=== PATIENT | female | born 1990 | race Caucasian/White ===

== ENCOUNTER 2021-03-26 12:33 | Inpatient (IN) | payer MEDICAID ==
[2021-03-26] MEDS ORDERED: OXYTOCIN 10 UNIT/ML VIAL IM PRN (12:53)
[2021-03-26] MEDS ORDERED: METHYLERGONOVINE 0.2 MG/ML VIAL IM PRN (12:53)
[2021-03-26] MEDS ORDERED: TRANEXAMIC ACID IN NACL 1,000 MG/100 ML BAG IV PRN (12:53)
[2021-03-26] MEDS ORDERED: OXYTOCIN/SODIUM CHLORIDE 500 ML IV PRN ×2 (12:53→19:26)
[2021-03-26] MEDS ORDERED: SODIUM CHLORIDE FLUSH 0.9% 10 ML SYRINGE IVP PRN ×3 (12:53→19:26)
[2021-03-26] MEDS ORDERED: METOCLOPRAMIDE 10 MG/2 ML VIAL IVP PRN (12:53)
[2021-03-26] MEDS ORDERED: hydrALAZINE INJ 20 MG/ML VIAL IVP PRN (12:53)
[2021-03-26] MEDS ORDERED: LIDOCAINE-MPF 1% 30 ML VIAL ID PRN (12:53)
[2021-03-26] MEDS ORDERED: miSOPROStoL 200 MCG TABLET BC PRN (12:53)
[2021-03-26] MEDS ORDERED: NIFEdipine 10 MG CAPSULE PO PRN (12:53)
[2021-03-26] MEDS ORDERED: LABETALOL 20 MG/4 ML SYRINGE IVP PRN ×2 (12:53)
[2021-03-26] MEDS ORDERED: CARBOPROST TROMETHAMINE 250 MCG/ML AMP IM PRN (12:53)
[2021-03-26] MEDS ORDERED: LACTATED RINGERS 1,000 ML IV SCH ×2 (13:00→18:00)
[2021-03-26 13:23] LABS: BASOPHILS % (AUTO) 0.2 %; EOSINOPHILS # (AUTO) 0.1 10^3/uL (0.0-0.7); EOSINOPHILS % (AUTO) 0.5 %; HCT - HEMATOCRIT 37.9 % (37.0-47.0); HGB - HEMOGLOBIN 12.8 g/dL (12.0-16.0); LYMPHOCYTES # (AUTO) 1.8 10^3/uL (1.5-3.5); LYMPHOCYTES % (AUTO) 15.8 %; MEAN CORPUSCULAR HEMOGLOBIN 30.5 pg (27.0-31.0); MEAN CORPUSCULAR HGB CONC 33.8 g/dL (32.0-36.0); MEAN CORPUSCULAR VOLUME 90.5 fL (81.0-99.0); MEAN PLATELET VOLUME 11.9 fL (7.9-10.8); MONOCYTES # (AUTO) 0.6 10^3/uL (0.0-1.0); MONOCYTES % (AUTO) 5.1 %; NEUTROPHILS # (AUTO) 8.7 10^3/uL (1.5-6.6); NEUTROPHILS % (AUTO) 78.1 %; PLT - PLATELET COUNT 203 10^3/uL (130-450); RED BLOOD COUNT 4.19 10^6/uL (4.20-5.40); WHITE BLOOD COUNT 11.1 x10^3/uL (4.8-10.8)
[2021-03-26 13:39] LABS: ALBUMIN/GLOBULIN RATIO 0.9 (1.0-2.2); BILIRUBIN,TOTAL 0.4 mg/dL (0.2-1.0); CALCIUM 9.4 mg/dL (8.5-10.3); CREATININE 0.6 mg/dL (0.4-1.0); POTASSIUM 3.6 mmol/L (3.5-5.0); TOTAL PROTEIN 6.5 g/dL (6.7-8.2)
[2021-03-26 14:35] LABS: MUDS CUTOFF CONCENTRATIONS CUTOFF CONC BELOW:
[2021-03-26 14:49] LABS: BILIRUBIN,URINE NEGATIVE (NEGATIVE); GLUCOSE, URINE (UA) NEGATIVE (NEGATIVE); KETONES,URINE (UA) NEGATIVE (NEGATIVE); LEUKOCYTE ESTERASE, URINE NEGATIVE (NEGATIVE); NITRITE,URINE NEGATIVE (NEGATIVE); OCCULT BLOOD,URINE NEGATIVE (NEGATIVE); PH,URINE 6.5 PH (5.0-7.5); PROTEIN,URINE TRACE mg/dL (NEGATIVE); UROBILINOGEN,URINE >=8.0 E.U./dL (NORMAL)
[2021-03-26 14:54] LABS: CLARITY,URINE CLOUDY (CLEAR)
[2021-03-26 15:01] LABS: CREATININE,URINE 167.6 mg/dL; PROTEIN/CREATININE RATIO,URINE 0.1 (<=0.2)
[2021-03-26 15:06] LABS: BACTERIA,URINE Many /HPF (None Seen); CRYSTALS,URINE >50 Calcium Oxalate /LPF; MUCUS,URINE Marked Strands; RBC,URINE 0-5 /HPF (0-5); SQUAMOUS EPITHELIAL CELL,UR MANY Squamous (<= Few)
[2021-03-26 15:14] LABS: AMPHETAMINE SCREEN,URINE NEGATIVE (NEGATIVE); BARBITURATE SCREEN,UR NEGATIVE (NEGATIVE); BENZODIAZEPINES SCREEN, URINE NEGATIVE (NEGATIVE); COCAINE SCREEN URINE NEGATIVE (NEGATIVE); METHADONE SCREEN, URINE NEGATIVE (NEGATIVE); METHAMPHETAMINES SCREEN, URINE NEGATIVE (NEGATIVE); OPIATE SCREEN, URINE NEGATIVE (NEGATIVE); OXYCODONE SCREEN, URINE NEGATIVE (NEGATIVE); PROPOXYPHENE SCREEN, URINE NEGATIVE (NEGATIVE); THC CANNABINOID SCREEN, URINE NEGATIVE (NEGATIVE); TRICYCLIC ANTIDEPRESSANT,URINE NEGATIVE (NEGATIVE)
--- NOTE | 2021-03-26 16:00 | ANESTHESIA ---
Pre-Anesthesia VS, & Labs - Diagnosis Previous C/S - Procedure repeat C/S Vital Signs: Temp Pulse Resp BP Pulse Ox 36.8 C 03/26/21 13:50 Height: 5 ft 8 in Weight (kg): 197.7 kg Body Mass Index: 66.2 BMI Classification: Morbidly Obese - NPO Last Fluid Intake: 11:00 Last Food Intake: 11:00 - Is Patient ?: Yes - Lab Results Current Lab Results: Laboratory Tests 03/26/21 14:05: Urine Opiates Screen NEGATIVE, Ur Oxycodone Screen NEGATIVE, Urine Methadone Screen NEGATIVE, Ur Propoxyphene Screen NEGATIVE, Ur Barbiturates Screen NEGATIVE, Ur Tricyclics Screen NEGATIVE, Ur Phencyclidine Scrn NEGATIVE, Ur Amphetamine Screen NEGATIVE, U Methamphetamines Scrn NEGATIVE, U Benzodiazepines Scrn NEGATIVE, Urine Cocaine Screen NEGATIVE, U Cannabinoids Screen NEGATIVE 03/26/21 13:50: Blood Type O POSITIVE, Antibody Screen NEGATIVE, Crossmatch IS Only See Detail 03/26/21 13:05: Blood Type Recheck O POSITIVE 03/26/21 13:05: Sodium 137, Potassium 3.6, Chloride 107, Carbon Dioxide 21, Anion Gap 9.0, BUN 8, Creatinine 0.6, Estimated GFR (MDRD) 117, Glucose 105 H, Calcium 9.4, Total Bilirubin 0.4, AST 15, ALT 14, Alkaline Phosphatase 142 H, Total Protein 6.5 L, Albumin 3.0 L, Globulin 3.5, Albumin/Globulin Ratio 0.9 L 03/26/21 13:05: WBC 11.1 H, RBC 4.19 L, Hgb 12.8, Hct 37.9, MCV 90.5, MCH 30.5, MCHC 33.8, RDW 14.0, Plt Count 203, MPV 11.9 H, Neut # (Auto) 8.7 H, Lymph # (Auto) 1.8, [place] # (Auto) 0.6, Eos # (Auto) 0.1, Baso # (Auto) 0.0, Absolute Nuc leated RBC 0.00, Nucleated RBC % 0.0 Lab results reviewed: Yes Fish Bones: 03/26/21 13:05 03/26/21 13:05 Home Medications and Allergies Active Medications Carboprost Tromethamine (Carboprost Tromethamine 250 Mcg/Ml Amp) 250 mcg IM Q15M PRN PRN Reason: Step 4: Hemorrhage protocol Stop: 03/31/21 12:54 Hydralazine HCl (Hydralazine Inj 20 Mg/Ml Vial) 5 - 20 mg IVP Q20M PRN; Protocol PRN Reason: SBP >160 or DBP >110 Oxytocin/Sodium Chloride (Pitocin/Sodium Chloride) 500 mls @ 999 mls/hr IV PRN PRN; Protocol PRN Reason: POST- HEMORR PREVENTION Stop: 03/31/21 12:54 Tranexamic Acid (Tranexamic 1,000 Mg/100ml-Nacl) 1,000 mg in 100 mls @ 600 mls/hr IV .ONCE PRN PRN Reason: EBL >1200mL and within 3hr Stop: 03/31/21 12:54 Lactated Ringer's (Lr) 1,000 mls @ 150 mls/hr IV .Q6H40M SARI Labetalol HCl (Labetalol 20 Mg/4 Ml Syringe) 20 mg IVP .ONCE PRN; Protocol PRN Reason: Step 9 of nifedipine protocol Stop: 03/31/21 12:55 Labetalol HCl (Labetalol 20 Mg/4 Ml Syringe) 40 mg IVP .ONCE PRN; Protocol PRN Reason: Step 9 of hydrALAZine protocol Stop: 03/31/21 12:55 Lidocaine HCl (Lidocaine-Mpf 1% 30 Ml Vial) 30 ml ID .ONCE PRN PRN Reason: PERINEAL REPAIR Stop: 03/31/21 12:54 Methylergonovine Maleate (Methylergonovine 0.2 Mg/Ml Vial) 0.2 mg IM .ONCE PRN PRN Reason: Step 2: Hemorrhage protocol Stop: 03/31/21 12:54 Metoclopramide HCl (Metoclopramide 10 Mg/2 Ml Vial) 10 mg IVP Q6H PRN PRN Reason: Nausea / Vomiting Misoprostol (Misoprostol 200 Mcg Tablet) 800 mcg BC .ONCE PRN PRN Reason: Step 3: Hemorrhage protocol Stop: 03/31/21 12:54 Nifedipine (Nifedipine 10 Mg Capsule) 10 - 20 mg PO Q20M PRN; Protocol PRN Reason: SBP >160 or DBP >110 Ondansetron HCl (Ondansetron 4 Mg/2 Ml Vial) 4 mg IVP Q4H PRN PRN Reason: Nausea / Vomiting Oxytocin (Oxytocin 10 Unit/Ml Vial) 10 unit IM .ONCE PRN PRN Reason: Step one: If no IV access Stop: 03/31/21 12:54 Sodium Chloride (Sodium Chloride Flush 0.9% 10 Ml Syringe) 10 ml IVP PRN PRN PRN Reason: NEEDED PER PROVIDER ORDERS Sodium Chloride (Sodium Chloride Flush 0.9% 10 Ml Syringe) 10 ml IVP 0100,0900,1700 SARI Bupropion HCl [Wellbutrin] 200 mg PO DAILY 05/16/14 Citalopram Hydrobromide [Celexa] 20 mg PO DAILY 05/16/14 Sumatriptan Succinate [Imitrex] 100 mg PO DAILY PRN 05/16/14 Levonorgestrel/Ethin.estradiol [Introvale 0.15-0.03 mg Tablet] 1 tab PO DAILY 02/11/15 Only taking PNV Allergies/Adverse Reactions: Allergies Allergy/AdvReac Type Severity Reaction Status Date / Time codeine Allergy Hives Verified 05/16/14 00:39 Penicillins Allergy Hives Verified 05/16/14 01:03 Sulfa (Sulfonamide Allergy Hives Verified 10/27/14 20:09 Antibiotics) Anes History & Medical History - Anesthetic History Anesthesia Complications: reports: No previous complications - Medical History Cardiovascular: reports: None Pulmonary: reports: Asthma (last inhalor use over 6 months ago) Gastrointestinal: reports: None Urinary: reports: None Neuro: reports: None Musculoskeletal: reports: None Endocrine/Autoimmune: reports: None Blood Disorders: reports: None Skin: reports: None Smoking Status: Current every day smoker Psychosocial: reports: Depression, Anxiety, Cannabis, Other (PTSD and bipolar) History of Cancer?: No - Surgical History Eyes Ears Nose Throat (EENT): reports: Tonsil/Adenoidectomy Gynecologic: reports: section Exam General: Alert, Oriented x3, Cooperative, No acute distress Dental: WNL Mouth Openin Fingerbreadth Neck Mobility: Normal Mallampati classification: II Thyromental Distance: 4-6 cm Mental/Cognitive Status: Alert/Oriented X3, Normal for patient Plan Anesthesia Type: Spinal Consent for Procedure(s) Verified and Reviewed: Yes Code Status: Attempt Resuscitation ASA classification: 3-Severe systemic disease Is this case an emergency?: No
[2021-03-26] MEDS ORDERED: BUPIVACAINE 0.5%-EPI 1:200000 PF 30 ML VIAL ONE ×2 (16:07→17:35)
[2021-03-26] MEDS ORDERED: CITRIC ACID/SODIUM CITRATE 15 ML UDC PO ONE (16:12)
[2021-03-26] MEDS ORDERED: OXYTOCIN 10 UNIT/ML VIAL ONE (16:21)
[2021-03-26] MEDS ORDERED: PHENYLEPHRINE 10 MG/ML VIAL ONE (16:21)
[2021-03-26] MEDS ORDERED: MORPHINE PF 5 MG/10 ML VIAL ONE (16:21)
[2021-03-26] MEDS ORDERED: fentaNYL 100 MCG/2 ML VIAL ONE (16:21)
[2021-03-26] MEDS ORDERED: CARBOPROST TROMETHAMINE 250 MCG/ML AMP IM ONE (16:23)
[2021-03-26] MEDS ORDERED: METHYLERGONOVINE 0.2 MG/ML VIAL ONE (16:23)
[2021-03-26] MEDS ORDERED: miSOPROStoL 200 MCG TABLET ONE (16:23)
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
--- NOTE | 2021-03-26 16:43 | Ultrasound Report ---
PROCEDURE: OB F/U or Repeat INDICATIONS: determine dating of , size. OUTSIDE/PRIOR DATING DATA: Last menstrual period (LMP): Unknown. LMP-based estimated date of delivery (CRISTIANO): Unknown. First dating scan (date and location): 03/26/2021 Estimated date of delivery (CRISTIANO) from first dating scan: 39 weeks 4 days. The below data below was generated using the ultrasound CRISTIANO of 03/26/2021 TECHNIQUE: Real-time scanning was performed of the fetus, with image documentation and biometric measurements. COMPARISON: None. FINDINGS: General: A single living intrauterine gestation is present. Presentation: Vertex Placenta: Placental position is anterior, without previa. Amniotic fluid index: 17.1 cm, largest pocket 6.9 cm heart rate: 132 beats per minute. Maternal cervical canal: 3.8 cm long; normal length is 2.5 cm or more. biometrics: Biparietal diameter: 9.4 cm 38 weeks 1 day Head circumference: 4.4 cm 39 weeks 5 days Abdominal circumference: 36.1 cm 40 weeks 0 days Femur length: 7.9 cm 40 weeks 3 days Estimated gestational age from initial scan: not applicable. Composite gestational age from present scan: 39 weeks 4 days Estimated weight and percentile: 3905 g 64th percentile Measurement variability in biometric dating: +/- 10 days from 12-20 weeks gestation, +/- 2 weeks from 20-30 weeks gestation, +/- 3 weeks at 30 weeks gestation or more. Other: Not applicable. IMPRESSION: 1. Single live intrauterine with ultrasound gestational age today of 39 weeks 4 days. 2. weight is at the 64th percentile. 3. MONTEZ is within normal limits. Reviewed by: Deborah Snyder MD on 03/26/2021 4:41 PM PDT Approved by: Deborah Snyder MD on 03/26/2021 4:41 PM PDT Station ID: [id number]
[2021-03-26] MEDS ORDERED: BUPIVACAINE 0.25% PF 30 ML VIAL ONE (17:35)
[2021-03-26] MEDS ORDERED: fentaNYL 100 MCG/2 ML VIAL IT ONE (17:38)
[2021-03-26] MEDS ORDERED: MORPHINE PF 5 MG/10 ML VIAL IT ONE (17:38)
[2021-03-26] MEDS ORDERED: BUPIVACAINE 0.5%-EPI 1:200000 PF 30 ML VIAL SUBQ ONE (18:00)
[2021-03-26] MEDS ORDERED: GENTAMICIN 80 MG/2 ML VIAL IV SCH (18:00)
[2021-03-26] MEDS ORDERED: GENTAMICIN IV SCH (18:00)
[2021-03-26] MEDS ORDERED: CLINDAMYCIN 900 MG/50 ML 50 ML IV ONE (18:00)
[2021-03-26] MEDS ORDERED: SODIUM CHLORIDE 0.9% IV SCH (18:00)
[2021-03-26] MEDS ORDERED: NALBUPHINE 10 MG/ML AMP IVP PRN (18:22)
[2021-03-26] MEDS ORDERED: NALOXONE 0.4 MG/ML VIAL IVP PRN ×2 (18:22→19:31)
[2021-03-26] MEDS: LACTATED RINGERS 1,000 ML IV SCH (18:30)
[2021-03-26] MEDS ORDERED: PROPOFOL 200 MG/20 ML VIAL IVP ONE (18:53)
[2021-03-26] MEDS ORDERED: KETOROLAC 30 MG/ML VIAL ONE (19:24)
[2021-03-26] MEDS ORDERED: ONDANSETRON ODT 4 MG TABLET TL PRN (19:26)
[2021-03-26] MEDS ORDERED: SIMETHICONE CHEW 80 MG TABLET PO PRN (19:26)
[2021-03-26] MEDS ORDERED: LACTATED RINGERS 700 ML IV ONE (19:28)
--- NOTE | 2021-03-26 19:30 | ANESTHESIA POST OP EVALUATION ---
Anesthesia Post Eval - Post Anesthesia Eval Vitals: Last Vital Signs Temp 37.1 C 03/26/21 19:27 Pulse 79 03/26/21 19:27 Resp 16 03/26/21 19:27 BP 110/63 03/26/21 19:27 Pulse Ox 100 03/26/21 19:27 CV Function Including HR & BP: Stable Pain Control: Satisfactory Nausea & Vomiting: Negative Mental Status: Baseline Respiratory Status: Airway Patent Hydration Status: Satisfactory Anesthesia Complications: None
[2021-03-26] MEDS ORDERED: fentaNYL 100 MCG/2 ML VIAL IVP PRN (19:31)
[2021-03-26] MEDS ORDERED: ONDANSETRON 4 MG/2 ML VIAL IVP PRN (19:31)
[2021-03-26] MEDS ORDERED: MORPHINE 2 MG/ML CARPUJECT IVP PRN (19:31)
[2021-03-26] MEDS ORDERED: HYDROmorphone 0.5 MG/0.5 ML SYRINGE IVP PRN (19:31)
--- NOTE | 2021-03-26 19:32 | OPERATIVE REPORT ---
Operative Report - General Admit Date: 03/26/21 Procedure Date: 03/26/21 Planned Procedure: Repeat Pre-Op Diagnosis: IUP at 40+5 wga, hx of x2, early labor Procedure Performed: Repeat low trasnverse Post Op Diagnosis: same and delivery of term gestation - Procedure Note Primary Surgeon: Fatmata Osborne MD Secondary Surgeon: MARY English Anesthesia Provider: Karolina Cespedes CRNA Anesthesia Technique: Spinal Pathology: Placenta for routine discard IV Fluids (mL): 1,200 (see Anesthesia record) Estimated Blood Loss (mL): 1,000 Urine Output (mL): 50 Indications: 30 yo at 40+5 wga presented to Labor and Delivery in early labor with painful contractions. Received care at [facility] but had sporadic care and did not have scheduled at 39 weeks. Given late gestational age, hx of two prior , and early labor, we proceeded to the OR for repeat low transverse . Patient had declined BTL earlier in and did not sign [facility] consent forms 30 days prior to procedure. Findings: Normal appearing uterus, tubes, and ovaries. Vigorous female in vertex presentation, weight and Apgars pending. Omentum adherent to anterior peritoneum. The fimbriated end of the left fallopian tube had been bleeding at a surface that had been adherent to the surrounding tissue. Hemostasis was obtained with light cautery to the affected area and tubal structure was unchanged. The placenta had been slightly adherent to the fundal portion of the uterus. Complications: None - Other Other Information/Narrative: Risks benefits and alternatives of the procedure were discussed. [facility] was obtained. Patient was taken to the operating room where spinal anesthesia was placed and found to be adequate. She was prepped and draped in the usual sterile fashion in the dorsal supine position with a leftward tilt. Morales catheter was in place. SCDs were in place and activated. Clindamycin 900 mg IV and gentamicin 5 mg/kg IV were given as a preoperative antibiotic. Preope rative timeout was performed. A Pfannenstiel incision was made in the skin with a scalpel and carried through the underlying layer of fascia in a combination of sharp and blunt dissection. The fascia was incised in the midline, and the incision was extended laterally with the Stanford scissors. The superior aspect of the fascial incision was grasped with the Augustina clamps, elevated, and the underlying rectus muscles were dissected off bluntly and sharply using the Stanford scissors. Attention was then turned to the inferior aspect of the incision which in a similar fashion was grasped, tented up with Augustina clamps, and the underlying rectus muscles dissected off bluntly and sharply using Stanford scissors. The rectus muscles were then in the midline. The peritoneum was identified, tented up, and entered bluntly. The peritoneal incision was extended superiorly and inferiorly with good visualization of the bladder. The bladder that blade was then inserted. A bladder flap was not created. The lower uterine segment of the uterus was identified, and incised in a transverse fashion with a scalpel. The uterus was entered bluntly. The uterine incision was extended in a craniocaudal fashion by manual stretch. Membranes weere mechanically ruptured and fluid was clear. The bladder blade was removed. The infant was delivered from from vertex position. Baby was wrapped in a warm sterile towel. Delayed cord clamping was performed. After cessation of pulsations, the cord was clamped x2 and cut. The infant was handed off to the waiting pediatricians. The placenta was removed with manual expression. The fundal portion of the placenta was adherent. The uterus was exteriorized while removing the mildly adherent placenta. It was cleared of all clots clots and debris via multiple manual swipes using Ray-Tammy x2. The placental bed underwent a gentle curettage to remove any remaining adherent placenta. The uterine incision was then repaired in a running locked fashion using 0 Vicryl suture. The incision was reinforced with a running imbricating layer again using 0-Vicryl suture. Excellent hemostasis was obtained. There was some bleeding at the fimbriated end of the left fallopian tube where it had been adherent to the surrounding tissue. Bleeding was controlled with light use of cautery. The uterus was returned to the abdomen. The gutters were cleared of all clots and debris. The pelvis was irrigated with warm normal saline. The uterine defect was well visualized in normal anatomic position it was noted again to be hemostatic. The peritoneum was then reapproximated with 2-0 Vicryl in a running fashion. The rectus muscles were then reapproximated using interrupted [id number] sutures using 2-0 Chromic. Good hemostasis was noted. The fascia was then closed using 0 Vicryl in a running fashion starting from the left lateral edge to the midline. A second suture was used to close the fascia in a running fashion starting from the right lateral edge and meeting in the midline, again using 0-Vicryl. A total of 30 cc of 0.5% bupivicaine with epinephrine was injected into the suture line prior to closure. The subcutaneous tissue was then irrigated and closed using 2-0 chromic in a running subcutaneous suture. Skin was closed in a running subcuticular suture using 4-0 Monocryl. A Prevena wound vac was applied to the incision. Procedure was well-tolerated and without complication. Sponge lap and needle counts were correct x2. Patient was taken to recovery room in stable condition. Luna Vu CNM assisted with retraction, delivery of the infant, and suturing.
[2021-03-26] MEDS: HYDROmorphone 1 MG/ML CARPUJECT ONE ×2 (20:00→20:06)
[2021-03-26 21:18] LABS: ESTIMATED AVERAGE GLUCOSE 105 mg/dL (70-100); HEMOGLOBIN A1c% 5.3 % (4.27-6.07)
[2021-03-26 22:11] LABS: CHLAMYDIA TRACHOMATIS DNA NEGATIVE (NEGATIVE); NEISSERIA GONORRHOEAE DNA NEGATIVE (NEGATIVE); TRICHOMONAS VAGINALIS DNA NEGATIVE (NEGATIVE)
[2021-03-26] MEDS: DOCUSATE SODIUM 100 MG CAPSULE PO SCH (22:54)
[2021-03-26] MEDS: ACETAMINOPHEN 500 MG TABLET PO SCH (22:54)
[2021-03-26] MEDS: oxyCODONE 5 MG TABLET PO PRN (23:55)
[2021-03-27] MEDS: KETOROLAC 30 MG/ML VIAL IVP SCH ×4 (00:58→17:44)
[2021-03-27] MEDS ORDERED: SODIUM CHLORIDE FLUSH 0.9% 10 ML SYRINGE IVP SCH ×2 (01:00)
[2021-03-27] MEDS: LACTATED RINGERS 1,000 ML IV SCH ×2 (01:57→04:07)
[2021-03-27 05:52] LABS: BASOPHILS % (AUTO) 0.2 %; EOSINOPHILS # (AUTO) 0.1 10^3/uL (0.0-0.7); HCT - HEMATOCRIT 29.8 % (37.0-47.0); LYMPHOCYTES # (AUTO) 2.3 10^3/uL (1.5-3.5); LYMPHOCYTES % (AUTO) 23.8 %; MEAN CORPUSCULAR HEMOGLOBIN 30.7 pg (27.0-31.0); MEAN CORPUSCULAR HGB CONC 33.6 g/dL (32.0-36.0); MEAN CORPUSCULAR VOLUME 91.4 fL (81.0-99.0); MEAN PLATELET VOLUME 10.7 fL (7.9-10.8); MONOCYTES # (AUTO) 0.6 10^3/uL (0.0-1.0); MONOCYTES % (AUTO) 5.8 %; NEUTROPHILS # (AUTO) 6.7 10^3/uL (1.5-6.6); NEUTROPHILS % (AUTO) 68.9 %; PLT - PLATELET COUNT 161 10^3/uL (130-450); RED BLOOD COUNT 3.26 10^6/uL (4.20-5.40); RED CELL DISTRIBUTION WIDTH 13.9 % (12.0-15.0); WHITE BLOOD COUNT 9.7 x10^3/uL (4.8-10.8)
[2021-03-27 05:59] LABS: CALCIUM 8.8 mg/dL (8.5-10.3); CREATININE 0.5 mg/dL (0.4-1.0); POTASSIUM 3.5 mmol/L (3.5-5.0)
[2021-03-27] MEDS: ACETAMINOPHEN 500 MG TABLET PO SCH ×3 (06:51→22:08)
[2021-03-27 07:42] LABS: HIV AG/AB 4TH GEN NON-REACTIVE (NON-REACTIVE)
[2021-03-27] MEDS: oxyCODONE 5 MG TABLET PO PRN ×4 (08:24→22:09)
[2021-03-27] MEDS: ONDANSETRON 4 MG/2 ML VIAL IVP PRN ×2 (08:25→19:26)
[2021-03-27] MEDS: CLINDAMYCIN 900 MG/50 ML 50 ML IV SCH ×2 (09:02→17:45)
--- NOTE | 2021-03-27 09:13 | PROVIDER PROGRESS NOTE ---
Subjective - Prog Note Date Prog Note Date: 03/27/21 Prog Note Time: 09:11 - Subjective Subjective: Patient has not yet been up and out of bed. Low urine output last night. Improved with 1L fluid bolus. BMP overnight showed creatinine 0.6. Morales remains in place. Tolerating po. Reports BF is going well. Pain well managed. Objective - Vital Signs/Intake & Output Reviewed Vital Signs: Yes Vital Signs: Vital Signs x48h Temp Pulse Resp BP Pulse Ox 03/27/21 08:03 98.1 F 84 16 109/60 98 03/27/21 05:26 98.2 F 72 19 113/57 L 100 03/27/21 01:39 79 18 115/57 L 100 Intake & Output: Intake & Output 03/24/21 03/25/21 03/26/21 03/27/21 23:59 23:59 23:59 23:59 Intake Total 2260 2110.000 Output Total 265 226 Balance 1994 1884.000 - Objective General Appearance: positive: No acute distress Respiratory: positive: No respiratory distress Cardiovascular: positive: Other (RR) Peripheral Pulses: 2+ Radial (R), 2+ Radial (L), 2+ Dorsalis pedis (R), 2+ Dorsalis pedis (L) Abdomen: positive: Non-tender, Other (FF belwo umbi Incision CDI with wound vac in place.) Skin: positive: Color nml Extremities: positive: Non-tender (mild LE edema. SCDs in place) Neurologic/Psychiatric: positive: Oriented x3 - Lab Results Fish Bones: 03/27/21 05:45 03/27/21 05:45 Other Labs: Lab Results x24hrs 03/27/21 03/27/21 03/26/21 Range/Units 05:45 05:45 14:20 WBC 9.7 (4.8-10.8) x10^3/uL RBC 3.26 L (4.20-5.40) 10^6/uL Hgb 10.0 L (12.0-16.0) g/dL Hct 29.8 L (37.0-47.0) % MCV 91.4 (81.0-99.0) fL MCH 30.7 (27.0-31.0) pg MCHC 33.6 (32.0-36.0) g/dL RDW 13.9 (12.0-15.0) % Plt Count 161 (130-450) 10^3/uL MPV 10.7 (7.9-10.8) fL Neut # (Auto) 6.7 H (1.5-6.6) 10^3/uL Lymph # (Auto) 2.3 (1.5-3.5) 10^3/uL [place] # (Auto) 0.6 (0.0-1.0) 10^3/uL Eos # (Auto) 0.1 (0.0-0.7) 10^3/uL Baso # (Auto) 0.0 (0.0-0.1) 10^3/uL Absolute Nucleated RBC 0.00 x10^3/uL Nucleated RBC % 0.0 /100WBC Sodium 134 L (135-145) mmol/L Potassium 3.5 (3.5-5.0) mmol/L Chloride 104 (101-111) mmol/L Carbon Dioxide 23 (21-32) mmol/L Anion Gap 7.0 (6-13) BUN 10 (6-20) mg/dL Creatinine 0.5 (0.4-1.0) mg/dL Estimated GFR (MDRD) 145 (>89) Glucose 96 (70-100) mg/dL Estimat Average Glucose (70-100) mg/dL Hemoglobin A1c % (4.27-6.07) % Calcium 8.8 (8.5-10.3) mg/dL Total Bilirubin (0.2-1.0) mg/dL AST (10-42) IU/L ALT (10-60) IU/L Alkaline Phosphatase (42-121) IU/L Total Protein (6.7-8.2) g/dL Albumin (3.2-5.5) g/dL Globulin (2.1-4.2) g/dL Albumin/Globulin Ratio (1.0-2.2) Urine Color Urine Clarity (CLEAR) Urine pH (5.0-7.5) PH Ur Specific Viola (1.002-1.030) Urine Protein (NEGATIVE) mg/dL Urine Glucose (UA) (NEGATIVE) mg/dL Urine Ketones (NEGATIVE) mg/dL Urine Occult Blood (NEGATIVE) Urine Nitrite (NEGATIVE) Urine Bilirubin (NEGATIVE) Urine Urobilinogen (NORMAL) E.U./dL Ur Leukocyte Esterase (NEGATIVE) Urine RBC (0-5) /HPF Urine WBC (0-5) /HPF Ur Squamous Epith Cells (<= Few) Urine Crystals /LPF Urine Bacteria (None Seen) /HPF Urine Mucus Ur Microscopic Review Urine Culture Comments Urine Creatinine mg/dL Ur Total Protein Timed mg/dL Protein/Creatinin Ratio (<=0.2) Urine Opiates Screen (NEGATIVE) Ur Oxycodone Screen (NEGATIVE) Urine Methadone Screen (NEGATIVE) Ur Propoxyphene Screen (NEGATIVE) Ur Barbiturates Screen (NEGATIVE) Ur Tricyclics Screen (NEGATIVE) Ur Phencyclidine Scrn (NEGATIVE) Ur Amphetamine Screen (NEGATIVE) U Methamphetamines Scrn (NEGATIVE) U Benzodiazepines Scrn (NEGATIVE) Urine Cocaine Screen (NEGATIVE) U Cannabinoids Screen (NEGATIVE) Chlam trachomat DNA PCR NEGATIVE (NEGATIVE) HIV 1&2 Ag/Ab, 4th Gen (NON-REACTIVE) N.gonorrhoeae DNA (PCR) NEGATIVE (NEGATIVE) T. vaginalis (PCR) NEGATIVE (NEGATIVE) Blood Type Blood Type Recheck Antibody Screen Crossmatch IS Only 03/26/21 03/26/21 03/26/21 Range/Units 14:20 14:05 13:50 WBC (4.8-10.8) x10^3/uL RBC (4.20-5.40) 10^6/uL Hgb (12.0-16.0) g/dL Hct (37.0-47.0) % MCV (81.0-99.0) fL MCH (27.0-31.0) pg MCHC (32.0-36.0) g/dL RDW (12.0-15.0) % Plt Count (130-450) 10^3/uL MPV (7.9-10.8) fL Neut # (Auto) (1.5-6.6) 10^3/uL Lymph # (Auto) (1.5-3.5) 10^3/uL [place] # (Auto) (0.0-1.0) 10^3/uL Eos # (Auto) (0.0-0.7) 10^3/uL Baso # (Auto) (0.0-0.1) 10^3/uL Absolute Nucleated RBC x10^3/uL Nucleated RBC % /100WBC Sodium (135-145) mmol/L Potassium (3.5-5.0) mmol/L Chloride (101-111) mmol/L Carbon Dioxide (21-32) mmol/L Anion Gap (6-13) BUN (6-20) mg/dL Creatinine (0.4-1.0) mg/dL Estimated GFR (MDRD) (>89) Glucose (70-100) mg/dL Estimat Average Glucose (70-100) mg/dL Hemoglobin A1c % (4.27-6.07) % Calcium (8.5-10.3) mg/dL Total Bilirubin (0.2-1.0) mg/dL AST (10-42) IU/L ALT (10-60) IU/L Alkaline Phosphatase (42-121) IU/L Total Protein (6.7-8.2) g/dL Albumin (3.2-5.5) g/dL Globulin (2.1-4.2) g/dL Albumin/Globulin Ratio (1.0-2.2) Urine Color YELLOW Urine Clarity CLOUDY (CLEAR) Urine pH 6.5 (5.0-7.5) PH Ur Specific [place] 1.020 (1.002-1.030) Urine Protein TRACE (NEGATIVE) mg/dL Urine Glucose (UA) NEGATIVE (NEGATIVE) mg/dL Urine Ketones NEGATIVE (NEGATIVE) mg/dL Urine Occult Blood NEGATIVE (NEGATIVE) Urine Nitrite NEGATIVE (NEGATIVE) Urine Bilirubin NEGATIVE (NEGATIVE) Urine Urobilinogen >=8.0 H (NORMAL) E.U./dL Ur Leukocyte Esterase NEGATIVE (NEGATIVE) Urine RBC 0-5 (0-5) /HPF Urine WBC 6-10 H (0-5) /HPF Ur Squamous Epith Cells MANY Squamous H (<= Few) Urine Crystals >50 Calcium Oxalate /LPF Urine Bacteria Many H (None Seen) /HPF Urine Mucus Marked Strands Ur Microscopic Review INDICATED Urine Culture Comments NOT INDICATED Urine Creatinine 167.6 mg/dL Ur Total Protein Timed 19 mg/dL Protein/Creatinin Ratio 0.1 (<=0.2) Urine Opiates Screen NEGATIVE (NEGATIVE) Ur Oxycodone Screen NEGATIVE (NEGATIVE) Urine Methadone Screen NEGATIVE (NEGATIVE) Ur Propoxyphene Screen NEGATIVE (NEGATIVE) Ur Barbiturates Screen NEGATIVE (NEGATIVE) Ur Tricyclics Screen NEGATIVE (NEGATIVE) Ur Phencyclidine Scrn NEGATIVE (NEGATIVE) Ur Amphetamine Screen NEGATIVE (NEGATIVE) U Methamphetamines Scrn NEGATIVE (NEGATIVE) U Benzodiazepines Scrn NEGATIVE (NEGATIVE) Urine Cocaine Screen NEGATIVE (NEGATIVE) U Cannabinoids Screen NEGATIVE (NEGATIVE) Chlam trachomat DNA PCR (NEGATIVE) HIV 1&2 Ag/Ab, 4th Gen (NON-REACTIVE) N.gonorrhoeae DNA (PCR) (NEGATIVE) T. vaginalis (PCR) (NEGATIVE) Blood Type O POSITIVE Blood Type Recheck Antibody Screen NEGATIVE Crossmatch IS Only See Detail 03/26/21 03/26/21 03/26/21 Range/Units 13:12 13:05 13:05 WBC (4.8-10.8) x10^3/uL RBC (4.20-5.40) 10^6/uL Hgb (12.0-16.0) g/dL Hct (37.0-47.0) % MCV (81.0-99.0) fL MCH (27.0-31.0) pg MCHC (32.0-36.0) g/dL RDW (12.0-15.0) % Plt Count (130-450) 10^3/uL MPV (7.9-10.8) fL Neut # (Auto) (1.5-6.6) 10^3/uL Lymph # (Auto) (1.5-3.5) 10^3/uL [place] # (Auto) (0.0-1.0) 10^3/uL Eos # (Auto) (0.0-0.7) 10^3/uL Baso # (Auto) (0.0-0.1) 10^3/uL Absolute Nucleated RBC x10^3/uL Nucleated RBC % /100WBC Sodium 137 (135-145) mmol/L Potassium 3.6 (3.5-5.0) mmol/L Chloride 107 (101-111) mmol/L Carbon Dioxide 21 (21-32) mmol/L Anion Gap 9.0 (6-13) BUN 8 (6-20) mg/dL Creatinine 0.6 (0.4-1.0) mg/dL Estimated GFR (MDRD) 117 (>89) Glucose 105 H (70-100) mg/dL Estimat Average Glucose (70-100) mg/dL Hemoglobin A1c % (4.27-6.07) % Calcium 9.4 (8.5-10.3) mg/dL Total Bilirubin 0.4 (0.2-1.0) mg/dL AST 15 (10-42) IU/L ALT 14 (10-60) IU/L Alkaline Phosphatase 142 H (42-121) IU/L Total Protein 6.5 L (6.7-8.2) g/dL Albumin 3.0 L (3.2-5.5) g/dL Globulin 3.5 (2.1-4.2) g/dL Albumin/Globulin Ratio 0.9 L (1.0-2.2) Urine Color Urine Clarity (CLEAR) Urine pH (5.0-7.5) PH Ur Specific [place] (1.002-1.030) Urine Protein (NEGATIVE) mg/dL Urine Glucose (UA) (NEGATIVE) mg/dL Urine Ketones (NEGATIVE) mg/dL Urine Occult Blood (NEGATIVE) Urine Nitrite (NEGATIVE) Urine Bilirubin (NEGATIVE) Urine Urobilinogen (NORMAL) E.U./dL Ur Leukocyte Esterase (NEGATIVE) Urine RBC (0-5) /HPF Urine WBC (0-5) /HPF Ur Squamous Epith Cells (<= Few) Urine Crystals /LPF Urine Bacteria (None Seen) /HPF Urine Mucus Ur Microscopic Review Urine Culture Comments Urine Creatinine mg/dL Ur Total Protein Timed mg/dL Protein/Creatinin Ratio (<=0.2) Urine Opiates Screen (NEGATIVE) Ur Oxycodone Screen (NEGATIVE) Urine Methadone Screen (NEGATIVE) Ur Propoxyphene Screen (NEGATIVE) Ur Barbiturates Screen (NEGATIVE) Ur Tricyclics Screen (NEGATIVE) Ur Phencyclidine Scrn (NEGATIVE) Ur Amphetamine Screen (NEGATIVE) U Methamphetamines Scrn (NEGATIVE) U Benzodiazepines Scrn (NEGATIVE) Urine Cocaine Screen (NEGATIVE) U Cannabinoids Screen (NEGATIVE) Chlam trachomat DNA PCR (NEGATIVE) HIV 1&2 Ag/Ab, 4th Gen NON-REACTIVE (NON-REACTIVE) N.gonorrhoeae DNA (PCR) (NEGATIVE) T. vaginalis (PCR) (NEGATIVE) Blood Type Blood Type Recheck O POSITIVE Antibody Screen Crossmatch IS Only 03/26/21 03/26/21 Range/Units 13:05 13:05 WBC 11.1 H (4.8-10.8) x10^3/uL RBC 4.19 L (4.20-5.40) 10^6/uL Hgb 12.8 (12.0-16.0) g/dL Hct 37.9 (37.0-47.0) % MCV 90.5 (81.0-99.0) fL MCH 30.5 (27.0-31.0) pg MCHC 33.8 (32.0-36.0) g/dL RDW 14.0 (12.0-15.0) % Plt Count 203 (130-450) 10^3/uL MPV 11.9 H (7.9-10.8) fL Neut # (Auto) 8.7 H (1.5-6.6) 10^3/uL Lymph # (Auto) 1.8 (1.5-3.5) 10^3/uL [place] # (Auto) 0.6 (0.0-1.0) 10^3/uL Eos # (Auto) 0.1 (0.0-0.7) 10^3/uL Baso # (Auto) 0.0 (0.0-0.1) 10^3/uL Absolute Nucleated RBC 0.00 x10^3/uL Nucleated RBC % 0.0 /100WBC Sodium (135-145) mmol/L Potassium (3.5-5.0) mmol/L Chloride (101-111) mmol/L Carbon Dioxide (21-32) mmol/L Anion Gap (6-13) BUN (6-20) mg/dL Creatinine (0.4-1.0) mg/dL Estimated GFR (MDRD) (>89) Glucose (70-100) mg/dL Estimat Average Glucose 105 H (70-100) mg/dL Hemoglobin A1c % 5.3 (4.27-6.07) % Calcium (8.5-10.3) mg/dL Total Bilirubin (0.2-1.0) mg/dL AST (10-42) IU/L ALT (10-60) IU/L Alkaline Phosphatase (42-121) IU/L Total Protein (6.7-8.2) g/dL Albumin (3.2-5.5) g/dL Globulin (2.1-4.2) g/dL Albumin/Globulin Ratio (1.0-2.2) Urine Color Urine Clarity (CLEAR) Urine pH (5.0-7.5) PH Ur Specific [place]ola (1.002-1.030) Urine Protein (NEGATIVE) mg/dL Urine Glucose (UA) (NEGATIVE) mg/dL Urine Ketones (NEGATIVE) mg/dL Urine Occult Blood (NEGATIVE) Urine Nitrite (NEGATIVE) Urine Bilirubin (NEGATIVE) Urine Urobilinogen (NORMAL) E.U./dL Ur Leukocyte Esterase (NEGATIVE) Urine RBC (0-5) /HPF Urine WBC (0-5) /HPF Ur Squamous Epith Cells (<= Few) Urine Crystals /LPF Urine Bacteria (None Seen) /HPF Urine Mucus Ur Microscopic Review Urine Culture Comments Urine Creatinine mg/dL Ur Total Protein Timed mg/dL Protein/Creatinin Ratio (<=0.2) Urine Opiates Screen (NEGATIVE) Ur Oxycodone Screen (NEGATIVE) Urine Methadone Screen (NEGATIVE) Ur Propoxyphene Screen (NEGATIVE) Ur Barbiturates Screen (NEGATIVE) Ur Tricyclics Screen (NEGATIVE) Ur Phencyclidine Scrn (NEGATIVE) Ur Amphetamine Screen (NEGATIVE) U Methamphetamines Scrn (NEGATIVE) U Benzodiazepines Scrn (NEGATIVE) Urine Cocaine Screen (NEGATIVE) U Cannabinoids Screen (NEGATIVE) Chlam trachomat DNA PCR (NEGATIVE) HIV 1&2 Ag/Ab, 4th Gen (NON-REACTIVE) N.gonorrhoeae DNA (PCR) (NEGATIVE) T. vaginalis (PCR) (NEGATIVE) Blood Type Blood Type Recheck Antibody Screen Crossmatch IS Only Assessment/Plan - Problem List (1) delivery delivered Impression: Encouraged to get UOB and start ambulating DC Morales when ambulating UOP improved with bolus; creatinine wnl Pain well managed BF going well VTE PPX: -SCDs while in bed 0Lovenox 40 mg SC daily while in-patient SOCIAL: Sporadic care, unclear housing, social disarray, older children with parents in [place] -[place] consult Cont in-patient care (3) History of wound infection Impression: hx of complex wound infection Treatment for leg abscess this BMI>45 EBL >=1L -Cont abx for 24 hours post op (Gentamicin 5 mg/kg IV Q24 H and clindamycin 900 mg IV Q8H for 24 hours) Wound vac in place
[2021-03-27] MEDS: ENOXAPARIN 40 MG/0.4 ML SYRINGE SUBQ SCH (09:57)
[2021-03-27] MEDS: DOCUSATE SODIUM 100 MG CAPSULE PO SCH ×2 (09:57→22:09)
--- NOTE | 2021-03-27 12:57 | CONSULTATION NOTE ---
Consultation Report: Called for IV placement. #18G IV started to Rt AC x1 attempt.
[2021-03-27] MEDS: SODIUM CHLORIDE FLUSH 0.9% 10 ML SYRINGE IVP SCH ×2 (19:26→20:16)
[2021-03-27] MEDS ORDERED: oxyCODONE 5 MG TABLET PO SCH (23:45)
[2021-03-28] MEDS: IBUPROFEN 600 MG TABLET PO SCH ×4 (00:21→21:36)
[2021-03-28] MEDS: ACETAMINOPHEN 500 MG TABLET PO SCH ×3 (06:22→23:59)
[2021-03-28] MEDS: oxyCODONE 5 MG TABLET PO PRN ×3 (08:25→23:59)
[2021-03-28] MEDS: DOCUSATE SODIUM 100 MG CAPSULE PO SCH ×2 (08:51→21:36)
[2021-03-28] MEDS: ENOXAPARIN 40 MG/0.4 ML SYRINGE SUBQ SCH (08:51)
--- NOTE | 2021-03-28 17:09 | PROVIDER PROGRESS NOTE ---
Subjective - Prog Note Date Prog Note Date: 03/28/21 Prog Note Time: 09:00 - Subjective Subjective: Patient has been out of bed with limited ambulation. Has been voiding. Tolerating po. Has been voiding. CPS assessment this am. Reports feeding going well. Bedside RN providing formula. Objective - Vital Signs/Intake & Output Reviewed Vital Signs: Yes Vital Signs: Vital Signs x48h Temp Pulse Resp BP BP Pulse Ox 03/28/21 15:48 98.8 F 100 20 128/62 99 03/28/21 12:26 99.0 F 101 H 18 152/78 H 98 Intake & Output: Intake & Output 03/25/21 03/26/21 03/27/21 03/28/21 23:59 23:59 23:59 23:59 Intake Total 2260 5322.250 Output Total 265 1326 Balance 1995 3996.250 - Objective General Appearance: positive: No acute distress Respiratory: positive: No respiratory distress Cardiovascular: positive: Other (RR) Peripheral Pulses: 2+ Radial (R), 2+ Radial (L), 2+ Posterior tibialis (R), 2+ Posterior tibialis (L) Abdomen: positive: Other (Appropriately tender, FF below umbi. Dressing CDI. Wound vac in place.) Neurologic/Psychiatric: positive: Oriented x3 - Lab Results Fish Bones: 03/27/21 05:45 03/27/21 05:45 Other Labs: Lab Results x24hrs 03/26/21 Range/Units 13:12 Hepatitis Be Antibody NONREACTIVE Assessment/Plan - Problem List (2) History of wound infection Impression: ABx for 24 hours post op Wound vac in place (4) delivery delivered Impression: Encourage ambulation Slow to progress to discharge goals Tolerating po Voiding CPS evaluation pending [facility] inpatient care
[2021-03-29] MEDS: IBUPROFEN 600 MG TABLET PO SCH ×3 (03:43→18:32)
[2021-03-29] MEDS: ACETAMINOPHEN 500 MG TABLET PO SCH ×2 (08:15→16:06)
[2021-03-29 09:03] VITALS: BP 124/66
[2021-03-29] MEDS: DOCUSATE SODIUM 100 MG CAPSULE PO SCH (09:14)
[2021-03-29] MEDS: ENOXAPARIN 40 MG/0.4 ML SYRINGE SUBQ SCH (09:17)
--- NOTE | 2021-03-29 18:02 | Discharge Plan ---
Discharge Plan Problem Reviewed?: Yes Disposition: Home, Self Care Condition: Good Prescriptions: Acetaminophen [Acetaminophen Extra Strength] 1,000 mg PO Q8H PRN #60 tablet PRN Reason: Pain Docusate Sodium 100Mg Capsule [Colace 100Mg Capsule] 100 - 200 mg PO BID PRN #60 cap PRN Reason: Constipation Ibuprofen [Motrin] 600 mg PO Q6H PRN #60 tab PRN Reason: Pain oxyCODONE [Roxicodone] 2.5 - 5 mg PO Q4H PRN #12 tablet PRN Reason: Severe Pain Diet: Regular Additional Instructions or Follow Up instructions: Nothing in the vagina for 6 weeks: No intercourse, tampons, douching Call for: -Fever greater than 100.5 -Pain that does not improve with pain medication -Heavy bleeding in which you are soaking a pad an hour for 2 hours in a row -Incision becomes hot, hard, red, starts to open, or leaks foul smelling fluid No lifting more than 10# for 4 [address] while on narcotics Ok to shower. Let water run over the incision. Do not soap, scrub, or apply lotion. Pat dry with a clean towel or bridger a founder chairman and chief creative officer. The surgical stickers will start to peel off and you can remove them when they do. Otherwise, the provider will remove them at your one week follow-up appointment. OK to use an unscented sanitary napkin or clean washcloth to keep the incision dry if the belly folds over the incision. No Smoking: If you smoke, Please STOP! Call for help. Follow-up with: Johanna Calderon MD [Primary Care Provider] - Jes Osborne MD [Provider Admit Priv/Credential] - 1 Week (Must be seen in clinic to remove wound vac)
--- NOTE | 2021-03-29 18:57 | Labor Flowsheet ---
Labor Flowsheet Datetime Report Generated by CPN: 03/29/2021 18:56 Datetime: 03/26/2021 18:16 VAGINAL EXAM Membranes Ruptured Date/Time: 03/26/2021 18:04 Membranes Rupture Method: Artificial Datetime: 03/26/2021 15:45 VITAL SIGNS NBP Sys/Sujatha/Mean (mmHg): 127 : 69 : 81 Pulse: 91 SpO2 (%): 99 Datetime: 03/26/2021 14:30 UTERINE ACTIVITY Monitor Mode: External Frequency (min): 1 contraction with uterine irritability Quality: Mild Duration (sec): 70 Pattern: Normal: <= 5 Contractions in 10 Minutes Resting Tone (Palpate): Relaxed ASSESSMENT A Monitor Mode: Telemetry FHR Baseline Rate : 145 Variability: Moderate 6-25 bpm Accelerations: 10X10 Decelerations: None Category: Category I PATIENT CARE Oxygen Method: Room Air
--- NOTE | 2021-04-08 17:52 | DISCHARGE SUMMARY ---
Discharge Summary Admit Date: 03/26/21 Discharge Date: 03/29/21 Discharging Provider: Dylon Condition at Discharge: Good Discharge Disposition: 01 Home, Self Care - DIAGNOSES Admission Diagnoses: IUP at 40+5 wga Hx of 2 prior Labor BMI 48 Hx of wound complications Discharge Diagnoses with Status of Each Condition: Same and delivery of term gestation - HPI History of Present Illness: Patient is a 30 yo here who presented with painful contractions in the setting of 2 prior c-sections. History convoluted. Confirmed with verbal report from Dr. Coreas at [facility]. Arrived in triage on public bus today reporting painful contractions. Patient originally reports that she is 40+5 wga and had been followed by Dr. Johanna Calderon at [facility]. Dr. Calderon is no longer in practice. She had been seen by Dr. Coreas at [facility] in [place]. She reports that he was very unethical and cancelled her surgery on the date it was scheduled. Dr. Coreas states that she no-showed for her and has been evasive with further attempts at scheduling. he did confirm her gestational age to be 40+5 wga. Records were obtained from [facility] and reviewed. States she "coded" during her first due to an allergy to her epidural and wants a spinal. No issues with spinal in second delivery. Elevated blood pressures at presentation. BP noted to be mild range on 03/02/21 PNV Desires tubal ligation. Clinic notes state she declines BTL. I called clinic and they have no record of signing [facility] consents. ANALPHYLAXIS to PCN: Gentamicin and clindamycin for procedure Wound complication with first Also reports 6 month loss after fall and apparent abruption. Was not aware she was at the time. DATING: LMP 08/14/20 gives CRISTIANO 05/21/21 US on 01/26/21 at 32+2 wga gives CRISTIANO 03/21/21, definitive - CONSULTS | PROCEDURES Procedures: Repeat low transverse - HOSPITAL COURSE Hospital Course: 30 yo at 40+5 wga presented to Labor and Delivery in early labor with pa inful contractions. Received care at [facility] but had sporadic care and did not have scheduled at 39 weeks. Given late gestational age, hx of two prior , and early labor, we proceeded to the OR for repeat low transverse . Patient had declined BTL earlier in and did not sign [facility] consent forms 30 days prior to procedure. Patient underwent repeat low trasnverse which was well tolerated and without complication. Vigorous female infant weighing 3745g at delivery. course was medically uncomplicated. SW consult for unclear housing status/social disarray with CPS hold on and eventual infant discharge to foster care. By PPD# 3, patient was meeting goals for discharge and discharged to home. Plan to follow-up in one week for wound vac removal Rh positive and Rub imm - ALLERGIES Allergies/Adverse Reactions: Allergies Allergy/AdvReac Type Severity Reaction Status Date / Time aripiprazole [From Abilify] Allergy Unknown Verified 03/31/21 21:47 bee venom protein (honey bee) Allergy Unknown Verified 03/31/21 21:47 chlorhexidine Allergy Hives Verified 03/31/21 21:47 [From Hibiclens] codeine Allergy Hives Verified 03/31/21 21:47 Latex, Natural Rubber Allergy Unknown Verified 03/31/21 21:47 Penicillins Allergy Hives Verified 03/31/21 21:47 procaine [From Novocain] Allergy Unknown Verified 03/31/21 21:47 shellfish derived Allergy Unknown Verified 03/31/21 21:47 Sulfa (Sulfonamide Allergy Hives Verified 03/31/21 21:47 Antibiotics) - MEDICATIONS Home Medications: Ambulatory Orders Medication Instructions Recorded Confirmed No Known Home Medications 03/31/21 03/31/21 - PHYSICAL EXAM AT DISCHARGE General Appearance: positive: No acute distress Respiratory: positive: No respiratory distress, Breath sounds nml Cardiovascular: positive: Regular rate & rhythm Peripheral Pulses: positive: 1+ Abdomen: positive: Non-tender, No distention, Other (wound vac in place) Skin: positive: Color nml Extremities: positive: Non-tender Neurologic/Psychiatric: positive: Oriented x3 - LABS Result Diagrams: 03/27/21 05:45 03/27/21 05:45 - FOLLOW UP Follow Up: [address] Osborne - TIME SPENT Time Spent in Discharge (Minutes): 30
== END 2021-03-29 18:01 | disposition home or self-care (01) | DRG 788 ==
LOC: WFO 12:33 → FBP 12:41 → WFO 12:52 → FBP 12:53 → EEVIPCON 12:53 → FBP 18:28 → OBSVTOIN 18:38
PROVIDERS: ADMIT Obstetrics & Gynecology; ATTEND Obstetrics & Gynecology
PROC: 10D00Z1 Extraction of Products of Conception, Low, Open Approach (ICD-10-PCS; principal; 2021-03-26 16:00)
DX: O34.219 Maternal care for unspecified type scar from previous cesarean delivery (principal); Z3A.40 40 weeks gestation of pregnancy; Z37.0 Single live birth; O13.4 Gestational [pregnancy-induced] hypertension without significant proteinuria, complicating childbirth; O99.214 Obesity complicating childbirth; E66.01 Morbid (severe) obesity due to excess calories; O99.334 Smoking (tobacco) complicating childbirth; F17.210 Nicotine dependence, cigarettes, uncomplicated; Z88.0 Allergy status to penicillin
CPT/HCPCS: 36415; 76816; 80048; 80053; 80306; 81001; 82570; 83036; 84156; 85025; 86707; 86780; 86850; 86900; 86901; 86920; 87389; 87491; 87591; 87661; A9270; G0378; J1170; J1650; J2210; J2274; J7120; 81003; 87081; 87086

== ENCOUNTER 2021-03-31 21:39 | Emergency (ER) | payer MEDICAID ==
--- NOTE | 2021-03-31 22:49 | ED Physician Documentation ---
History of Present Illness - Stated complaint Stated Complaint: POST OP PAIN - Chief complaint Chief Complaint: Wound - History obtained from History obtained from: Patient - History of Present Illness Timing: Today - Additonal information Additional information: 30-year-old female presented to the hospital by bus 5 days ago and required section for term . CPS has been involved in the case and has placed an administrative hold on the baby. The patient has been discharged from the hospital on 03-29-2021 and has been boarding with the baby. She has been told she would be allowed to board with the baby until Friday04-02-2021. The patient apparently let a male into her room who was willing to take the mother and baby away and this posed a security risk to the baby. The patient has been sent to the ED to examine her wound and she arrives without knowledge that the family place will not take her back. As the patient has been discharged from the hospital she has not been receiving any medications and has not been taking pain medication for more than 24 hours. She is complaining of some nausea and pain in her wound. She also is complaining of some pain in her left axilla. She indicates a prior history of an infected incision that dehisced and at that point infection traveling in her lymph nodes including to her axillae. Review of Systems Constitutional: denies: Fever Eyes: denies: Decreased vision Ears: denies: Ear pain Nose: denies: Congestion Throat: denies: Sore throat Cardiac: denies: Chest pain / pressure Respiratory: denies: Dyspnea, Cough GI: reports: Abdominal Pain, Nausea. denies: Vomiting, Constipation, Diarrhea : denies: Dysuria, Frequency Skin: reports: Other (pain in axilla). denies: Rash Musculoskeletal: denies: Neck pain, Back pain, Extremity pain Neurologic: denies: Generalized weakness, Focal weakness, Numbness PD PAST MEDICAL HISTORY - Past Medical History Past Medical History: Yes Cardiovascular: None Respiratory: Asthma Neuro: None Endocrine/Autoimmune: None GI: None DEAL ARCHITECT: None : None HEENT: None Psych: Depression Musculoskeletal: None Derm: None - Past Surgical History Past Surgical History: Yes /DEAL ARCHITECT: section HEENT: Tonsil/Adenoidectomy - Present Medications Home Medications: Ambulatory Orders Medication Instructions Recorded Confirmed No Known Home Medications 05/22/21 05/22/21 - Allergies Allergies/Adverse Reactions: Allergies Allergy/AdvReac Type Severity Reaction Status Date / Time aripiprazole [From Abilify] Allergy Unknown Verified 03/31/21 21:47 bee venom protein (honey bee) Allergy Unknown Verified 03/31/21 21:47 chlorhexidine Allergy Hives Verified 03/31/21 21:47 [From Hibiclens] codeine Allergy Hives Verified 03/31/21 21:47 Latex, Natural Rubber Allergy Unknown Verified 03/31/21 21:47 Penicillins Allergy Hives Verified 03/31/21 21:47 procaine [From Novocain] Allergy Unknown Verified 03/31/21 21:47 shellfish derived Allergy Unknown Verified 03/31/21 21:47 Sulfa (Sulfonamide Allergy Hives Verified 03/31/21 21:47 Antibiotics) - Social History Does the pt smoke?: Yes Smoking Status: Current every day smoker Does the pt drink ETOH?: No Does the pt have substance abuse?: No - Immunizations Immunizations are current?: No Immunizations: TDAP >10years/unknown - POLST Patient has POLST: No PD ED PE NORMAL - General General: Alert and oriented X 3, No acute distress, Well developed/nourished - HEENT HEENT: Atraumatic, PERRL, EOMI - Respiratory Respiratory: No respiratory distress - Abdomen Abdomen: Soft, Non distended, No organomegaly, Other (There is a healing Pfannenstiel incision with no signs of inflammation drainage or dehiscence. The wound is clean and dry.) - Back Back: No CVA TTP, No spinal TTP - Derm Derm: Normal color, Warm and dry, No rash, Other (The left axilla has subcutaneous mass without overlying erythema or signs of acute inflamation. ) - Extremities Extremities: No deformity, No edema - Neuro Neuro: Alert and oriented X 3, undraped artist model 2-12 intact, No motor deficit, No sensory deficit, Normal speech Eye Opening: Spontaneous Motor: Obeys Commands Verbal: Oriented GCS Score: 15 - Psych Psych: Normal affect, Other (mood is labile with periodic crying) Results - Vitals Vitals: Vital Signs - 24 hr 03/31/21 04/01/21 21:40 00:02 Temperature 37.0 C 36.9 C Heart Rate 98 96 Respiratory 16 16 Rate Blood Pressure 135/95 H 161/99 H O2 Saturation 100 100 Oxygen O2 Source Room air PD MEDICAL DECISION MAKING - ED course Complexity details: reviewed old records, reviewed results, re-evaluated pradip stephens, considered differential, d/w patient, d/w financial services education consultant (Lauren suggests treatment of post operative pain with toradal and he has concern for security of the baby. ) ED course: 30-year-old female who has come to the hospital with limited care has delivered a term infant by section 5 days ago and she has been discharged from the hospital 2 days ago. She has been rooming in with the baby who has an administrative hold by CPS. She has had some behavior that led to a concern for the security of the baby and she has been asked to leave the hospital. I personally confronted the patient with this knowledge and she accepted this and became a bit emotional as she has not been kicked out of the hospital before. She believes that the baby will eventually be placed with her foster parents in [place]. She indicates that she does have somewhere to stay today with a friend off of [address] and she states that all of her belongings and things to take care the baby are in her car, which is [place] [address]. Departure - Departure Disposition: 01 Home, Self Care Clinical Impression: delivery delivered, Post-operative pain Condition: Stable Instructions: C Section Dc, ED Post Op Pain Follow-Up: Johanna Calderon MD [Physician No Access] - Jes Osborne MD [Provider Admit Priv/Credential] - Discharge Date/Time: 04/01/21 00:04
[2021-03-31] MEDS ORDERED: KETOROLAC 60 MG/2 ML VIAL IM STA (23:35)
[2021-04-01 00:03] VITALS: BP 161/99
== END 2021-04-01 00:04 | disposition home or self-care (01) ==
LOC: ED 21:39
DX: O90.89 Other complications of the puerperium, not elsewhere classified (principal); G89.18 Other acute postprocedural pain; R22.32 Localized swelling, mass and lump, left upper limb; O99.335 Smoking (tobacco) complicating the puerperium; F17.200 Nicotine dependence, unspecified, uncomplicated
CPT/HCPCS: 96372; 99283; 99284

== ENCOUNTER 2021-05-23 13:57 | Outpatient (CLI) | payer MEDICAID | END 2021-05-23 13:58 | disposition EMS.NT | LOC: EMS 13:57 | DX: R11.0 Nausea (principal) ==

== ENCOUNTER 2021-05-28 14:14 | Emergency (ER) | payer MEDICAID ==
[2021-05-28 14:37] VITALS: BP 135/79
--- NOTE | 2021-05-28 15:14 | XRAY Report ---
PROCEDURE: Hand 3 View LT INDICATIONS: Trauma TECHNIQUE: 3 views of the hand(s) acquired. COMPARISON: None FINDINGS: Bones: No fractures or dislocations. No suspicious bony lesions. Soft tissues: No suspicious soft tissue calcifications. IMPRESSION: No acute left hand fracture or dislocation. Reviewed by: Tommy Matt MD on 05/28/2021 3:12 PM PDT Approved by: Tommy Matt MD on 05/28/2021 3:12 PM PDT Station ID: [id number]
--- NOTE | 2021-05-28 16:35 | ED Physician Documentation ---
PD HPI UPPER EXT INJURY - Stated complaint Stated Complaint: FELL AND LANDED ON HAND - Chief complaint Chief Complaint: Trauma Ext - History obtained from History obtained from: Patient - History of Present Illness Location: Left, Finger (thumb) Type of injury: Fall, Twist Timing - onset: Today Associated symptoms: No: Weakness, Numbness, Swelling Similar symptoms before: Has not had sx before Review of Systems Skin: denies: Abrasion (s), Laceration (s) Neurologic: denies: Focal weakness, Numbness PD PAST MEDICAL HISTORY - Past Medical History Cardiovascular: None Respiratory: Asthma Neuro: None Endocrine/Autoimmune: None GI: None 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 : None HEENT: None Psych: Depression Musculoskeletal: None Derm: None - Past Surgical History Past Surgical History: Yes /BROOM HANDLE DIPPER: section HEENT: Tonsil/Adenoidectomy - Present Medications Home Medications: Ambulatory Orders Medication Instructions Recorded Confirmed No Known Home Medications 03/31/21 03/31/21 - Allergies Allergies/Adverse Reactions: Allergies Allergy/AdvReac Type Severity Reaction Status Date / Time aripiprazole [From Abilify] Allergy Unknown Verified 05/28/21 14:33 bee venom protein (honey bee) Allergy Unknown Verified 05/28/21 14:33 chlorhexidine Allergy Hives Verified 05/28/21 14:33 [From Hibiclens] codeine Allergy Hives Verified 05/28/21 14:33 Latex, Natural Rubber Allergy Unknown Verified 05/28/21 14:33 Penicillins Allergy Hives Verified 05/28/21 14:33 procaine [From Novocain] Allergy Unknown Verified 05/28/21 14:33 shellfish derived Allergy Unknown Verified 05/28/21 14:33 Sulfa (Sulfonamide Allergy Hives Verified 05/28/21 14:33 Antibiotics) - Social History Does the pt smoke?: Yes Smoking Status: Current every day smoker Does the pt drink ETOH?: No Does the pt have substance abuse?: No - Immunizations Immunizations are current?: No Immunizations: TDAP >10years/unknown - POLST Patient has POLST: No PD ED PE NORMAL - Vitals Vital signs reviewed: Yes - General General: Alert and oriented X 3, No acute distress, Well developed/nourished - Derm Derm: Normal color, Warm and dry - Extremities Extremities: Other (left thumb base with tenderness, guarded ROM. Is not tender at UCL area per se. No noted laxity but is guarding ROM due to pain too much to really test ligaments well. ) - Neuro Neuro: Alert and oriented X 3, No motor deficit, No sensory deficit Results - Vitals Vitals: Oxygen O2 Source Room air - Rads (name of study) left hand Radiology: Prelim report reviewed (no noted fractures), See rad report PD MEDICAL DECISION MAKING - ED course Complexity details: reviewed results, considered differential, d/w patient Departure - Departure Disposition: 01 Home, Self Care Clinical Impression: Accidental fall Qualifiers: Encounter type: initial encounter Qualified Code(s): W19.XXXA - Unspecified fall, initial encounter Left thumb sprain Qualifiers: Encounter type: initial encounter Sprain of finger site: metacarpophalangeal joint Qualified Code(s): S63.642A - Sprain of metacarpophalangeal joint of left thumb, initial encounter Condition: Stable Record reviewed to determine appropriate education?: Yes Instructions: ED Sprain Finger Follow-Up: Blake Epstein MD [Provider Admit Priv/Credential] - Comments: The x-ray does not show any fractures. However it does seem like a good sprain of the thumb given the degree of pain with movement. Use the thumb spica splint to help protect that area. Gentle range of motion a few times a day so does not be too stiff. Ice elevate and rested often today and tomorrow. Ibuprofen 600 mg 3 times a day with food for the next several days to week. Add Tylenol every 4 hours if needed for pains. Recheck if not improved well over the next week. Discharge Date/Time: 05/28/21 17:27
[2021-05-28] MEDS: IBUPROFEN 600 MG TABLET PO STA (17:23)
[2021-05-28] MEDS: HYDROcod/ACETAM 5/325 MG TABLET PO STA (17:23)
== END 2021-05-28 17:27 | disposition home or self-care (01) ==
LOC: ED 14:14
DX: S63.642A Sprain of metacarpophalangeal joint of left thumb, initial encounter (principal); W18.30XA Fall on same level, unspecified, initial encounter; F17.200 Nicotine dependence, unspecified, uncomplicated
CPT/HCPCS: 73130; 99283; A9270

== ENCOUNTER 2021-09-22 21:10 | Outpatient (CLI) | payer MEDICAID | END 2021-09-22 21:11 | disposition critical access hospital (66) | LOC: EMS 21:10 | DX: R42 Dizziness and giddiness (principal) | CPT/HCPCS: A0425; A0427; A0999 ==

== ENCOUNTER 2021-09-22 21:27 | Emergency (ER) | payer MEDICAID ==
[2021-09-22 22:04] LABS: BASOPHILS % (AUTO) 0.3 %; EOSINOPHILS # (AUTO) 0.2 10^3/uL (0.0-0.7); EOSINOPHILS % (AUTO) 1.4 %; HCT - HEMATOCRIT 41.4 % (37.0-47.0); HGB - HEMOGLOBIN 13.1 g/dL (12.0-16.0); LYMPHOCYTES % (AUTO) 31.9 %; MEAN CORPUSCULAR HEMOGLOBIN 27.2 pg (27.0-31.0); MEAN CORPUSCULAR HGB CONC 31.6 g/dL (32.0-36.0); MEAN CORPUSCULAR VOLUME 85.9 fL (81.0-99.0); MONOCYTES # (AUTO) 0.7 10^3/uL (0.0-1.0); MONOCYTES % (AUTO) 5.6 %; NEUTROPHILS # (AUTO) 7.5 10^3/uL (1.5-6.6); NEUTROPHILS % (AUTO) 60.6 %; PLT - PLATELET COUNT 311 10^3/uL (130-450); RED BLOOD COUNT 4.82 10^6/uL (4.20-5.40); RED CELL DISTRIBUTION WIDTH 15.3 % (12.0-15.0); WHITE BLOOD COUNT 12.4 x10^3/uL (4.8-10.8)
[2021-09-22 22:08] LABS: BILIRUBIN,URINE NEGATIVE (NEGATIVE); GLUCOSE, URINE (UA) NEGATIVE (NEGATIVE); KETONES,URINE (UA) NEGATIVE (NEGATIVE); LEUKOCYTE ESTERASE, URINE NEGATIVE (NEGATIVE); NITRITE,URINE NEGATIVE (NEGATIVE); OCCULT BLOOD,URINE NEGATIVE (NEGATIVE); PROTEIN,URINE NEGATIVE (NEGATIVE); UROBILINOGEN,URINE 0.2 (NORMAL) E.U./dL (NORMAL)
[2021-09-22 22:15] LABS: CLARITY,URINE CLEAR (CLEAR); HCG UR QUAL NEGATIVE
[2021-09-22 22:18] LABS: ALBUMIN 3.9 g/dL (3.2-5.5); ALBUMIN/GLOBULIN RATIO 1.2 (1.0-2.2); BILIRUBIN,TOTAL 0.7 mg/dL (0.2-1.0); CALCIUM 9.3 mg/dL (8.5-10.3); CREATININE 0.5 mg/dL (0.4-1.0); POTASSIUM 3.4 mmol/L (3.5-5.0); TOTAL PROTEIN 7.1 g/dL (6.7-8.2)
--- NOTE | 2021-09-22 22:20 | ED Physician Documentation ---
History of Present Illness - Stated complaint Stated Complaint: DIZZY,SHAKES, DM - Chief complaint Chief Complaint: General - History obtained from History obtained from: Patient - Additonal information Additional information: 31-year-old woman with past medical history of asthma and type 2 diabetes presents with sudden onset dizziness around 730 or 8 PM prompting her to call EMS. Patient states that she has had episodes of dizziness in the past that came on suddenly like this 1 and has been told that she is dehydrated before. Patient endorses drinking water today and states that she had a strong cup of coffee this morning but denies other substance or alcohol use. EMS reports that she was orthostatic on scene with heart rate going from 90-1 24 and she moved from sitting to standing. Patient is asymptomatic in the emergency department. Denies fever, chest pain, shortness of breath, nausea, possibility of . 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 : None HEENT: None Psych: Depression Musculoskeletal: Fibromyalgia Derm: None - Past Surgical History Past Surgical History: Yes /SALES TRAINER: section HEENT: Tonsil/Adenoidectomy - Present Medications Home Medications: Ambulatory Orders Medication Instructions Recorded Confirmed No Known Home Medications 03/31/21 03/31/21 - Allergies Allergies/Adverse Reactions: Allergies Allergy/AdvReac Type Severity Reaction Status Date / Time aripiprazole [From Abilify] Allergy Unknown Verified 09/22/21 21:40 bee venom protein (honey bee) Allergy Unknown Verified 09/22/21 21:40 chlorhexidine Allergy Hives Verified 09/22/21 21:40 [From Hibiclens] codeine Allergy Hives Verified 09/22/21 21:40 Latex, Natural Rubber Allergy Unknown Verified 09/22/21 21:40 Penicillins Allergy Hives Verified 09/22/21 21:40 procaine [From Novocain] Allergy Unknown Verified 09/22/21 21:40 shellfish derived Allergy Unknown Verified 09/22/21 21:40 Sulfa (Sulfonamide Allergy Hives Verified 09/22/21 21:40 Antibiotics) - Social History Does the pt smoke?: Yes Smoking Status: Current every day smoker Does the pt drink ETOH?: No Does the pt have substance abuse?: No - Immunizations Immunizations are current?: No Immunizations: TDAP >10years/unknown - POLST Patient has POLST: No PD ED PE NORMAL - Vitals Vital signs reviewed: Yes - General General: Alert and oriented X 3, No acute distress, Well developed/nourished - HEENT HEENT: Atraumatic, PERRL, EOMI - Neck Neck: Supple, no meningeal sign - Cardiac Cardiac: RRR - Respiratory Respiratory: No respiratory distress, Clear bilaterally - Abdomen Abdomen: Non tender, Non distended - Derm Derm: Normal color, Warm and dry - Extremities Extremities: No edema - Neuro Neuro: Alert and oriented X 3, public address servicer 2-12 intact, No motor deficit, No sensory deficit, Normal speech - Psych Psych: Normal mood, Normal affect Results - Vitals Vitals: Vital Signs - 24 hr 09/22/21 09/22/21 21:36 22:41 Temperature 37.0 C Heart Rate 88 86 Respiratory 18 16 Rate Blood Pressure 124/88 H 119/64 O2 Saturation 99 98 Oxygen O2 Source Room air - EKG (time done) 2158 Rate: Rate (enter#) (83) Rhythm: NSR Mears: Normal Intervals: Normal MT QRS: Normal Ischemia: Normal ST segments - Labs Labs: Laboratory Tests 09/22/21 09/22/21 09/22/21 21:53 21:53 21:53 WBC 12.4 H RBC 4.82 Hgb 13.1 Hct 41.4 MCV 85.9 MCH 27.2 MCHC 31.6 L RDW 15.3 H Plt Count 311 MPV 11.0 H Neut # (Auto) 7.5 H Lymph # (Auto) 4.0 [place] # (Auto) 0.7 Eos # (Auto) 0.2 Baso # (Auto) 0.0 Absolute Nucleated RBC 0.00 Nucleated RBC % 0.0 Sodium 138 Potassium 3.4 L Chloride 100 L Carbon Dioxide 28 Anion Gap 10.0 BUN 11 Creatinine 0.5 Estimated GFR (MDRD) 144 Glucose 106 H Calcium 9.3 Total Bilirubin 0.7 AST 20 ALT 28 Alkaline Phosphatase 61 Total Protein 7.1 Albumin 3.9 Globulin 3.2 Albumin/Globulin Ratio 1.2 Lipase 37 Urine Color YELLOW Urine Clarity CLEAR Urine pH 6.0 Ur Specific [place] 1.025 Urine Protein NEGATIVE Urine Glucose (UA) NEGATIVE Urine Ketones NEGATIVE Urine Occult Blood NEGATIVE Urine Nitrite NEGATIVE Urine Bilirubin NEGATIVE Urine Urobilinogen 0.2 (NORMAL) Ur Leukocyte Esterase NEGATIVE Ur Microscopic Review NOT INDICATED Urine Culture Comments NOT INDICATED Urine HCG, Qual NEGATIVE PD MEDICAL DECISION MAKING - ED course ED course: Work-up in the emergency department is unremarkable. Patient has a follow-up appointment with her primary doctor in [place] December 06. Advised her to call and try to move up her appointment sooner. Return precautions given. Departure - Departure Disposition: Home, Self Care Clinical Impression: Orthostatic dizziness Condition: Stable Instructions: ED Hypotension Orthostatic Comments: You were seen in the emergency department for lightheadedness. Your work-up did not uncover any dangerous findings, but you should follow-up with your primary doctor as soon as possible. Please return to the emergency department if you have any new or worsening symptoms or other concerns.
[2021-09-22 22:41] VITALS: BP 119/64
== END 2021-09-23 00:16 | disposition home or self-care (01) ==
LOC: EDUNIT# → ED 21:27
DX: R42 Dizziness and giddiness (principal); E11.9 Type 2 diabetes mellitus without complications; J45.909 Unspecified asthma, uncomplicated; M79.7 Fibromyalgia; F17.200 Nicotine dependence, unspecified, uncomplicated
CPT/HCPCS: 36415; 80053; 81001; 81003; 81025; 83690; 85025; 87086; 93005; 99282; 99283

== ENCOUNTER 2022-04-22 15:07 | Emergency (ER) | payer MEDICAID ==
[2022-04-22 15:21] VITALS: BP 148/84
[2022-04-22] MEDS ORDERED: ONDANSETRON ODT 4 MG TABLET TL STA (15:21)
[2022-04-22 15:42] LABS: BASOPHILS % (AUTO) 0.3 %; EOSINOPHILS # (AUTO) 0.2 10^3/uL (0.0-0.7); EOSINOPHILS % (AUTO) 1.3 %; HCT - HEMATOCRIT 43.7 % (37.0-47.0); HGB - HEMOGLOBIN 14.1 g/dL (12.0-16.0); LYMPHOCYTES # (AUTO) 2.9 10^3/uL (1.5-3.5); LYMPHOCYTES % (AUTO) 24.3 %; MEAN CORPUSCULAR HEMOGLOBIN 28.2 pg (27.0-31.0); MEAN CORPUSCULAR HGB CONC 32.3 g/dL (32.0-36.0); MEAN CORPUSCULAR VOLUME 87.4 fL (81.0-99.0); MONOCYTES # (AUTO) 0.6 10^3/uL (0.0-1.0); MONOCYTES % (AUTO) 5.2 %; NEUTROPHILS # (AUTO) 8.1 10^3/uL (1.5-6.6); NEUTROPHILS % (AUTO) 68.6 %; PLT - PLATELET COUNT 298 10^3/uL (130-450); RED CELL DISTRIBUTION WIDTH 14.7 % (12.0-15.0); WHITE BLOOD COUNT 11.8 x10^3/uL (4.8-10.8)
[2022-04-22 15:50] LABS: ALBUMIN/GLOBULIN RATIO 1.1 (1.0-2.2); BILIRUBIN,TOTAL 0.6 mg/dL (0.2-1.0); CALCIUM 9.3 mg/dL (8.5-10.3); CREATININE 0.7 mg/dL (0.4-1.0); POTASSIUM 3.9 mmol/L (3.5-5.0); TOTAL PROTEIN 7.5 g/dL (6.7-8.2)
== END 2022-04-22 17:20 | disposition left against medical advice (07) ==
LOC: ED 15:07
DX: Z53.21 Procedure and treatment not carried out due to patient leaving prior to being seen by health care provider (principal)
CPT/HCPCS: 36415; 80053; 83690; 85025; Q0162

== ENCOUNTER 2022-04-23 17:38 | Emergency (ER) | payer MEDICAID ==
[2022-04-23] MEDS ORDERED: SODIUM CHLORIDE 0.9% 1,000 ML IV ONE (18:24)
[2022-04-23] MEDS ORDERED: ONDANSETRON ODT 4 MG TABLET TL STA (18:25)
[2022-04-23] MEDS ORDERED: KETOROLAC 60 MG/2 ML VIAL IM STA (18:25)
[2022-04-23 18:35] LABS: BILIRUBIN,URINE NEGATIVE (NEGATIVE); GLUCOSE, URINE (UA) NEGATIVE (NEGATIVE); KETONES,URINE (UA) NEGATIVE (NEGATIVE); LEUKOCYTE ESTERASE, URINE SMALL (NEGATIVE); NITRITE,URINE NEGATIVE (NEGATIVE); OCCULT BLOOD,URINE MODERATE (NEGATIVE); PROTEIN,URINE NEGATIVE (NEGATIVE); UROBILINOGEN,URINE 0.2 (NORMAL) E.U./dL (NORMAL)
[2022-04-23 18:37] LABS: CLARITY,URINE HAZY (CLEAR); HCG UR QUAL NEGATIVE
[2022-04-23 18:47] LABS: BACTERIA,URINE Moderate /HPF (None Seen); SQUAMOUS EPITHELIAL CELL,UR FEW Squamous (<= Few); WBC,URINE >25 /HPF (0-5)
[2022-04-23 18:53] LABS: BASOPHILS % (AUTO) 0.3 %; EOSINOPHILS # (AUTO) 0.2 10^3/uL (0.0-0.7); EOSINOPHILS % (AUTO) 1.5 %; HCT - HEMATOCRIT 42.5 % (37.0-47.0); HGB - HEMOGLOBIN 13.5 g/dL (12.0-16.0); LYMPHOCYTES # (AUTO) 2.6 10^3/uL (1.5-3.5); MEAN CORPUSCULAR HGB CONC 31.8 g/dL (32.0-36.0); MEAN PLATELET VOLUME 10.9 fL (7.9-10.8); MONOCYTES # (AUTO) 0.6 10^3/uL (0.0-1.0); MONOCYTES % (AUTO) 5.9 %; NEUTROPHILS # (AUTO) 6.6 10^3/uL (1.5-6.6); NEUTROPHILS % (AUTO) 66.1 %; PLT - PLATELET COUNT 295 10^3/uL (130-450); RED BLOOD COUNT 4.83 10^6/uL (4.20-5.40); RED CELL DISTRIBUTION WIDTH 14.8 % (12.0-15.0)
--- NOTE | 2022-04-23 18:54 | CT Report ---
PROCEDURE: Abdomen/Pelvis WO INDICATIONS: flank pain radiating to RLQ TECHNIQUE: Noncontrast 5 mm thick sections acquired from the diaphragms to the symphysis. 5 mm coronal and sagi ttal reformats were then performed. For radiation dose reduction, the following was used: automated exposure control, adjustment of mA and/or kV according to patient size. COMPARISON: None. FINDINGS: Image quality: Excellent. ABDOMEN: Lung bases: Lung bases are clear. Heart size is normal. Solid organs: There is diffuse fatty infiltration of the liver. The liver is enlarged, measuring 20 c m ankle: Dimension. Gallbladder is unremarkable. Pancreas is normal in contours. No adrenal nodules . Kidneys are normal in size, without hydronephrosis or nephrolithiasis. Peritoneum and bowel: Unenhanced bowel loops demonstrate normal wall thickness and caliber. No free fluid or air. Nodes and vessels: No retroperitoneal or mesenteric adenopathy by size criteria. Aorta and inferior vena cava are normal in caliber. Miscellaneous: Moderate fat-containing periumbilical hernia. PELVIS: Genitourinary: Diffuse bladder wall thickening is seen. Miscellaneous: No inguinal hernias or adenopathy. Bones: No suspicious bony lesions. No vertebral body compression fractures. IMPRESSION: 1.Diffuse bladder wall thickening may be secondary to underdistention or cystitis. Recommend correlat ion with urinalysis. 2.No renal or ureteral calculus or hydronephrosis. No significant perinephric fat stranding. 3.Hepatomegaly and diffuse hepatic steatosis. Reviewed by: Jovan Cazares MD on 04/23/2022 6:53 PM PDT Approved by: Jovan Cazares MD on 04/23/2022 6:53 PM PDT Station ID: [id number]
[2022-04-23] MEDS ORDERED: cefTRIAXone 1 GM VIAL IVP STA (19:09)
--- NOTE | 2022-04-23 19:09 | ED Physician Documentation ---
History of Present Illness - Stated complaint Stated Complaint: RT SIDE PX/METALIC TASTE/VOMIT - Chief complaint Chief Complaint: Abd Pain - Additonal information Additional information: 31-year-old female presents emergency department for evaluation of acute right flank pain with radiation to the right lower quadrant. Symptoms began at 230 this afternoon. No fevers. Some dysuria. Associated nausea and vomiting. Past surgical history most significant for x3 only. Review of Systems Constitutional: denies: Fever, Chills Nose: reports: Reviewed and negative Throat: reports: Reviewed and negative Cardiac: reports: Reviewed and negative Respiratory: reports: Reviewed and negative GI: reports: Abdominal Pain, Nausea, Vomiting : reports: Dysuria Skin: denies: Rash, Lesions Musculoskeletal: denies: Neck pain Neurologic: reports: Reviewed and negative Psychiatric: reports: Reviewed and negative PD PAST MEDICAL HISTORY - Past Medical History Past Medical History: Yes Cardiovascular: None Respiratory: Asthma Neuro: None Endocrine/Autoimmune: Type 2 diabetes GI: None 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 : None HEENT: None Psych: Depression Musculoskeletal: Fibromyalgia Derm: None - Past Surgical History Past Surgical History: Yes /DIGITAL FORENSICS EXAMINER: section HEENT: Tonsil/Adenoidectomy - Present Medications Home Medications: Ambulatory Orders Medication Instructions Recorded Confirmed Cefdinir 300 mg PO BID #14 cap 04/23/22 Phenazopyridine HCl [Pyridium] 200 mg PO TID PRN #6 tablet 04/23/22 - Allergies Allergies/Adverse Reactions: Allergies Allergy/AdvReac Type Severity Reaction Status Date / Time aripiprazole [From Abilify] Allergy Unknown Verified 04/23/22 17:57 bee venom protein (honey bee) Allergy Unknown Verified 04/23/22 17:57 chlorhexidine Allergy Hives Verified 04/23/22 17:57 [From Hibiclens] codeine Allergy Hives Verified 04/23/22 17:57 Latex, Natural Rubber Allergy Unknown Verified 04/23/22 17:57 Penicillins Allergy Hives Verified 04/23/22 17:57 procaine [From Novocain] Allergy Unknown Verified 04/23/22 17:57 shellfish derived Allergy Unknown Verified 04/23/22 17:57 Sulfa (Sulfonamide Allergy Hives Verified 04/23/22 17:57 Antibiotics) - Social History Does the pt smoke?: Yes Smoking Status: Current every day smoker Does the pt drink ETOH?: No Does the pt have substance abuse?: No - Immunizations Immunizations are current?: No Immunizations: TDAP >10years/unknown - POLST Patient has POLST: No PD ED PE NORMAL - General General: Alert and oriented X 3, No acute distress, Well developed/nourished (Morbidly obese) - HEENT HEENT: Atraumatic, Moist mucous membranes - Neck Neck: Supple, no meningeal sign, No adenopathy - Cardiac Cardiac: RRR, No murmur - Respiratory Respiratory: No respiratory distress, Clear bilaterally - Abdomen Abdomen: Normal bowel sounds. No: Non tender (Tenderness in the right flank. Exam is markedly limited by body habitus) - Back Back: No CVA TTP, No spinal TTP - Derm Derm: Normal color, Warm and dry, No rash - Extremities Extremities: No deformity - Neuro Neuro: Alert and oriented X 3 Eye Opening: Spontaneous Motor: Obeys Commands Verbal: Oriented GCS Score: 15 Results - Vitals Vitals: Vital Signs - 24 hr 04/23/22 04/23/22 17:58 18:02 Temperature 36.5 C 36.5 C Heart Rate 78 78 Respiratory 18 18 Rate Blood Pressure 95/80 95/80 O2 Saturation 100 100 Oxygen O2 Source Room air - Labs Labs: Laboratory Tests 04/23/22 04/23/22 04/23/22 18:24 18:47 18:47 WBC 10.0 RBC 4.83 Hgb 13.5 Hct 42.5 MCV 88.0 MCH 28.0 MCHC 31.8 L RDW 14.8 Plt Count 295 MPV 10.9 H Neut # (Auto) 6.6 Lymph # (Auto) 2.6 [place] # (Auto) 0.6 Eos # (Auto) 0.2 Baso # (Auto) 0.0 Absolute Nucleated RBC 0.00 Nucleated RBC % 0.0 Sodium 139 Potassium 4.1 Chloride 101 Carbon Dioxide 28 Anion Gap 10.0 BUN 12 Creatinine 0.6 Estimated GFR (MDRD) 117 Glucose 98 Calcium 9.5 Total Bilirubin 0.2 AST 21 ALT 34 Alkaline Phosphatase 59 Total Protein 7.6 Albumin 3.8 Globulin 3.8 Albumin/Globulin Ratio 1.0 Lipase 29 Serum HCG, Qual Urine Color YELLOW Urine Clarity HAZY Urine pH 6.0 Ur Specific [place] 1.010 Urine Protein NEGATIVE Urine Glucose (UA) NEGATIVE Urine Ketones NEGATIVE Urine Occult Blood MODERATE H Urine Nitrite NEGATIVE Urine Bilirubin NEGATIVE Urine Urobilinogen 0.2 (NORMAL) Ur Leukocyte Esterase SMALL H Urine RBC 6-10 H Urine WBC >25 H Ur Squamous Epith Cells FEW Squamous Urine Bacteria Moderate H Ur Microscopic Review INDICATED Urine Culture Comments INDICATED Urine HCG, Qual NEGATIVE 04/23/22 18:47 WBC RBC Hgb Hct MCV MCH MCHC RDW Plt Count MPV Neut # (Auto) Lymph # (Auto) [place] # (Auto) Eos # (Auto) Baso # (Auto) Absolute Nucleated RBC Nucleated RBC % Sodium Potassium Chloride Carbon Dioxide Anion Gap BUN Creatinine Estimated GFR (MDRD) Glucose Calcium Total Bilirubin AST ALT Alkaline Phosphatase Total Protein Albumin Globulin Albumin/Globulin Ratio Lipase Serum HCG, Qual NEGATIVE Urine Color Urine Clarity Urine pH Ur Specific [place] Urine Protein Urine Glucose (UA) Urine Ketones Urine Occult Blood Urine Nitrite Urine Bilirubin Urine Urobilinogen Ur Leukocyte Esterase Urine RBC Urine WBC Ur Squamous Epith Cells Urine Bacteria Ur Microscopic Review Urine Culture Comments Urine HCG, Qual - Rads (name of study) CT abd Radiology: Final report received (Diffuse bladder wall thickening may be secondary to underdistention or cystitis. No renal ureter calculus or hydronephrosis. No significant perinephric fat stranding. Hepatomegaly and diffuse hepatic steatosis) PD MEDICAL DECISION MAKING - ED course Complexity details: reviewed results, re-evaluated patient, considered differential, d/w patient ED course: 31-year-old female presents emergency department for evaluation of acute Right flank pain with radiation to the right lower quadrant sudden onset. She reports the pain just dropped her to the knees. She did have some associated dysuria. Her clinical exam is somewhat limited given body habitus but she was tender on the right flank. Screening labs do show a UA consistent with acute cystitis. A CT of the abdomen was completed as I was highly suspicious for renal or ureter colic but reassuringly no renal stones were seen. Patient was given a gram of ceftriaxone here in the emergency department as well as IV fluids And Zofran for nausea. On reevaluation her symptoms are better. CT did not show findings to suggest pyelonephritis. She will be started on the cefpodoxime twice daily for the next 10 days. Will have close follow-up with PCP. Departure - Departure Disposition: 01 Home, Self Care Clinical Impression: Acute cystitis Qualifiers: Hematuria presence: with hematuria Qualified Code(s): N30.01 - Acute cystitis with hematuria Condition: Stable Record reviewed to determine appropriate education?: Yes Instructions: ED UTI Cystitis Female Prescriptions: Cefdinir 300 mg PO BID #14 cap Phenazopyridine HCl [Pyridium] 200 mg PO TID PRN #6 tablet PRN Reason: dysuria Comments: Mary Carmen you are seen today in the emergency department for sudden pain on the right side of your abdomen. The CT scan did not show acute kidney stones. However your urine is consistent with an early infection. We have given you your first dose of antibiotic here in the emergency department and I have sent a prescription for medication called Cefdinir. You are to take this twice daily for the next 7 days. I also sent a prescription for Pyridium to the pharmacy. This will cause your urine to turn bright orange but will help with the pain. In general I would expect her symptoms to be getting better over the next 24 to 48 hours. If worsening, you have fevers uncontrolled vomiting then please return immediately to the ER. [facility] [place]
[2022-04-23 19:13] LABS: ALBUMIN 3.8 g/dL (3.2-5.5); BILIRUBIN,TOTAL 0.2 mg/dL (0.2-1.0); CALCIUM 9.5 mg/dL (8.5-10.3); CREATININE 0.6 mg/dL (0.4-1.0); POTASSIUM 4.1 mmol/L (3.5-5.0); TOTAL PROTEIN 7.6 g/dL (6.7-8.2)
[2022-04-23 19:20] LABS: HCG,QUALITATIVE BLOOD NEGATIVE
[2022-04-23] MEDS ORDERED: HYDROmorphone 1 MG/ML CARPUJECT IVP STA (19:39)
[2022-04-23 20:09] VITALS: BP 122/74
== END 2022-04-23 20:36 | disposition home or self-care (01) ==
LOC: ED 17:38
DX: N30.01 Acute cystitis with hematuria (principal); E11.9 Type 2 diabetes mellitus without complications; F17.200 Nicotine dependence, unspecified, uncomplicated
CPT/HCPCS: 36415; 74176; 80053; 81001; 81025; 83690; 84703; 85025; 87086; 96374; 96375; 99283; 99284; J1170; Q0162; 81003

== ENCOUNTER 2022-06-05 12:29 | Emergency (ER) | payer MEDICAID ==
[2022-06-05 14:04] LABS: HCG,QUALITATIVE BLOOD NEGATIVE
--- NOTE | 2022-06-05 15:25 | XRAY Report ---
PROCEDURE: Chest 1 View X-Ray INDICATIONS: Cough with SOA. TECHNIQUE: One view of the chest was acquired. COMPARISON: None FINDINGS: Surgical changes and devices: None. Lungs and pleura: No pleural effusions or pneumothorax. Mild diffuse interstitial prominence. Possib le patchy right upper lung zone airspace opacity. No focal consolidation. Mediastinum: Mediastinal contours appear normal. Heart size is normal. Bones and chest wall: No suspicious bony lesions. Overlying soft tissues appear unremarkable. IMPRESSION: Diffuse interstitial prominence with possible mild patchy right upper lung zone airspace opacity. Fin ding may represent an infectious/inflammatory process with possible early pneumonia. Recommend follow-up chest radiograph 4-6 weeks after treatment to document resolution of findings and /or return to baseline exam. Reviewed by: Graham Moss MD on 06/05/2022 3:23 PM PDT Approved by: Graham Moss MD on 06/05/2022 3:23 PM PDT Station ID: [id number]
--- NOTE | 2022-06-05 17:16 | ED Physician Documentation ---
History of Present Illness - Stated complaint Stated Complaint: JENA,FEMALE - Chief complaint Chief Complaint: Resp - History obtained from History obtained from: Patient - Additonal information Additional information: The patient comes to the emergency department chief complaint of dry cough. She states that is been going on for about a week. No fevers or chills. She has had a little bit of shortness of breath. She has a history of asthma and smokes both tobacco and marijuana. She denies any other complaints at this time. Review of Systems Ten Systems: 10 systems reviewed and negative Constitutional: reports: Reviewed and negative Eyes: reports: Reviewed and negative Ears: reports: Reviewed and negative Nose: reports: Reviewed and negative Throat: reports: Reviewed and negative Cardiac: reports: Reviewed and negative Respiratory: reports: Dyspnea, Cough GI: reports: Reviewed and negative : reports: Reviewed and negative Skin: reports: Reviewed and negative Musculoskeletal: reports: Reviewed and negative Neurologic: reports: Reviewed and negative Psychiatric: reports: Reviewed and negative Endocrine: reports: Reviewed and negative Immunocompromised: reports: Reviewed and negative PD PAST MEDICAL HISTORY - Past Medical History Past Medical History: Yes Cardiovascular: None Respiratory: Asthma Neuro: None Endocrine/Autoimmune: Type 2 diabetes GI: None BANKING CONSULTANT: None : None HEENT: None Psych: Depression Musculoskeletal: Fibromyalgia Derm: None - Past Surgical History Past Surgical History: Yes /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 HEENT: Tonsil/Adenoidectomy - Present Medications Home Medications: Ambulatory Orders Medication Instructions Recorded Confirmed Cefdinir 300 mg PO BID #14 cap 04/23/22 Phenazopyridine HCl [Pyridium] 200 mg PO TID PRN #6 tablet 04/23/22 levoFLOXacin [Levaquin] 500 mg PO QD #14 tablet 06/05/22 - Allergies Allergies/Adverse Reactions: Allergies Allergy/AdvReac Type Severity Reaction Status Date / Time aripiprazole [From Abilify] Allergy Unknown Verified 04/23/22 17:57 bee venom protein (honey bee) Allergy Unknown Verified 06/05/22 13:08 chlorhexidine Allergy Hives Verified 06/05/22 13:08 [From Hibiclens] codeine Allergy Hives Verified 06/05/22 13:08 Latex, Natural Rubber Allergy Unknown Verified 06/05/22 13:08 Penicillins Allergy Hives Verified 06/05/22 13:08 procaine [From Novocain] Allergy Unknown Verified 06/05/22 13:08 shellfish derived Allergy Unknown Verified 06/05/22 13:08 Sulfa (Sulfonamide Allergy Hives Verified 06/05/22 13:08 Antibiotics) - Social History Does the pt smoke?: Yes Smoking Status: Current every day smoker Does the pt drink ETOH?: No Does the pt have substance abuse?: No - Immunizations Immunizations are current?: No Immunizations: TDAP >10years/unknown - POLST Patient has POLST: No PD ED PE NORMAL - Vitals Vital signs reviewed: Yes - General General: Alert and oriented X 3, No acute distress, Well developed/nourished - HEENT HEENT: Atraumatic, PERRL, EOMI, Moist mucous membranes - Neck Neck: Supple, no meningeal sign - Cardiac Cardiac: RRR, No murmur - Respiratory Respiratory: No respiratory distress, Clear bilaterally - Derm Derm: Normal color, Warm and dry, No rash - Extremities Extremities: No deformity, No edema - Neuro Neuro: Alert and oriented X 3, regional account director 2-12 intact, Normal speech - Psych Psych: Normal mood, Normal affect Results - Vitals Vitals: Vital Signs - 24 hr 06/05/22 13:01 Temperature 37.2 C Heart Rate 104 H Respiratory 16 Rate Blood Pressure 132/77 H O2 Saturation 98 Oxygen O2 Source Room air - Labs Labs: Laboratory Tests 06/05/22 13:24 Serum HCG, Qual NEGATIVE - Rads (name of study) Chest x-ray Radiology: Final report received, EMP read indepedently, See rad report (Possible early pneumonia with interstitial prominence) PD MEDICAL DECISION MAKING - ED course Complexity details: reviewed results, re-evaluated patient, considered differential, d/w patient ED course: The patient was evaluated with chest x-ray which showed a possible early pneumonia. She was started on Levaquin for this by prescription. We have discussed the usual indications for return. Departure - Departure Disposition: 01 Home, Self Care Clinical Impression: Pneumonia Qualifiers: Pneumonia type: due to unspecified organism Laterality: right Lung location: lower lobe of lung Qualified Code(s): J18.9 - Pneumonia, unspecified organism Asthma Qualifiers: Asthma severity: mild Asthma persistence: intermittent Asthma complication type: uncomplicated Qualified Code(s): J45.20 - Mild intermittent asthma, uncomplicated Condition: Stable Instructions: ED Pneumonia Adult Prescriptions: levoFLOXacin [Levaquin] 500 mg PO QD #14 tablet Comments: Your chest x-ray shows possible early pneumonia. A prescription for antibiotics has been sent to the [facility] pharmacy in [place]. Please talk to your doctor about getting help with your smoking to prevent further complications with your asthma and your breathing in general.
[2022-06-05 17:21] VITALS: BP 144/86
== END 2022-06-05 17:20 | disposition home or self-care (01) ==
LOC: ED 12:29
DX: J18.9 Pneumonia, unspecified organism (principal); J45.20 Mild intermittent asthma, uncomplicated; F17.200 Nicotine dependence, unspecified, uncomplicated; Z20.822 Contact with and (suspected) exposure to COVID-19
CPT/HCPCS: 36415; 84703; 99283; 99284

== ENCOUNTER 2022-07-20 17:25 | Emergency (ER) | payer MEDICAID ==
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
[2022-07-20] MEDS: IPRATROPIUM/ALBUTEROL 3 ML NEB INH STA (17:51)
[2022-07-20] MEDS: ALBUTEROL NEB 2.5 MG/3 ML INH STA (17:51)
[2022-07-20] MEDS: predniSONE 20 MG TABLET PO STA (18:10)
[2022-07-20 18:39] VITALS: BP 130/90
== END 2022-07-20 18:38 | disposition home or self-care (01) ==
LOC: ED 17:25
DX: J45.901 Unspecified asthma with (acute) exacerbation (principal); E11.9 Type 2 diabetes mellitus without complications; F17.200 Nicotine dependence, unspecified, uncomplicated
CPT/HCPCS: 94640; 94664; 99283; 99284; J7512

== ENCOUNTER 2022-10-18 17:21 | Emergency (ER) | payer MEDICAID ==
[2022-10-18 18:03] LABS: BASOPHILS % (AUTO) 0.3 %; EOSINOPHILS # (AUTO) 0.2 10^3/uL (0.0-0.7); EOSINOPHILS % (AUTO) 1.3 %; HCT - HEMATOCRIT 45.5 % (37.0-47.0); HGB - HEMOGLOBIN 14.4 g/dL (12.0-16.0); LYMPHOCYTES # (AUTO) 3.1 10^3/uL (1.5-3.5); LYMPHOCYTES % (AUTO) 24.3 %; MEAN CORPUSCULAR HEMOGLOBIN 27.7 pg (27.0-31.0); MEAN CORPUSCULAR HGB CONC 31.6 g/dL (32.0-36.0); MEAN CORPUSCULAR VOLUME 87.7 fL (81.0-99.0); MEAN PLATELET VOLUME 10.9 fL (7.9-10.8); MONOCYTES # (AUTO) 0.6 10^3/uL (0.0-1.0); MONOCYTES % (AUTO) 4.8 %; NEUTROPHILS # (AUTO) 8.7 10^3/uL (1.5-6.6); NEUTROPHILS % (AUTO) 68.8 %; PLT - PLATELET COUNT 279 10^3/uL (130-450); RED BLOOD COUNT 5.19 10^6/uL (4.20-5.40); RED CELL DISTRIBUTION WIDTH 14.4 % (12.0-15.0); WHITE BLOOD COUNT 12.6 x10^3/uL (4.8-10.8)
[2022-10-18 18:14] LABS: ALBUMIN 3.7 g/dL (3.2-5.5); ALBUMIN/GLOBULIN RATIO 1.1 (1.0-2.2); BILIRUBIN,TOTAL 0.3 mg/dL (0.2-1.0); CALCIUM 9.3 mg/dL (8.5-10.3); CREATININE 0.7 mg/dL (0.4-1.0); POTASSIUM 3.9 mmol/L (3.5-5.0); TOTAL PROTEIN 7.2 g/dL (6.7-8.2)
--- NOTE | 2022-10-18 18:36 | ED Physician Documentation ---
History of Present Illness - Stated complaint Stated Complaint: FEMALE , BACK PX - Chief complaint Chief Complaint: Abd Pain - Additonal information Additional information: 32-year-old female presents emergency department for evaluation of acute urinary retention. Reports she has not been able to urinate since 11 AM yesterday morning. She did not think much of it during the day yesterday but then in the evening noted she had not urinated. She had the urge to void but was unable to produce urine. Through the course of today she is try to urinate but states no urine has come out. Patient is morbidly obese, Limiting abdominal exam. History obtained from patient No fevers, nausea or vomiting. Past surgical history is pertinent for C- sections only. She does have a history of PCOS for which she takes metformin. 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: None : None HEENT: None Psych: Depression Musculoskeletal: Fibromyalgia Derm: None - Past Surgical History Past Surgical History: Yes /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 CRANE OPERATOR: 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 HEENT: Tonsil/Adenoidectomy - Present Medications Home Medications: Ambulatory Orders Medication Instructions Recorded Confirmed Cefdinir 300 mg PO BID #14 cap 04/23/22 Phenazopyridine HCl [Pyridium] 200 mg PO TID PRN #6 tablet 04/23/22 levoFLOXacin [Levaquin] 500 mg PO QD #14 tablet 06/05/22 Albuterol 2.5 mg INH Q4H PRN #30 ml 07/20/22 predniSONE [Deltasone] 20 mg PO [id number] #21 tab 07/20/22 - Allergies Allergies/Adverse Reactions: Allergies Allergy/AdvReac Type Severity Reaction Status Date / Time aripiprazole [From Abilify] Allergy Unknown Verified 10/18/22 17:42 bee venom protein (honey bee) Allergy Unknown Verified 10/18/22 17:42 chlorhexidine Allergy Hives Verified 10/18/22 17:42 [From Hibiclens] codeine Allergy Hives Verified 10/18/22 17:42 Latex, Natural Rubber Allergy Unknown Verified 10/18/22 17:42 Penicillins Allergy Hives Verified 10/18/22 17:42 procaine [From Novocain] Allergy Unknown Verified 10/18/22 17:42 shellfish derived Allergy Unknown Verified 10/18/22 17:42 Sulfa (Sulfonamide Allergy Hives Verified 10/18/22 17:42 Antibiotics) - Social History Does the pt smoke?: Yes Smoking Status: Current every day smoker Does the pt drink ETOH?: No Does the pt have substance abuse?: No - Immunizations Immunizations are current?: No Immunizations: TDAP >10years/unknown - POLST Patient has POLST: No PD ED PE NORMAL - General General: Alert and oriented X 3, No acute distress, Well developed/nourished (Morbidly obese), Other (Appears disheveled poor hygiene dirty appearance) - HEENT HEENT: Atraumatic, Moist mucous membranes - Neck Neck: Supple, no meningeal sign, No adenopathy - Cardiac Cardiac: RRR, No murmur - Respiratory Respiratory: No respiratory distress, Clear bilaterally - Abdomen Abdomen: Normal bowel sounds, Soft. No: Non tender (Some tenderness of the lower abdomen and low back. Exam limited by body habitus) - Back Back: No CVA TTP, No spinal TTP - Derm Derm: Normal color, Warm and dry - Extremities Extremities: No deformity, No tenderness to palpate, Normal ROM s pain - Neuro Neuro: Alert and oriented X 3, instructional technologist 2-12 intact Eye Opening: Spontaneous Motor: Obeys Commands Verbal: Oriented GCS Score: 15 Results - Vitals Vitals: Vital Signs - 24 hr 10/18/22 10/18/22 10/18/22 17:39 19:01 20:18 Temperature 37.3 C 37.1 C Heart Rate 108 H 96 90 Respiratory 16 20 16 Rate Blood Pressure 158/98 H 130/65 114/83 H O2 Saturation 96 97 100 Oxygen O2 Source Room air - Labs Labs: Laboratory Tests 10/18/22 10/18/22 10/18/22 17:59 17:59 17:59 WBC 12.6 H RBC 5.19 Hgb 14.4 Hct 45.5 MCV 87.7 MCH 27.7 MCHC 31.6 L RDW 14.4 Plt Count 279 MPV 10.9 H Neut # (Auto) 8.7 H Lymph # (Auto) 3.1 [place] # (Auto) 0.6 Eos # (Auto) 0.2 Baso # (Auto) 0.0 Absolute Nucleated RBC 0.00 Nucleated RBC % 0.0 Sodium 137 Potassium 3.9 Chloride 100 L Carbon Dioxide 27 Anion Gap 10.0 BUN 14 Creatinine 0.7 Estimated GFR (MDRD) 97 Glucose 131 H Calcium 9.3 Total Bilirubin 0.3 AST 29 ALT 34 Alkaline Phosphatase 70 Total Protein 7.2 Albumin 3.7 Globulin 3.5 Albumin/Globulin Ratio 1.1 Lipase 33 Serum HCG, Qual NEGATIVE Urine Color Urine Clarity Urine pH Ur Specific [place] Urine Protein Urine Glucose (UA) Urine Ketones Urine Occult Blood Urine Nitrite Urine Bilirubin Urine Urobilinogen Ur Leukocyte Esterase Ur Microscopic Review Urine Culture Comments 10/18/22 19:41 WBC RBC Hgb Hct MCV MCH MCHC RDW Plt Count MPV Neut # (Auto) Lymph # (Auto) [place] # (Auto) Eos # (Auto) Baso # (Auto) Absolute Nucleated RBC Nucleated RBC % Sodium Potassium Chloride Carbon Dioxide Anion Gap BUN Creatinine Estimated GFR (MDRD) Glucose Calcium Total Bilirubin AST ALT Alkaline Phosphatase Total Protein Albumin Globulin Albumin/Globulin Ratio Lipase Serum HCG, Qual Urine Color YELLOW Urine Clarity CLEAR Urine pH 6.0 Ur Specific [place] 1.025 Urine Protein NEGATIVE Urine Glucose (UA) NEGATIVE Urine Ketones TRACE Urine Occult Blood NEGATIVE Urine Nitrite NEGATIVE Urine Bilirubin NEGATIVE Urine Urobilinogen 0.2 (NORMAL) Ur Leukocyte Esterase NEGATIVE Ur Microscopic Review NOT INDICATED Urine Culture Comments NOT INDICATED - Rads (name of study) CT abd Radiology: Final report received (No definite acute abdominal abnormality. No abnormal bladder distention wall thickening or discrete urinary stones. No evidence hydronephrosis or nephrolithiasis. Hepatic steatosis) PD MEDICAL DECISION MAKING - ED course Complexity details: reviewed results, re-evaluated patient, considered differential, d/w patient ED course: 32-year-old female who is morbidly obese presented to the emergency department reporting that she had nearly 36 hours without the ability to urinate. We did obtain a CBC that showed no worrisome abnormalities and her electrolytes were without acute worrisome findings. Her renal function was normal. Abdominal exam was limited secondary to body habitus though she did have some mild lower midline suprapubic pain. We did obtain a CT of the abdomen that showed no findings of urinary obstruction ultimately the patient was able to void 200 mL of urine here in the emergency department and the UA showed no findings of infection. I discussed with the patient that given her body habitus it is possible she may be urinating without the awareness of it though she denies that this is happening. At this time she is stable for discharge home with no acute findings found. Emergent return precautions otherwise discussed Departure - Departure Disposition: Home, Self Care Clinical Impression: Concern about urinary tract disease without diagnosis Condition: Stable Record reviewed to determine appropriate education?: Yes Comments: Mary Carmen you came to the emergency department today because you stated that you have been unable to urinate for about 36 hours. After little bit time here in the emergency department you did void about 200 mL urine. Showed no signs of infection. Your CBC and electrolytes were normal today without worrisome findings. We did obtain a CT of the abdomen that also did not show any acute findings such as kidney stones, swelling of the kidney or kidney infection. Your bladder appeared normal. Is not clear to me why you were unable to urinate though at this time no acute findings are found and you are being discharged home. I do recommend you follow closely with your primary care provider. Return immediately to the ER if you have worsening symptoms develop any fevers have severe abdominal pain or uncontrolled vomiting.
[2022-10-18 19:35] LABS: HCG,QUALITATIVE BLOOD NEGATIVE
[2022-10-18 19:48] LABS: BILIRUBIN,URINE NEGATIVE (NEGATIVE); CLARITY,URINE CLEAR (CLEAR); GLUCOSE, URINE (UA) NEGATIVE (NEGATIVE); KETONES,URINE (UA) TRACE mg/dL (NEGATIVE); LEUKOCYTE ESTERASE, URINE NEGATIVE (NEGATIVE); NITRITE,URINE NEGATIVE (NEGATIVE); OCCULT BLOOD,URINE NEGATIVE (NEGATIVE); PROTEIN,URINE NEGATIVE (NEGATIVE); UROBILINOGEN,URINE 0.2 (NORMAL) E.U./dL (NORMAL)
[2022-10-18 20:20] VITALS: BP 114/83
--- NOTE | 2022-10-18 20:25 | CT Report ---
PROCEDURE: ABDOMEN/PELVIS WO INDICATIONS: urinary retention TECHNIQUE: Noncontrast 5 mm thick sections acquired from the diaphragms to the symphysis. 5 mm coronal and sagi ttal reformats were then performed. For radiation dose reduction, the following was used: automated exposure control, adjustment of mA and/or kV according to patient size. COMPARISON: CT abdomen pelvis 04/23/2022. FINDINGS: Image quality: Evaluation limited by body habitus. Lung bases: Unremarkable. Heart: Heart is normal in size. ABDOMEN: Liver:There is diffuse hypoattenuation of the liver consistent with fatty infiltration. Gallbladder: Within normal limits without calcified gallstones. Biliary ducts: No biliary ductal dilatation. Pancreas: Unremarkable. Spleen: Normal in size. Adrenal Glands: No adrenal nodules. Kidneys and Ureters: No hydronephrosis. Stomach and Bowel: Stomach, small bowel loops, and colon are normal in caliber and wall thickness. N o pericecal inflammatory changes to suggest appendicitis. There is colonic diverticulosis without acu te diverticulitis. Peritoneum: No abnormal intraperitoneal fluid. No free air. Ventral Wall: There is a small fat-containing umbilical hernia. Abdominal Nodes: No retroperitoneal or mesenteric adenopathy by size criteria. Vessels: Aorta and inferior vena cava are normal in size. PELVIS: Pelvic Organs: Unremarkable. Bladder:Bladder demonstrates normal wall thickness. No definite bladder stones, with the evaluation limited by artifact due to body habitus. There is mild bladder distention. Pelvic Nodes: No enlarged lymph nodes. Miscellaneous: No inguinal hernias are seen. IMPRESSION: 1. No definite acute abdominal abnormality. No abnormal bladder distention, wall thickening, or discr ete urinary stones. 2. No evidence of hydronephrosis or nephrolithiasis. 3. Hepatic steatosis. Reviewed by: Toribio Cooney MD on 10/18/2022 8:24 PM PST Approved by: Toribio Cooney MD on 10/18/2022 8:24 PM PST Station ID: [id number]
== END 2022-10-18 20:46 | disposition home or self-care (01) ==
LOC: ED 17:21
DX: R33.9 Retention of urine, unspecified (principal); E66.9 Obesity, unspecified; F17.200 Nicotine dependence, unspecified, uncomplicated
CPT/HCPCS: 36415; 80053; 81001; 81003; 83690; 84703; 85025; 87086; 99281; 99284

== ENCOUNTER 2023-03-27 10:06 | Emergency (ER) | payer MEDICAID ==
[2023-03-27 10:50] LABS: BILIRUBIN,URINE NEGATIVE (NEGATIVE); GLUCOSE, URINE (UA) NEGATIVE (NEGATIVE); KETONES,URINE (UA) NEGATIVE (NEGATIVE); LEUKOCYTE ESTERASE, URINE TRACE (NEGATIVE); NITRITE,URINE NEGATIVE (NEGATIVE); OCCULT BLOOD,URINE NEGATIVE (NEGATIVE); PROTEIN,URINE NEGATIVE (NEGATIVE); UROBILINOGEN,URINE 0.2 (NORMAL) E.U./dL (NORMAL)
[2023-03-27 10:52] LABS: CLARITY,URINE SL. CLOUDY (CLEAR)
--- NOTE | 2023-03-27 10:54 | ED Physician Documentation ---
PD HPI NVD - Stated complaint Stated Complaint: DIZZY,DEHYDRATED,NAUSEA - Chief complaint Chief Complaint: Abd Pain - History obtained from History obtained from: Patient - History of Present Illness Timing - onset: How many weeks ago (3) Timing - duration: Weeks (3) Timing - details: Abrupt onset, Still present Associated symptoms: Abdominal pain (cramping pain, mainly LLQ area fairly consistently.), Loss of appetite, Other (has had watery diarrhea 4-5 times daily for the past 3 weeks. No prior antibiotics, unusual foods, camping, or similar.). No: Fever, Dysuria Contributing factors: No: Sick contact, Bad food, Recent antibiotics Improved by: BM (abd pain does decrease after diarrheal movement.). No: Laying still Worsened by: No: Eating, Moving, Breathing Similar symptoms before: Has not had sx before Recently seen: Not recently seen Review of Systems Constitutional: reports: Myalgias, Fatigue. denies: Fever, Chills Nose: denies: Rhinorrhea / runny nose, Congestion Throat: denies: Sore throat Respiratory: denies: Cough GI: reports: Abdominal Pain, Nausea, Diarrhea. 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 : None HEENT: None Psych: Depression Musculoskeletal: Fibromyalgia Derm: None - Past Surgical History Past Surgical History: Yes /RESEARCH ADMINISTRATOR: section HEENT: Tonsil/Adenoidectomy - Present Medications Home Medications: Ambulatory Orders Medication Instructions Recorded Confirmed Cefdinir 300 mg PO BID #14 cap 04/23/22 Phenazopyridine HCl [Pyridium] 200 mg PO TID PRN #6 tablet 04/23/22 levoFLOXacin [Levaquin] 500 mg PO QD #14 tablet 06/05/22 Albuterol 2.5 mg INH Q4H PRN #30 ml 07/20/22 predniSONE [Deltasone] 20 mg PO [id number] #21 tab 07/20/22 Azithromycin [Zithromax] 0 mg PO DAILY #6 tablet 03/27/23 Diphenoxylate/Atropine [Lomotil] 1 each PO QID PRN #12 tablet 03/27/23 Ondansetron Odt [Zofran] 4 mg TL Q6H PRN #10 tablet 03/27/23 - Allergies Allergies/Adverse Reactions: Allergies Allergy/AdvReac Type Severity Reaction Status Date / Time aripiprazole [From Abilify] Allergy Unknown Verified 10/18/22 17:42 bee venom protein (honey bee) Allergy Unknown Verified 10/18/22 17:42 chlorhexidine Allergy Hives Verified 10/18/22 17:42 [From Hibiclens] codeine Allergy Hives Verified 10/18/22 17:42 Latex, Natural Rubber Allergy Unknown Verified 10/18/22 17:42 Penicillins Allergy Hives Verified 10/18/22 17:42 procaine [From Novocain] Allergy Unknown Verified 10/18/22 17:42 shellfish derived Allergy Unknown Verified 10/18/22 17:42 Sulfa (Sulfonamide Allergy Hives Verified 10/18/22 17:42 Antibiotics) - Social History Does the pt smoke?: Yes Smoking Status: Current every day smoker Does the pt drink ETOH?: No Does the pt have substance abuse?: No - Immunizations Immunizations are current?: No Immunizations: TDAP >10years/unknown - POLST Patient has POLST: No PD ED PE NORMAL - Vitals Vital signs reviewed: Yes - General General: Alert and oriented X 3, No acute distress, Well developed/nourished - Neck Neck: Supple, no meningeal sign, No adenopathy - Cardiac Cardiac: RRR, No murmur - Respiratory Respiratory: Clear bilaterally - Abdomen Abdomen: Normal bowel sounds, Soft, Non distended, No organomegaly, Other (tender with guarding and some local percussion tender LLQ. No rebound nor referred pains. ) - Back Back: No CVA TTP - Derm Derm: Normal color, Warm and dry - Neuro Neuro: Alert and oriented X 3, No motor deficit, Normal speech Results - Vitals Vitals: Vital Signs - 24 hr 03/27/23 03/27/23 03/27/23 10:16 12:20 13:53 Temperature 36.4 C L Heart Rate 93 86 88 Respiratory 18 18 18 Rate Blood Pressure 152/100 H 121/91 H 126/89 H O2 Saturation 98 100 99 Oxygen O2 Source Room air - Labs Labs: Laboratory Tests 03/27/23 03/27/23 03/27/23 10:38 11:05 11:05 WBC 8.7 RBC 5.25 Hgb 14.8 Hct 46.2 MCV 88.0 MCH 28.2 MCHC 32.0 RDW 14.4 Plt Count 282 MPV 10.5 Neut # (Auto) 5.7 Lymph # (Auto) 2.4 Millard # (Auto) 0.4 Eos # (Auto) 0.2 Baso # (Auto) 0.0 Absolute Nucleated RBC 0.00 Nucleated RBC % 0.0 Sodium 141 Potassium 4.2 Chloride 102 Carbon Dioxide 27 Anion Gap 12.0 BUN 6 Creatinine 0.6 Estimated GFR (MDRD) 116 Glucose 126 H Calcium 9.1 Total Bilirubin 0.3 AST 28 ALT 46 Alkaline Phosphatase 77 C-Reactive Protein Total Protein 7.2 Albumin 4.0 Globulin 3.2 Albumin/Globulin Ratio 1.3 Lipase 33 Urine Color YELLOW Urine Clarity SL. CLOUDY Urine pH 6.0 Ur Specific Corona 1.020 Urine Protein NEGATIVE Urine Glucose (UA) NEGATIVE Urine Ketones NEGATIVE Urine Occult Blood NEGATIVE Urine Nitrite NEGATIVE Urine Bilirubin NEGATIVE Urine Urobilinogen 0.2 (NORMAL) Ur Leukocyte Esterase TRACE H Urine RBC None Seen Urine WBC 6-10 H Ur Squamous Epith Cells MANY Squamous H Urine Bacteria Moderate H Ur Microscopic Review INDICATED Urine Culture Comments NOT INDICATED 03/27/23 11:05 WBC RBC Hgb Hct MCV MCH MCHC RDW Plt Count MPV Neut # (Auto) Lymph # (Auto) Millard # (Auto) Eos # (Auto) Baso # (Auto) Absolute Nucleated RBC Nucleated RBC % Sodium Potassium Chloride Carbon Dioxide Anion Gap BUN Creatinine Estimated GFR (MDRD) Glucose Calcium Total Bilirubin AST ALT Alkaline Phosphatase C-Reactive Protein 3.1 H Total Protein Albumin Globulin Albumin/Globulin Ratio Lipase Urine Color Urine Clarity Urine pH Ur Specific Corona Urine Protein Urine Glucose (UA) Urine Ketones Urine Occult Blood Urine Nitrite Urine Bilirubin Urine Urobilinogen Ur Leukocyte Esterase Urine RBC Urine WBC Ur Squamous Epith Cells Urine Bacteria Ur Microscopic Review Urine Culture Comments - Rads (name of study) abd/pelvic CT Relevant Findings:: Prelim report reviewed (no acute intra-abd process. fatty liver noted. ), EMP independent interpretation of test, See rad report PD Medical Decision Making - ED course Complexity details: reviewed results (labs okay. No direct findings on CT. She of course did not have to have stool out here in ED. ), considered differential (watery diarrhea for 3 weeks. LLQ pain. Consider colitis, diverticulitis, IBD, bacterial enteritis. Will needs stool studies. ), d/w patient Reviewed Lab Results: sent home with stool collection kit from lab. Consider c.diff, shegella, etc. If positive stool studies, then direct abx for the pathogen. If no positive results, then empiric treatment with zithroamx per IDSA suggestions. Departure - Departure Disposition: Home, Self Care Clinical Impression: Diarrhea, Lower abdominal pain Condition: Stable Record reviewed to determine appropriate education?: Yes Follow-Up: ANKIT LAY MD [Primary Care Provider] - Prescriptions: Diphenoxylate/Atropine [Lomotil] 1 each PO QID PRN #12 tablet PRN Reason: Diarrhea Azithromycin [Zithromax] 0 mg PO DAILY #6 tablet Ondansetron Odt [Zofran] 4 mg TL Q6H PRN #10 tablet PRN Reason: Nausea / Vomiting Comments: Your basic blood tests are good. Your CT scan does not show any localized area of infection or other process. I presume you are pain is from intestinal irritation that is the cause of the diarrhea. At this point the best directed treatment would be to identify a particular infectious cause if possible. As such I would have you bring back a stool sample (we gave you the collection kit) to the lab at one of the out walk-in clinics or to the hospital. This will try to identify particular infectious process. This will help target which antibiotic we might need. If it does not identify particular germ, then empirically we can try azithromycin for 5 days. Meanwhile after obtaining a stool sample at home, you can use the Lomotil antidiarrhea medicine in the short-term and ondansetron can be used for nausea at any point. Tylenol if needed for pains. I sent your prescription to your preferred pharmacy, [facility]. Follow-up with your primary care as planned and sooner if worsening. We will have the culture report sent to your primary care as well. Discharge Date/Time: 03/27/23 13:54
[2023-03-27 11:07] LABS: BACTERIA,URINE Moderate /HPF (None Seen); RBC,URINE None Seen /HPF (0-5); SQUAMOUS EPITHELIAL CELL,UR MANY Squamous (<= Few)
[2023-03-27 11:10] LABS: BASOPHILS % (AUTO) 0.3 %; EOSINOPHILS # (AUTO) 0.2 10^3/uL (0.0-0.7); EOSINOPHILS % (AUTO) 1.7 %; HCT - HEMATOCRIT 46.2 % (37.0-47.0); HGB - HEMOGLOBIN 14.8 g/dL (12.0-16.0); LYMPHOCYTES # (AUTO) 2.4 10^3/uL (1.5-3.5); LYMPHOCYTES % (AUTO) 27.3 %; MEAN CORPUSCULAR HEMOGLOBIN 28.2 pg (27.0-31.0); MEAN PLATELET VOLUME 10.5 fL (7.9-10.8); MONOCYTES # (AUTO) 0.4 10^3/uL (0.0-1.0); MONOCYTES % (AUTO) 5.1 %; NEUTROPHILS # (AUTO) 5.7 10^3/uL (1.5-6.6); NEUTROPHILS % (AUTO) 65.4 %; PLT - PLATELET COUNT 282 10^3/uL (130-450); RED BLOOD COUNT 5.25 10^6/uL (4.20-5.40); RED CELL DISTRIBUTION WIDTH 14.4 % (12.0-15.0); WHITE BLOOD COUNT 8.7 x10^3/uL (4.8-10.8)
[2023-03-27 11:23] LABS: ALBUMIN/GLOBULIN RATIO 1.3 (1.0-2.2); BILIRUBIN,TOTAL 0.3 mg/dL (0.2-1.0); CALCIUM 9.1 mg/dL (8.5-10.3); CREATININE 0.6 mg/dL (0.4-1.0); POTASSIUM 4.2 mmol/L (3.5-5.0); TOTAL PROTEIN 7.2 g/dL (6.7-8.2)
[2023-03-27] MEDS ORDERED: ONDANSETRON 4 MG/2 ML VIAL IVP STA (11:23)
[2023-03-27] MEDS ORDERED: SODIUM CHLORIDE 0.9% 1,000 ML IV STA (11:23)
[2023-03-27] MEDS ORDERED: KETOROLAC 15 MG/ML VIAL IVP STA (11:23)
[2023-03-27] MEDS ORDERED: HYDROmorphone 1 MG/ML CARPUJECT IVP STA (11:24)
[2023-03-27] MEDS ORDERED: DIPHENOX/ATROPINE 2.5/0.025 MG TABLET PO STA (11:24)
[2023-03-27] MEDS ORDERED: iohexoL-300 100 ML VIAL ONE (11:46)
[2023-03-27] MEDS ORDERED: iohexoL-300 100 ML VIAL IVP ONE (12:37)
--- NOTE | 2023-03-27 12:50 | CT Report ---
PROCEDURE: ABDOMEN/PELVIS W INDICATIONS: left lower abd pain and diarrhea CONTRAST: 100ml Omnipaque 300 TECHNIQUE: After the administration of oral and intravenous contrast, 5 mm thick sections acquired from the diap hragms to the symphysis. 5 mm thick coronal and sagittal reformats were acquired. For radiation dos e reduction, the following was used: automated exposure control, adjustment of mA and/or kV accordin g to patient size. COMPARISON: CT 10/18/2022 FINDINGS: Image quality: Excellent. Lung bases and heart: Unremarkable. Liver: Hepatic steatosis. Gallbladder and biliary tree: Gallbladder sludge versus small stones. No wall thickening. No biliary dilation. Spleen: No splenomegaly. Pancreas: No pancreatic ductal dilation. Adrenals: No adrenal nodule. Kidneys and ureters: No hydronephrosis. No renal cystic lesion which requires follow up. No solid mas s. Bowel and peritoneum: No bowel distension. No pathologic free fluid. Lymph nodes: No central or retroperitoneal adenopathy. Vessels: No infrarenal aortic aneurysm. PELVIS Reproductive organs: Unremarkable. Bladder: No abnormal wall thickening, accounting for underdistension. Pelvic lymph nodes: No pelvic adenopathy by size criteria. Bones: No aggressive osseous abnormality. Other: [place] umbilical hernia containing fat. IMPRESSION: No acute abnormality. Hepatic steatosis. Reviewed by: Erik Caro on 03/27/2023 12:49 PM PDT Approved by: Erik Caro on 03/27/2023 12:49 PM PDT Station ID: [id number]
[2023-03-27 13:56] VITALS: BP 126/89
== END 2023-03-27 13:54 | disposition home or self-care (01) ==
LOC: ED 10:06
DX: R19.7 Diarrhea, unspecified (principal); R10.30 Lower abdominal pain, unspecified; E11.9 Type 2 diabetes mellitus without complications; J45.909 Unspecified asthma, uncomplicated
CPT/HCPCS: 36415; 74177; 80053; 81001; 83690; 85025; 86140; 96361; 96374; 99284; A9270; J1170; Q9967; 81003; 83630; 83993; 87086

== ENCOUNTER 2023-03-28 08:00 | Outpatient (CLI) | payer MEDICAID | END 2023-03-28 23:59 | disposition home or self-care (01) | LOC: LAB.R 08:00 | PROVIDERS: ATTEND Family Medicine | DX: R19.7 Diarrhea, unspecified (principal) | CPT/HCPCS: 83630; 83993; 87045; 87046; 87427; 87493 ==

== ENCOUNTER 2023-04-14 23:31 | Emergency (ER) | payer MEDICAID ==
[2023-04-14 23:46] VITALS: BP 145/97
[2023-04-15] MEDS ORDERED: IPRATROPIUM/ALBUTEROL 3 ML NEB INH STA (00:54)
[2023-04-15] MEDS ORDERED: DEXAMETHASONE 10 MG/ML VIAL PO STA (00:54)
[2023-04-15] MEDS ORDERED: CHERRY SYRUP 10 ML UDC PO ONE (00:54)
--- NOTE | 2023-04-15 00:58 | ED Physician Documentation ---
History of Present Illness - Stated complaint Stated Complaint: SOA/COUGH - Chief complaint Chief Complaint: Resp - History obtained from History obtained from: Patient - Additonal information Additional information: 32-year-old woman with history of asthma, high blood pressure, prediabetes, presents with cough and shortness of breath for the past week. Patient states she just finished a course of azithromycin for pneumonia. Denies fever but does states she used her nebulizer more than usual over the past couple of days. Review of Systems Constitutional: reports: Fatigue. 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 HEENT: Tonsil/Adenoidectomy - Present Medications Home Medications: Ambulatory Orders Medication Instructions Recorded Confirmed Cefdinir 300 mg PO BID #14 cap 04/23/22 Phenazopyridine HCl [Pyridium] 200 mg PO TID PRN #6 tablet 04/23/22 levoFLOXacin [Levaquin] 500 mg PO QD #14 tablet 06/05/22 Albuterol 2.5 mg INH Q4H PRN #30 ml 07/20/22 predniSONE [Deltasone] 20 mg PO [id number] #21 tab 07/20/22 Azithromycin [Zithromax] 0 mg PO DAILY #6 tablet 03/27/23 Diphenoxylate/Atropine [Lomotil] 1 each PO QID PRN #12 tablet 03/27/23 Ondansetron Odt [Zofran] 4 mg TL Q6H PRN #10 tablet 03/27/23 predniSONE [Prednisone 21-TAB dose 60 mg PO QDAC 6 Days #21 tab 04/15/23 pack] - Allergies Allergies/Adverse Reactions: Allergies Allergy/AdvReac Type Severity Reaction Status Date / Time aripiprazole [From Abilify] Allergy Unknown Verified 10/18/22 17:42 bee venom protein (honey bee) Allergy Unknown Verified 10/18/22 17:42 chlorhexidine Allergy Hives Verified 10/18/22 17:42 [From Hibiclens] codeine Allergy Hives Verified 10/18/22 17:42 Latex, Natural Rubber Allergy Unknown Verified 10/18/22 17:42 Penicillins Allergy Hives Verified 10/18/22 17:42 procaine [From Novocain] Allergy Unknown Verified 10/18/22 17:42 shellfish derived Allergy Unknown Verified 10/18/22 17:42 Sulfa (Sulfonamide Allergy Hives Verified 10/18/22 17:42 Antibiotics) - Social History Does the pt smoke?: Yes Smoking Status: Current every day smoker Does the pt drink ETOH?: No Does the pt have substance abuse?: No - Immunizations Immunizations are current?: No Immunizations: TDAP >10years/unknown - POLST Patient has POLST: No PD ED PE NORMAL - Vitals Vital signs reviewed: Yes - General General: Alert and oriented X 3, No acute distress, Other (Morbidly obese) - HEENT HEENT: Atraumatic, PERRL, EOMI, Moist mucous membranes, Pharynx benign - Neck Neck: Supple, no meningeal sign - Cardiac Cardiac: RRR - Respiratory Respiratory: No respiratory distress, Other (Bilateral expiratory wheezi ng.Speaking in full sentences) - Abdomen Abdomen: Non tender, Non distended - Derm Derm: Normal color, Warm and dry - Extremities Extremities: No deformity - Neuro Neuro: Alert and oriented X 3 Results - Vitals Vitals: Vital Signs - 24 hr 04/14/23 04/15/23 23:40 00:17 Temperature 36.5 C Heart Rate 100 Respiratory 20 Rate Blood Pressure 145/97 H O2 Saturation 96 98 Oxygen O2 Source Room air PD Medical Decision Making - ED course ED course: 32-year-old woman presents with acute asthma exacerbation. Chest x-ray showed no signs of pneumonia per my interpretation and that of outside radiologist. Nebulizer treatment provided with improvement in her breathing. Steroids given and a prescription was sent to her pharmacy. Return precautions given. Plan to follow-up with primary care provider Departure - Departure Clinical Impression: Asthma Condition: Stable Instructions: Asthma Dc Prescriptions: predniSONE [Prednisone 21-TAB dose pack] 60 mg PO QDAC 6 Days #21 tab Comments: You were seen in the emergency department for an asthma exacerbation. Please follow-up with your primary care provider this week. Return to the emergency department for new or worsening symptoms or other concerns. An electronic prescription for prednisone was sent to your pharmacy, [facility] in [place], electronically.
[2023-04-15 01:46] LABS: B. PARAPERTUSSIS- RESP PCR PAN NOT DETECTED; B. PERTUSSIS- RESP PCR PANEL NOT DETECTED; C. PNEUMONIAE- RESP PCR PANEL NOT DETECTED; CORONAVIRUS 229E-RESP PCR NOT DETECTED; CORONAVIRUS HKU1-RESP PCR NOT DETECTED; CORONAVIRUS NL63-RESP PCR NOT DETECTED; CORONAVIRUS OC43-RESP PCR NOT DETECTED; HUMAN METAPNEUMOVIRUS NOT DETECTED; INFLUENZA A- RESP PCR PANEL NOT DETECTED; INFLUENZA B - RESP PCR PANEL NOT DETECTED; M. PNEUMONIAE- RESP PCR PANEL NOT DETECTED; PARAINFLUENZA VIRUS 1 NOT DETECTED; PARAINFLUENZA VIRUS 2 NOT DETECTED; PARAINFLUENZA VIRUS 3 NOT DETECTED; PARAINFLUENZA VIRUS 4 NOT DETECTED; RHINOVIRUS/ENTEROVIRUS NOT DETECTED; RSV- RESP PCR PANEL NOT DETECTED; SARS-CoV-2 -RESP PCR PANEL NOT DETECTED
--- NOTE | 2023-04-15 02:04 | XRAY Report ---
PROCEDURE: Chest 2 View X-Ray INDICATIONS: soa, cough TECHNIQUE: 2 views of the chest were acquired. COMPARISON: Chest x-ray 06/05/2022. FINDINGS: Surgical changes and devices: None. Lungs and pleura: No pleural effusions or pneumothorax. Lungs are clear. Mediastinum: Mediastinal contours appear normal. Heart size is normal. Bones and chest wall: No suspicious bony lesions. Overlying soft tissues appear unremarkable. IMPRESSION: No acute cardiopulmonary disease. Reviewed by: Toribio Cooney MD on 04/15/2023 2:03 AM PDT Approved by: Toribio Cooney MD on 04/15/2023 2:03 AM PDT Station ID: [id number]
== END 2023-04-15 02:15 | disposition home or self-care (01) ==
LOC: ED 23:31
DX: J45.901 Unspecified asthma with (acute) exacerbation (principal); F17.200 Nicotine dependence, unspecified, uncomplicated; Z20.822 Contact with and (suspected) exposure to COVID-19
CPT/HCPCS: 71046; 87633; 94640; 99283; A9270

== ENCOUNTER 2023-11-24 11:23 | Emergency (ER) | payer MEDICAID ==
[2023-11-24 11:38] VITALS: BP 150/83; O2SAT 99
[2023-11-24] MEDS ORDERED: IPRATROPIUM/ALBUTEROL 3 ML NEB INH STA (12:03)
[2023-11-24] MEDS ORDERED: DEXAMETHASONE 10 MG/ML VIAL PO STA (12:04)
[2023-11-24] MEDS ORDERED: CHERRY SYRUP 10 ML UDC PO ONE (12:04)
--- NOTE | 2023-11-24 12:06 | ED Physician Documentation ---
PD HPI URI - Stated complaint Stated Complaint: WHEEZING,SOA - Chief complaint Chief Complaint: Resp - History obtained from History obtained from: Patient, Family - History of Present Illness Timing - onset: How many weeks ago (2) Timing duration: Weeks (2) Timing details: Gradual onset, Still present Associated symptoms: Nasal congestion, Sore throat, Productive cough, Dyspnea Improves by: Rest, Medication, MDI/nebulizer Worsened by: Activity Similar symptoms before: Diagnosis (asthma and pneumonia) Recently seen: Not recently seen - Additional information Additional information: 33-year-old asthmatic female reports beginning to have a cough 2 weeks ago which seemed to be just a minor annoyance about 1 week ago the cough became worse and she is coughing up yellow and green phlegm and having increased shortness of breath. She has been using her inhaler more frequently. This morning she coughed up some blood as well. 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 HEENT: None Psych: Depression Musculoskeletal: Fibromyalgia Derm: None - Past Surgical History Past Surgical History: Yes /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 HEENT: Tonsil/Adenoidectomy - Present Medications Home Medications: Ambulatory Orders Medication Instructions Recorded Confirmed Albuterol Sulf [Ventolin Hfa 1 - 2 puffs INH Q4HR PRN #1 each 11/24/23 Inhaler] Albuterol Sulf [Ventolin Hfa 1 puffs INH PRN PRN 11/24/23 11/24/23 Inhaler] Cefdinir 300 mg PO BID #20 cap 11/24/23 predniSONE [Deltasone] 10 mg PO ONCE #26 tablet 11/24/23 - Allergies Allergies/Adverse Reactions: Allergies Allergy/AdvReac Type Severity Reaction Status Date / Time aripiprazole [From Abilify] Allergy Unknown Verified 11/24/23 11:33 bee venom protein (honey bee) Allergy Unknown Verified 11/24/23 11:33 chlorhexidine Allergy Hives Verified 11/24/23 11:33 [From Hibiclens] codeine Allergy Hives Verified 11/24/23 11:33 Latex, Natural Rubber Allergy Unknown Verified 11/24/23 11:33 Penicillins Allergy Hives Verified 11/24/23 11:33 procaine [From Novocain] Allergy Unknown Verified 11/24/23 11:33 shellfish derived Allergy Unknown Verified 11/24/23 11:33 Sulfa (Sulfonamide Allergy Hives Verified 11/24/23 11:33 Antibiotics) - Social History Does the pt smoke?: Yes Smoking Status: Current every day smoker Does the pt drink ETOH?: No Does the pt have substance abuse?: No - Immunizations Immunizations are current?: No Immunizations: TDAP >10years/unknown - POLST Patient has POLST: No PD ED PE NORMAL - Vitals Vital signs reviewed: Yes (hypertensive ) - General General: Alert and oriented X 3, No acute distress, Well developed/nourished - HEENT HEENT: Atraumatic, PERRL, EOMI, Other (Right TM is inflamed with rounding of the umbo. The left is clear. 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 No focal consolidation.), EMP independent interpretation of test, See rad report PD Medical Decision Making - ED course Complexity details: reviewed old records, reviewed results, re-evaluated patient, considered differential, d/w patient, d/w family ED course: 33-year-old female with history of asthma comes into the Emergency Department today with a complaint of cough and shortness of breath present for 2 weeks she has been coughing up yellow and green phlegm as well as some blood. Today in the emergency room she is administered dexamethasone given a treatment with a DuoNeb and we will place her on a course of antibiotic as well as refill her inhaler and a course of prednisone.On exam today the patient does have otitis on the right side. Departure - Departure Disposition: 01 Home, Self Care Clinical Impression: Asthmatic bronchitis with acute exacerbation Qualifiers: Asthma severity: mild Asthma persistence: intermittent Qualified Code(s): J45.21 - Mild intermittent asthma with (acute) exacerbation Otitis media Qualifiers: Otitis media type: suppurative Chronicity: acute Laterality: right Recurrence: non-recurrent Spontaneous tympanic membrane rupture: without spontaneous rupture Qualified Code(s): H66.001 - Acute suppurative otitis media without spontaneous rupture of ear drum, right ear Condition: Stable Instructions: ED Bronchitis Asthmatic, ED Otitis Media Acute Adult Follow-Up: ANKIT LAY MD [Primary Care Provider] - Prescriptions: Albuterol Sulf [Ventolin Hfa Inhaler] 1 - 2 puffs INH Q4HR PRN #1 each PRN Reason: Shortness Of Air/Wheezing Cefdinir 300 mg PO BID #20 cap predniSONE [Deltasone] 10 mg PO ONCE #26 tablet Comments: Anaya today looks like you have a middle ear infection in the right middle ear and this is exacerbated your asthma. I have E scribed some cefdinir albuter ol and prednisone to the [facility] pharmacy.
[2023-11-24 12:22] LABS: HCG UR QUAL NEGATIVE
--- NOTE | 2023-11-24 12:59 | XRAY Report ---
PROCEDURE: Chest 2V INDICATIONS: cough soa TECHNIQUE: 2 views of the chest were acquired. COMPARISON: 04/15/2023. FINDINGS: Surgical changes and devices: None. Lungs and pleura: No pleural effusions or pneumothorax. Lungs are clear. Mediastinum: Mediastinal contours appear normal. Heart size is normal. Bones and chest wall: No suspicious bony lesions. Overlying soft tissues appear unremarkable. IMPRESSION: No acute cardiopulmonary process. No focal consolidation. Reviewed by: Graham Moss MD on 11/24/2023 12:58 PM PST Approved by: Graham Moss MD on 11/24/2023 12:58 PM PST Station ID: [id number]
== END 2023-11-24 13:30 | disposition home or self-care (01) ==
LOC: ED 11:23
DX: J45.21 Mild intermittent asthma with (acute) exacerbation (principal); H66.001 Acute suppurative otitis media without spontaneous rupture of ear drum, right ear; E11.9 Type 2 diabetes mellitus without complications; F17.200 Nicotine dependence, unspecified, uncomplicated
CPT/HCPCS: 71046; 81025; 94640; 94664; 99284; A9270

== ENCOUNTER 2024-01-16 17:51 | Emergency (ER) | payer MEDICAID ==
[2024-01-16 18:07] VITALS: BP 102/88; O2SAT 100
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
[2024-01-16] MEDS: predniSONE 20 MG TABLET PO STA (18:35)
[2024-01-16] MEDS: IPRATROPIUM/ALBUTEROL 3 ML NEB INH STA (18:47)
== END 2024-01-16 19:16 | disposition home or self-care (01) ==
LOC: ED 17:51
DX: J45.901 Unspecified asthma with (acute) exacerbation (principal); F17.200 Nicotine dependence, unspecified, uncomplicated; E11.9 Type 2 diabetes mellitus without complications; Z79.899 Other long term (current) drug therapy; Z91.040 Latex allergy status
CPT/HCPCS: 94640; 99283; 99284; J7512

== ENCOUNTER 2024-03-27 17:45 | Emergency (ER) | payer MEDICAID ==
[2024-03-27 17:54] VITALS: BP 144/100; O2SAT 98
[2024-03-27] MEDS: ONDANSETRON ODT 4 MG TABLET TL STA (19:15)
[2024-03-27] MEDS: oxyCODONE 5 MG TABLET PO STA (19:15)
--- NOTE | 2024-03-27 19:50 | ED Physician Documentation ---
PD HPI UPPER EXT INJURY - Stated complaint Stated Complaint: LT SHOULDER PX - Chief complaint Chief Complaint: Ext Problem - History obtained from History obtained from: Patient - History of Present Illness Location: Left Pain level max: 9 Pain level now: 9 Improved by: Rest Worsened by: Moving, Palpating Associated symptoms: Tingling. No: Weakness, Numbness, Swelling, Discolored Contributing factors: No: Anticoagulated - Additonal information Additional information: Patient is a 33-year-old female who presents to the emergency department with left shoulder pain. She states that she has a history of a rotator cuff injury in that shoulder. Injured it several years ago, has never followed up to have this formally fixed or evaluated. She states that today she was getting into a truck when she felt a pop in the left shoulder with searing pain down the arm. Better with rest, worse with movement. Has not taken anything for pain. She states she has a tingling down her arm. 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 : None HEENT: None Psych: Depression Musculoskeletal: Fibromyalgia Derm: None - Past Surgical History Past Surgical History: Yes /SODA COLUMN OPERATOR: section HEENT: Tonsil/Adenoidectomy - Present Medications Home Medications: Ambulatory Orders Medication Instructions Recorded Confirmed Albuterol Sulf [Ventolin Hfa 1 - 2 puffs INH Q4HR PRN #1 each 01/16/24 03/27/24 Inhaler] Cyclobenzaprine HCl 5 mg PO Q8HR PRN 03/27/24 03/27/24 oxyCODONE [Roxicodone] 5 - 10 mg PO Q6H PRN #20 tablet 03/27/24 MDD 6 - Allergies Allergies/Adverse Reactions: Allergies Allergy/AdvReac Type Severity Reaction Status Date / Time aripiprazole [From Abilify] Allergy Unknown Verified 03/27/24 17:48 bee venom protein (honey bee) Allergy Unknown Verified 03/27/24 17:48 chlorhexidine Allergy Hives Verified 03/27/24 17:48 [From Hibiclens] codeine Allergy Hives Verified 03/27/24 17:48 Latex, Natural Rubber Allergy Unknown Verified 03/27/24 17:48 Penicillins Allergy Hives Verified 03/27/24 17:48 procaine [From Novocain] Allergy Unknown Verified 03/27/24 17:48 shellfish derived Allergy Unknown Verified 03/27/24 17:48 Sulfa (Sulfonamide Allergy Hives Verified 03/27/24 17:48 Antibiotics) - Social History Does the pt smoke?: Yes Smoking Status: Current every day smoker Does the pt drink ETOH?: No Does the pt have substance abuse?: No - Immunizations Immunizations are current?: No Immunizations: TDAP >10years/unknown - POLST Patient has POLST: No PD ED PE NORMAL - Vitals Vital signs reviewed: Yes - General General: Alert and oriented X 3, No acute distress - HEENT HEENT: PERRL, Moist mucous membranes - Neck Neck: Supple, no meningeal sign - Cardiac Cardiac: RRR, Strong equal pulses - Respiratory Respiratory: No respiratory distress, Clear bilaterally - Derm Derm: Warm and dry - Extremities Extremities: No deformity, Other (Diffuse tenderness to palpation over the left glenohumeral joint. No deformity. Neurovascular intact including the axillary nerve.) - Neuro Neuro: Alert and oriented X 3 - Psych Psych: Normal mood, Normal affect Results - Vitals Vitals: Vital Signs - 24 hr 03/27/24 03/27/24 17:49 20:59 Temperature 36.8 C Heart Rate 100 96 Respiratory 16 Rate Blood Pressure 144/100 H O2 Saturation 98 98 Oxygen O2 Source Room air PD Medical Decision Making - ED course Complexity details: reviewed results, re-evaluated patient, considered differential, d/w patient ED course: No acute findings on x-ray. Pain well-controlled with oxycodone in the emergency department. Placed in a sling for comfort. Appears to have a reinjury of her known left rotator cuff injury. Neurovascular intact including the axillary nerve. We will have her follow-up with her doctor for further care. Will prescribe pain medication for home, encouraged gentle stretching. Patient counseled regarding signs and symptoms for which I believe and urgent re-evaluation would be necessary. Patient with good understanding of and agreement to plan and is comfortable going home at this time This document was made in part using voice recognition software. While efforts are made to proofread this document, sound alike and grammatical errors may occur. Departure - Departure Disposition: 01 Home, Self Care Clinical Impression: Rotator cuff sprain Qualifiers: Encounter type: initial encounter Laterality: left Qualified Code(s): S43.422A - Sprain of left rotator cuff capsule, initial encounter Condition: Good Instructions: Rotator Cuff Injury, ED Tendinitis Rotator Cuff Follow-Up: your,doctor next week [Other] Orthopedic Care [Provider Group] Prescriptions: oxyCODONE [Roxicodone] 5 - 10 mg PO Q6H PRN #20 tablet MDD 6 PRN Reason: pain Comments: Your x-ray does not show any acute abnormality. You can use the sling as needed at home. You may want to look into a rotator cuff brace as well, these can be found on [employer]. Please follow-up with your doctor for further care. Your prescription was sent to [facility] in [place]. I am prescribing a short course of narcotic pain medication for you. These are potentially dangerous and addictive medications that should be used carefully. These medications may constipate you. Take an yufb-vur-xsgvrml stool softener (docusate) twice daily with plenty of water while taking these medications. If you go 24 hours without a bowel movement, take uzrm-gix-wljhrnx miralax, per package instructions. Do not drink or drive while taking these medications. If you received narcotic or sedating medications while in the emergency department, do not drive for 24 hours. Store this medication in a safe, secure place and out of reach of children. It is a violation of federal law to give or sell this medication to another person or to use in a manner other than prescribed. The ED will not refill narcotic prescriptions, including prescriptions lost or stolen. To dispose of unwanted medications: 1. [facility] [address] in [place] has a medication drop box. They accept prescription medications (in pill form) Friday through Friday 9:00 a.m. to 5:00 p.m. 2. The [facility] [employer] accepts prescription medications (in pill form only) for disposal year round. Call for more information. 3. Contact the [facility] for the next [facility] sponsored prescription drug collection event. , [phone], or [phone]; Forms: PCP List Discharge Date/Time: 03/27/24 21:00
--- NOTE | 2024-03-27 20:11 | XRAY Report ---
PROCEDURE: Shoulder 2+V LT INDICATIONS: L shoulder pain, states old rotator cuff injury TECHNIQUE: 3 views of the shoulder were acquired. COMPARISON: None. FINDINGS: Bones: No fractures or dislocations. Degenerative spurring laterally at the acromion and at the acro mial clavicular joint. No suspicious bony lesions. Visualized ribs appear intact. Soft tissues: No suspicious soft tissue calcifications. The visualized lungs are within normal limi ts. IMPRESSION: No acute bony abnormality. Reviewed by: Caren Das MD on 03/27/2024 8:10 PM PDT Approved by: Caren Das MD on 03/27/2024 8:10 PM PDT Station ID: [id number]
== END 2024-03-27 21:00 | disposition home or self-care (01) ==
LOC: ED 17:45
DX: S43.422A Sprain of left rotator cuff capsule, initial encounter (principal); X58.XXXA Exposure to other specified factors, initial encounter; J45.909 Unspecified asthma, uncomplicated; F17.210 Nicotine dependence, cigarettes, uncomplicated
CPT/HCPCS: 73030; 99283; A9270; Q0162

== ENCOUNTER 2024-06-17 12:56 | Outpatient (CLI) | payer MEDICAID ==
--- NOTE | 2024-06-17 22:03 | XRAY Report ---
PROCEDURE: Ankle 3+V LT INDICATIONS: LEFT ANKLE SPRAIN TECHNIQUE: 2 views of the ankle were acquired. COMPARISON: None. FINDINGS: Bones: No fractures or dislocations. Ankle mortise is normally aligned. Prominent plantar calcaneal enthesophytes. No suspicious bony lesions. Soft tissues: Small tibiotalar joint effusion. Achilles tendon appears normal. IMPRESSION: Small tibiotalar joint effusion suggestive of sprain. No visible underlying fracture. Reviewed by: Caren Das MD on 06/17/2024 10:01 PM PDT Approved by: Caren Das MD on 06/17/2024 10:01 PM PDT Station ID: [id number]
== END 2024-06-17 12:57 | disposition home or self-care (01) ==
LOC: DI 12:56
PROVIDERS: ATTEND Emergency Medicine
DX: S93.402A Sprain of unspecified ligament of left ankle, initial encounter (principal); M25.472 Effusion, left ankle

== ENCOUNTER 2024-10-11 02:29 | Observation (INO) ==
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
[2024-10-11] MEDS: DEXAMETHASONE 10 MG/ML VIAL IVP STA (02:59)
[2024-10-11] MEDS: ALBUTEROL NEB 2.5 MG/3 ML INH STA (03:01)
[2024-10-11 03:11] LABS: BASOPHILS % (AUTO) 0.2 %; EOSINOPHILS # (AUTO) 0.4 10^3/uL (0.0-0.7); EOSINOPHILS % (AUTO) 3.4 %; HCT - HEMATOCRIT 46.4 % (37.0-47.0); HGB - HEMOGLOBIN 14.6 g/dL (12.0-16.0); LYMPHOCYTES # (AUTO) 2.7 10^3/uL (1.5-3.5); MEAN CORPUSCULAR HEMOGLOBIN 28.7 pg (27.0-31.0); MEAN CORPUSCULAR HGB CONC 31.5 g/dL (32.0-36.0); MEAN CORPUSCULAR VOLUME 91.3 fL (81.0-99.0); MEAN PLATELET VOLUME 11.1 fL (7.9-10.8); MONOCYTES # (AUTO) 0.7 10^3/uL (0.0-1.0); MONOCYTES % (AUTO) 5.4 %; NEUTROPHILS # (AUTO) 8.4 10^3/uL (1.5-6.6); NEUTROPHILS % (AUTO) 68.6 %; PLT - PLATELET COUNT 265 10^3/uL (130-450); RED BLOOD COUNT 5.08 10^6/uL (4.20-5.40); RED CELL DISTRIBUTION WIDTH 14.1 % (12.0-15.0); WHITE BLOOD COUNT 12.3 x10^3/uL (4.8-10.8)
[2024-10-11 03:27] LABS: CALCIUM 9.4 mg/dL (8.5-10.3); CREATININE 0.7 mg/dL (0.6-1.3); POTASSIUM 3.7 mmol/L (3.5-4.5)
[2024-10-11 04:13] LABS: B. PARAPERTUSSIS- RESP PCR PAN NOT DETECTED; B. PERTUSSIS- RESP PCR PANEL NOT DETECTED; C. PNEUMONIAE- RESP PCR PANEL NOT DETECTED; CORONAVIRUS 229E-RESP PCR NOT DETECTED; CORONAVIRUS HKU1-RESP PCR NOT DETECTED; CORONAVIRUS NL63-RESP PCR NOT DETECTED; CORONAVIRUS OC43-RESP PCR NOT DETECTED; HUMAN METAPNEUMOVIRUS NOT DETECTED; INFLUENZA A- RESP PCR PANEL NOT DETECTED; INFLUENZA B - RESP PCR PANEL NOT DETECTED; M. PNEUMONIAE- RESP PCR PANEL NOT DETECTED; PARAINFLUENZA VIRUS 1 NOT DETECTED; PARAINFLUENZA VIRUS 2 NOT DETECTED; PARAINFLUENZA VIRUS 3 NOT DETECTED; PARAINFLUENZA VIRUS 4 NOT DETECTED; RHINOVIRUS/ENTEROVIRUS DETECTED; RSV- RESP PCR PANEL NOT DETECTED; SARS-CoV-2 -RESP PCR PANEL NOT DETECTED
[2024-10-11] MEDS: OLANZapine 10 MG VIAL IM STA (04:28)
[2024-10-11] MEDS ORDERED: ONDANSETRON ODT 4 MG TABLET TL PRN (05:39)
[2024-10-11] MEDS ORDERED: ALBUTEROL NEB 2.5 MG/3 ML INH PRN (05:44)
--- NOTE | 2024-10-11 05:54 | HISTORY & PHYSICAL EXAMINATION ---
Chief Complaint Chief Complaint Chief Complaint: Shortness of breath History of Present Illness History Obtained From Records Reviewed: Yes History obtained from: Pt, staff, chart Exam Limitations: Virtual exam History of Present Illness HPI Comment/Other: H&P was conducted via video remotely, using [employer]. [place] is in [place] Physician is in [place]. No one is at bedside. 34 yo F with PMH of Asthma/COPD, KARINA, Tobacco use, DM type 2, Depression, PTSD, PCOS, Obesity presented to the ER via EMS with c/o 3 day h/o SOB, Fever, congestion. Pt has had Asthma since about age 2. She walks her dog/exercises regularly w/o need for inhaler. She has asthma symptoms 1-2x/month d/t URI viral symptoms and from allergies, especially in the Spring. She uses steroid inhaler, rescue inhaler and also has Duonebs for PRN use. She has never been hospitalized for Asthma before; no h/o intubation for asthma. Pt has had no known contact with any sick persons. 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 Pt began to have URI symptoms 3-4 days ago: chest congestion, cough with green sputum, F/C with measured temp up to 104.4F, coryza, sore throat, shortness of breath, fatigue, myalgias. She called 911 today for worsened Shortness of breath. EMS gave her nebulizers and O2 enroute. In the ER, BP 160/96, HR 124, pOx 90% RA-93% 2L NC O2, WBC 12.3, Glc 144, LA 2.3, Viral Resp panel: +Rhinovirus CXR: Perihilar Bronchitis Pt was given Albuterol inh, Decadron 10 mg IV, Zyprexa 5 mg IM in the ER. ER Physician reports continued diffuse wheezing. Review of Systems Status of ROS: 10 or more systems reviewed and unremarkable except as noted in history and below [facility] Social History Social History (Updated 10/11/24 @ 02:45 by Shelly Blake, RNC) Smoking Status: Current every day smoker Relationship: Physical Activity: Walking Level: Independent Do you feel safe in your home environment?: Yes Suffered physical, verbal, emotional, or financial abuse?: No History of Abuse: Yes ETOH Use: None Substance Use: denies use POLST Patient has POLST: No Meds/Allgy Home Medications Ambulatory Orders Medication Instructions Recorded Confirmed albuterol sulfate 90 mcg/actuation 1 - 2 puff inhalation Q4HR PRN 01/16/24 10/11/24 aerosol inhaler (Ventolin HFA) Shortness Of Air/Wheezing #1 ea insulin glargine 100 unit/mL (3 unit subcut 10/11/24 mL) subcutaneous pen (Basaglar KwikPen U-100 Insulin) insulin syringe-needle U-100 1 mL 10/11/24 10/11/24 31 gauge x 5/16" (Sure Comfort Insulin Syringe) lamotrigine 25 mg tablet mg 10/11/24 metformin 500 mg tablet mg 10/11/24 prazosin 2 mg capsule mg 10/11/24 topiramate 25 mg tablet mg 10/11/24 Allergies Allergies Allergy/AdvReac Type Severity Reaction Status Date / Time aripiprazole (From Abilify) Allergy Unknown Verified 10/11/24 02:46 bee venom protein (honey bee) Allergy Unknown Verified 10/11/24 02:46 chlorhexidine (From Allergy Hives Verified 10/11/24 02:46 Hibiclens) codeine Allergy Hives Verified 10/11/24 02:46 Latex, Natural Rubber Allergy Unknown Verified 10/11/24 02:46 Penicillins Allergy Hives Verified 10/11/24 02:46 procaine (From Novocain) Allergy Unknown Verified 10/11/24 02:46 shellfish derived Allergy Unknown Verified 10/11/24 02:46 Sulfa (Sulfonamide Allergy Hives Verified 10/11/24 02:46 Antibiotics) Exam Constitutional normal general appearance mild respiratory distress, tachypneic HENMT normocephalic Eyes EOMs intact bilaterally and no scleral icterus Respiratory cart stethoscope not working; per ER Provider: breath sounds equal bilaterally, auscultation abnormal (diminished breath sound), wheezing noted (expiratory wheezes) and (inspiratory wheezes) and no use of accessory muscles Cardiovascular cart stethoscope not working; per ER Provider: heart rate abnormal (tachycardic), regular rhythm noted Gastrointestinal per ER Provider: non-distended, NT, Soft Extremities per ER Provider: moves all extrem, no edema Neurology A+Ox3, normal speech, cooperative; per ER Provider: NFD Conclusion/Plan Problem List (1) Asthma exacerbation: Plan: Asthma Exacerbation Rhinovirus + Fever Cough Shortness of breath Asthma/COPD KARINA Tobacco use Tachycardia Leukocytosis Lactic Acidosis -HR 124, pOx 90% RA-93% 2L NC O2, WBC 12.3, LA 2.3, Viral Resp panel: +Rhinovirus -CXR: Perihilar Bronchitis -pt received Duoneb enroute to ER -Pt was given Albuterol inh x 2, Decadron 10 mg IV, Zyprexa 5 mg IM in the ER. -ER Physician reports continued diffuse wheezing. -admit to Obs/Med Tele -O2 support PRN -Duonebs PRN -steroid MDI -SoluMedrol 40 mg IV daily -recheck LA and WBC in AM -tobacco cessation counseling DM type 2 -Glc 144 -accuchecks, SS Insulin, Hypoglycemic protocol -hold home medications: Metformin -alert when home medication Insulin dose known -check Hgba1c Elevated BP -BP 160/96 -Hydralazine PRN Depression PTSD -continue home medications: Lamictal, Prazosin, Topamax once doses are known Obesity -complicates care VTE Prophylaxis: Lovenox Code Status: Full Code ~Kristal Tan MD Hospitalist Qualifiers: Asthma severity: moderate Asthma persistence: persistent Qualified Code(s): J45.41 - Moderate persistent asthma with (acute) exacerbation Lab Results Lab results reviewed: Yes 10/11/24 02:55 10/11/24 02:55
[2024-10-11] MEDS: ONDANSETRON 4 MG/2 ML VIAL IVP PRN (06:05)
[2024-10-11] MEDS ORDERED: hydrALAZINE 10 MG TABLET PO PRN (06:25)
[2024-10-11] MEDS: BUDESONIDE 0.5 MG/2 ML NEB INH SCH (07:41)
[2024-10-11] MEDS: IPRATROPIUM/ALBUTEROL 3 ML NEB INH PRN (07:41)
--- NOTE | 2024-10-11 08:12 | XRAY Report ---
PROCEDURE: XR Chest 2V INDICATIONS: cough, fever TECHNIQUE: 2 views of the chest were acquired. COMPARISON: None. FINDINGS: Surgical changes and devices: None. Lungs and pleura: No pleural effusions or pneumothorax. Mild peribronchial wall thickening. Wall th ickening. Mediastinum: Mediastinal contours appear normal. Heart size is normal. Bones and chest wall: No suspicious bony lesions. Overlying soft tissues appear unremarkable. IMPRESSION: Mild peribronchial wall thickening mild peribronchial wall thickening suggestive of bronchitis sugges tive of bronchitis. . The above findings are concordant with preliminary report. Reviewed by: Deborah Snyder MD on 10/11/2024 8:11 AM PST Approved by: Deborah Snyder MD on 10/11/2024 8:11 AM PST Station ID: [id number]
[2024-10-11] MEDS ORDERED: MAGNESIUM SULFATE 2 GM/50 ML BAG IV STA (08:17)
[2024-10-11] MEDS: INSULIN LISPRO 300 UNIT/3 ML PEN SUBQ SCH (08:18)
[2024-10-11] MEDS: ENOXAPARIN 40 MG/0.4 ML SYRINGE SUBQ SCH (08:19)
[2024-10-11] MEDS: MAGNESIUM SULFATE 2 GRAM 2 GM/50 ML BAG IV ONE (08:28)
[2024-10-11] MEDS: methylPREDNISolone SUCCINATE 40 MG/ML VIAL IVP SCH ×2 (08:28→14:25)
[2024-10-11 08:43] LABS: BASOPHILS % (AUTO) 0.2 %; EOSINOPHILS % (AUTO) 0.2 %; HCT - HEMATOCRIT 45.5 % (37.0-47.0); HGB - HEMOGLOBIN 14.8 g/dL (12.0-16.0); LYMPHOCYTES # (AUTO) 0.9 10^3/uL (1.5-3.5); LYMPHOCYTES % (AUTO) 6.8 %; MEAN CORPUSCULAR HEMOGLOBIN 28.8 pg (27.0-31.0); MEAN CORPUSCULAR HGB CONC 32.5 g/dL (32.0-36.0); MEAN CORPUSCULAR VOLUME 88.5 fL (81.0-99.0); MEAN PLATELET VOLUME 11.1 fL (7.9-10.8); MONOCYTES # (AUTO) 0.2 10^3/uL (0.0-1.0); MONOCYTES % (AUTO) 1.2 %; NEUTROPHILS # (AUTO) 11.9 10^3/uL (1.5-6.6); NEUTROPHILS % (AUTO) 91.3 %; PLT - PLATELET COUNT 288 10^3/uL (130-450); RED BLOOD COUNT 5.14 10^6/uL (4.20-5.40); RED CELL DISTRIBUTION WIDTH 14.3 % (12.0-15.0)
[2024-10-11 08:55] LABS: CALCIUM 9.7 mg/dL (8.5-10.3); CREATININE 0.7 mg/dL (0.6-1.3); MAGNESIUM 1.8 mg/dL (1.7-2.3); POTASSIUM 4.2 mmol/L (3.5-4.5)
[2024-10-11] MEDS: SODIUM CHLORIDE 0.9% 500 ML IV ONE (10:01)
[2024-10-11] MEDS: AZITHROMYCIN INJ 500 MG in SODIUM CHLORIDE 0.9% 250 ML IV SCH (10:02)
--- NOTE | 2024-10-11 13:50 | PHARMACY PROGRESS NOTE ---
Best Possible Medication History Admit Date and Time: 10/11/24 0539 Home Medications Medication Instructions Recorded Confirmed Type cyanocobalamin (vitamin B-12) 2,000 mcg PO DAILY 10/11/24 10/11/24 History 1,000 mcg tablet (Vitamin B-12) insulin glargine 100 unit/mL (3 20 unit subcut BID 10/11/24 10/11/24 History mL) subcutaneous pen (Basaglar KwikPen U-100 Insulin) insulin syringe-needle U-100 1 mL 10/11/24 10/11/24 History 31 gauge x 5/16" (Sure Comfort Insulin Syringe) lamotrigine 25 mg tablet 62.5 mg PO DAILY 10/11/24 10/11/24 History metformin 500 mg tablet 1,000 mg PO QDBREAKFAST 10/11/24 10/11/24 History metformin 500 mg tablet 500 mg PO QDDINNER 10/11/24 10/11/24 History prazosin 2 mg capsule 2 mg PO HS 10/11/24 10/11/24 History topiramate 25 mg tablet 25 mg PO HS 10/11/24 10/11/24 History Processed by: Pharmacy Medications reviewed in ED?: No Medication History completed: Yes Patient Interview: Completed (patient states she is out of all inhalers. She also states that she is taking the long acting insulin, but has not been taking any short acting insulin for the past 2 months due to not having a glucometer) Secondary Source(s): Insurance records [facility] Statement: As the person ultimately responsible for medication therapy, providers are able to order a medication from an existing home medication list in [facility] via the "Reconcile Routine" prior to Confirmation of that medication by business support professional. Such practice is discouraged except when the physician, in their clinical judgment, deems that a medical need exists for a medication without regard to previous use.
[2024-10-11 15:36] LABS: ESTIMATED AVERAGE GLUCOSE 131 mg/dL (70-100); HEMOGLOBIN A1c% 6.2 % (4.27-6.07)
[2024-10-11] MEDS: PRAZOSIN 1 MG CAPSULE PO SCH (21:17)
[2024-10-11] MEDS: TOPIRAMATE 25 MG TABLET PO SCH (21:17)
[2024-10-11] MEDS: INSULIN GLARGINE-YFGN 300 UNIT/3 ML PEN SUBQ SCH (21:20)
[2024-10-11 22:10] LABS: HCG UR QUAL NEGATIVE
[2024-10-12 05:31] LABS: BASOPHILS % (AUTO) 0.2 %; EOSINOPHILS % (AUTO) 0.1 %; HCT - HEMATOCRIT 40.4 % (37.0-47.0); LYMPHOCYTES # (AUTO) 2.4 10^3/uL (1.5-3.5); MEAN CORPUSCULAR HEMOGLOBIN 28.9 pg (27.0-31.0); MEAN CORPUSCULAR HGB CONC 32.2 g/dL (32.0-36.0); MEAN CORPUSCULAR VOLUME 89.8 fL (81.0-99.0); MEAN PLATELET VOLUME 11.2 fL (7.9-10.8); MONOCYTES % (AUTO) 6.5 %; NEUTROPHILS # (AUTO) 12.3 10^3/uL (1.5-6.6); NEUTROPHILS % (AUTO) 77.6 %; PLT - PLATELET COUNT 296 10^3/uL (130-450); RED CELL DISTRIBUTION WIDTH 14.5 % (12.0-15.0); WHITE BLOOD COUNT 15.9 x10^3/uL (4.8-10.8)
[2024-10-12 05:48] LABS: CALCIUM 9.2 mg/dL (8.5-10.3); CREATININE 0.6 mg/dL (0.6-1.3); MAGNESIUM 2.1 mg/dL (1.7-2.3); POTASSIUM 4.2 mmol/L (3.5-4.5)
[2024-10-12] MEDS: lamoTRIgine 25 MG TABLET PO SCH (08:13)
[2024-10-12] MEDS: CYANOCOBALAMIN 500 MCG TABLET PO SCH (08:13)
[2024-10-12] MEDS: KETOROLAC 15 MG/ML VIAL IVP PRN (08:59)
--- NOTE | 2024-10-12 13:45 | PROVIDER PROGRESS NOTE ---
Subjective Prog Note Date Prog Note Date: 10/12/24 Prog Note Time: 08:15 Subjective Subjective: Has not been able to ambulate to the bathroom secondary to shortness of breath. feels a little better, but improvement is slow. Current Medications Current Medications Current Medications: Current Medications Generic Name Dose Route Start Last Admin Trade Name Freq PRN Reason Stop Dose Admin Albuterol/Ipratropium 3 ml 10/11/24 05:48 10/11/24 20:30 Ipratropium/Albuterol 3 Ml Neb INH 3 ml Q4HR PRN Administration Wheezing Budesonide 0.5 mg 10/11/24 07:00 10/12/24 08:57 Budesonide 0.5 Mg/2 Ml Neb INH 0.5 mg RTBID SARI Administration Cyanocobalamin 2,000 mcg 10/12/24 09:00 10/12/24 08:13 Cyanocobalamin 500 Mcg Tablet PO 2,000 mcg DAILY SARI Administration Enoxaparin Sodium 40 mg 10/11/24 09:00 10/12/24 08:13 Enoxaparin 40 Mg/0.4 Ml Syringe SUBQ 40 mg DAILY SARI Administration Hydralazine HCl 10 mg 10/11/24 06:25 Hydralazine 10 Mg Tablet PO Q8H PRN SBP> or= 160 OR DBP> or= 110 Azithromycin 500 mg/ Sodium 250 mls @ 250 mls/hr 10/11/24 10:00 10/12/24 09:15 Chloride IV 10/13/24 09:59 Infused DAILY SARI Infusion Insulin Glargine-yfgn 20 unit 10/11/24 21:00 10/11/24 21:20 Insulin Glargine-Yfgn 300 Unit/3 Ml Pen SUBQ 20 unit HS SARI Administration Insulin Human Lispro 1 - 9 unit 10/11/24 08:00 10/12/24 11:54 Insulin Lispro 300 Unit/3 Ml Pen SUBQ 1 unit 0800,1200,1700,2100 SARI Administration Protocol Ketorolac Tromethamine 15 mg 10/12/24 08:26 10/12/24 08:59 Ketorolac 15 Mg/Ml Vial IVP 10/17/24 08:25 15 mg Q6HR PRN Administration Severe Pain (Level 7-10) Lamotrigine 62.5 mg 10/12/24 09:00 10/12/24 08:13 Lamotrigine 25 Mg Tablet PO 62.5 mg DAILY SARI Administration Methylprednisolone 40 mg 10/11/24 14:00 10/12/24 06:44 Methylprednisolone Succinate 40 Mg/Ml Vial IVP 40 mg TID SARI Administration Ondansetron HCl 4 mg 10/11/24 05:39 Ondansetron Odt 4 Mg Tablet TL Q6HR PRN Nausea / Vomiting Ondansetron HCl 4 mg 10/11/24 05:39 10/11/24 06:05 Ondansetron 4 Mg/2 Ml Vial IVP 4 mg Q6HR PRN Administration Nausea / Vomiting Prazosin HCl 2 mg 10/11/24 21:00 10/11/24 21:17 Prazosin 1 Mg Capsule PO 2 mg HS SARI Administration Topiramate 25 mg 10/11/24 21:00 10/11/24 21:17 Topiramate 25 Mg Tablet PO 25 mg HS SARI Administration Objective Vital Signs/Intake & Output Vital Signs: Vital Signs x48h Temp Pulse Pulse Resp BP Pulse Ox O2 Flow Rate 10/12/24 11:26 36.6 C 91 H 18 110/72 94 10/12/24 08:59 94 H 16 10/12/24 07:40 36.5 C 87 20 132/79 H 95 2.5 Intake & Output: Intake & Output 10/10/24 10/11/24 10/12/24 10/13/24 05:59 05:59 05:59 05:59 Intake Total 2790 / 2790 3357 / 3357 Output Total 400 / 400 3100 / 3100 Balance 2390 / 2390 257 / 257 Weight (kg) 165.6 kg Objective General Appearance: positive No acute distress and Alert Eyes Bilateral: positive Normal inspection ENT: positive ENT inspection nml Neck: positive Nml inspection Respiratory: positive Chest non-tender, No respiratory distress, Wheezes and Rhonchi Cardiovascular: positive Tachycardia (mild tachycardia) Abdomen: positive Non-tender and No distention Skin: positive Color nml and No rash Extremities: positive Non-tender and No pedal edema Neurologic/Psychiatric: positive Oriented x3 and CN's nml (2-12) Lab Results 10/12/24 05:24 10/12/24 05:24 Other Labs: Lab Results x24hrs 10/12/24 10/12/24 10/12/24 Range/Units 11:20 07:37 05:24 WBC 15.9 H (4.8-10.8) x10^3/uL RBC 4.50 (4.20-5.40) 10^6/uL Hgb 13.0 (12.0-16.0) g/dL Hct 40.4 (37.0-47.0) % MCV 89.8 (81.0-99.0) fL MCH 28.9 (27.0-31.0) pg MCHC 32.2 (32.0-36.0) g/dL RDW 14.5 (12.0-15.0) % Plt Count 296 (130-450) 10^3/uL MPV 11.2 H (7.9-10.8) fL Neut # (Auto) 12.3 H (1.5-6.6) 10^3/uL Lymph # (Auto) 2.4 (1.5-3.5) 10^3/uL Barren # (Auto) 1.0 (0.0-1.0) 10^3/uL Eos # (Auto) 0.0 (0.0-0.7) 10^3/uL Baso # (Auto) 0.0 (0.0-0.1) 10^3/uL Absolute Nucleated RBC 0.00 x10^3/uL Nucleated RBC % 0.0 /100WBC Sodium 138 (135-145) mmol/L Potassium 4.2 (3.5-4.5) mmol/L Chloride 105 (101-111) mmol/L Carbon Dioxide 27 (21-32) mmol/L Anion Gap 6.0 (6-13) BUN 11 (6-20) mg/dL Creatinine 0.6 (0.6-1.3) mg/dL Estimated GFR (MDRD) 114 (>89) Glucose 139 H (74-104) mg/dL POC Whole Bld Glucose 166 163 (70-100) mg/dL Estimat Average Glucose (70-100) mg/dL Hemoglobin A1c % (4.27-6.07) % Calcium 9.2 (8.5-10.3) mg/dL Magnesium 2.1 (1.7-2.3) mg/dL Vitamin B12 308 (180-914) pg/mL Urine HCG, Qual 10/11/24 10/11/24 10/11/24 Range/Units 21:55 20:36 16:45 WBC (4.8-10.8) x10^3/uL RBC (4.20-5.40) 10^6/uL Hgb (12.0-16.0) g/dL Hct (37.0-47.0) % MCV (81.0-99.0) fL MCH (27.0-31.0) pg MCHC (32.0-36.0) g/dL RDW (12.0-15.0) % Plt Count (130-450) 10^3/uL MPV (7.9-10.8) fL Neut # (Auto) (1.5-6.6) 10^3/uL Lymph # (Auto) (1.5-3.5) 10^3/uL Barren # (Auto) (0.0-1.0) 10^3/uL Eos # (Auto) (0.0-0.7) 10^3/uL Baso # (Auto) (0.0-0.1) 10^3/uL Absolute Nucleated RBC x10^3/uL Nucleated RBC % /100WBC Sodium (135-145) mmol/L Potassium (3.5-4.5) mmol/L Chloride (101-111) mmol/L Carbon Dioxide (21-32) mmol/L Anion Gap (6-13) BUN (6-20) mg/dL Creatinine (0.6-1.3) mg/dL Estimated GFR (MDRD) (>89) Glucose (74-104) mg/dL POC Whole Bld Glucose 186 166 (70-100) mg/dL Estimat Average Glucose (70-100) mg/dL Hemoglobin A1c % (4.27-6.07) % Calcium (8.5-10.3) mg/dL Magnesium (1.7-2.3) mg/dL Vitamin B12 (180-914) pg/mL Urine HCG, Qual NEGATIVE 10/11/24 Range/Units 08:33 WBC (4.8-10.8) x10^3/uL RBC (4.20-5.40) 10^6/uL Hgb (12.0-16.0) g/dL Hct (37.0-47.0) % MCV (81.0-99.0) fL MCH (27.0-31.0) pg MCHC (32.0-36.0) g/dL RDW (12.0-15.0) % Plt Count (130-450) 10^3/uL MPV (7.9-10.8) fL Neut # (Auto) (1.5-6.6) 10^3/uL Lymph # (Auto) (1.5-3.5) 10^3/uL Barren # (Auto) (0.0-1.0) 10^3/uL Eos # (Auto) (0.0-0.7) 10^3/uL Baso # (Auto) (0.0-0.1) 10^3/uL Absolute Nucleated RBC x10^3/uL Nucleated RBC % /100WBC Sodium (135-145) mmol/L Potassium (3.5-4.5) mmol/L Chloride (101-111) mmol/L Carbon Dioxide (21-32) mmol/L Anion Gap (6-13) BUN (6-20) mg/dL Creatinine (0.6-1.3) mg/dL Estimated GFR (MDRD) (>89) Glucose (74-104) mg/dL POC Whole Bld Glucose (70-100) mg/dL Estimat Average Glucose 131 H (70-100) mg/dL Hemoglobin A1c % 6.2 H (4.27-6.07) % Calcium (8.5-10.3) mg/dL Magnesium (1.7-2.3) mg/dL Vitamin B12 (180-914) pg/mL Urine HCG, Qual Assessment/Plan Problem List (1) Acute hypoxic respiratory failure: Impression: Admitting provider documents SpO2 of 90% on room air 93% on nasal cannula. During the course of today she has weaned off of oxygen and onto room air. I will order an oxygen desaturation test in the morning. If she is able to pass this she can likely go home. If she is unable to pass it we will have to consider discharging to home on oxygen for at least a brief time. With primary care follow-up. (2) Asthma exacerbation: Impression: Asthma exacerbation. She has been a non-smoker for 4 months now. She states that she uses flavored vapes without any THC or nicotine. She is not using any nicotine products she uses THC edibles she does not smoke anything aside from the flavored vapes. I discussed with her that these may not be the best for her pulmonary health. Her home regimen for asthma consists only of albuterol. She has been somewhat noncompliant with primary care follow-up. Qualifiers: Asthma persistence: persistent Asthma severity: moderate Qualified Code(s): J45.41 - Moderate persistent asthma with (acute) exacerbation (3) Acute bronchitis: Impression: Wheezes and rhonchi on exam. Fever fatigue. Positive rhinovirus on viral panel. Chest x-ray shows mild peribronchial wall thickening a suggestive of bronchitis. I am treating her with azithromycin for anti-inflammatory effects as well as steroids. She has been treated with albuterol Atrovent nebulizer treatments and Pulmicort nebulizer treatments in addition to IV steroids. 2 Laboratory Tests 10/11/24 10/11/24 10/12/24 02:55 08:33 05:24 WBC 12.3 H 13.0 H 15.9 H White blood cell count is increasing. Could be related to steroid use. I will check CBC in the AM. She has not run any fever since admission. (4) Diabetes mellitus: Impression: Has been noncompliant with primary care follow-up. Home medications include metformin 1000 mg in the morning and 500 mg in the evening. She states this is for her PCOS she is also on glargine insulin 20 units twice daily at home. I have placed her on basal insulin here 10 units of glargine at at bedtime with sliding scale. I obtain hemoglobin A1c as this had not been done in quite some time. It was 6.2%. This indicates reasonably good control of her diabetes. She does not check her blood sugars at home. We will recommend educator senior clinical referral on discharge. She will need a prescription for a glucometer on discharge. (5) Class 3 severe obesity with body mass index (BMI) of 45.0 to 49.9 in adult: Impression: Patient with elevated BMI. I do not have an outpatient record of her weights. (6) Tobacco abuse disorder: Impression: Quit smoking 4 months ago. She states that she vapes flavored things does not vape nicotine does not vape THC. She is not using any tobacco products at this time. I have spent 40 minutes in the care of this patient today. This includes time [id number], review and ordering of diagnostic imaging and laboratory studies.. Monitoring the patient's signs symptoms, evaluation of medication effectiveness and patient's response to treatment.
[2024-10-12] MEDS: polyethylene glycoL 3350 17 GM PACKET PO PRN (18:22)
[2024-10-13 06:16] LABS: BASOPHILS % (AUTO) 0.1 %; HCT - HEMATOCRIT 41.7 % (37.0-47.0); HGB - HEMOGLOBIN 13.3 g/dL (12.0-16.0); LYMPHOCYTES # (AUTO) 2.3 10^3/uL (1.5-3.5); LYMPHOCYTES % (AUTO) 14.7 %; MEAN CORPUSCULAR HEMOGLOBIN 28.9 pg (27.0-31.0); MEAN CORPUSCULAR HGB CONC 31.9 g/dL (32.0-36.0); MEAN CORPUSCULAR VOLUME 90.5 fL (81.0-99.0); MEAN PLATELET VOLUME 11.5 fL (7.9-10.8); MONOCYTES # (AUTO) 0.7 10^3/uL (0.0-1.0); MONOCYTES % (AUTO) 4.3 %; NEUTROPHILS # (AUTO) 12.6 10^3/uL (1.5-6.6); NEUTROPHILS % (AUTO) 80.2 %; PLT - PLATELET COUNT 321 10^3/uL (130-450); RED BLOOD COUNT 4.61 10^6/uL (4.20-5.40); RED CELL DISTRIBUTION WIDTH 14.4 % (12.0-15.0); WHITE BLOOD COUNT 15.7 x10^3/uL (4.8-10.8)
[2024-10-13 06:28] LABS: CALCIUM 9.4 mg/dL (8.5-10.3); CREATININE 0.6 mg/dL (0.6-1.3); MAGNESIUM 2.3 mg/dL (1.7-2.3); POTASSIUM 4.2 mmol/L (3.5-4.5)
[2024-10-13] MEDS: guaiFENesin 600 MG TABLET PO SCH (08:12)
--- NOTE | 2024-10-13 12:02 | PROVIDER PROGRESS NOTE ---
Subjective Prog Note Date Prog Note Date: 10/13/24 Subjective Pt reports feeling: Improved Current Medications Current Medications Current Medications: Current Medications Generic Name Dose Route Start Last Admin Trade Name Freq PRN Reason Stop Dose Admin Albuterol/Ipratropium 3 ml 10/11/24 05:48 10/13/24 11:04 Ipratropium/Albuterol 3 Ml Neb INH 3 ml Q4HR PRN Administration Wheezing Budesonide 0.5 mg 10/11/24 07:00 10/13/24 07:31 Budesonide 0.5 Mg/2 Ml Neb INH 0.5 mg RTBID SARI Administration Cyanocobalamin 2,000 mcg 10/12/24 09:00 10/13/24 08:12 Cyanocobalamin 500 Mcg Tablet PO 2,000 mcg DAILY SARI Administration Enoxaparin Sodium 40 mg 10/11/24 09:00 10/13/24 08:12 Enoxaparin 40 Mg/0.4 Ml Syringe SUBQ 40 mg DAILY SARI Administration Guaifenesin 1,200 mg 10/13/24 09:00 10/13/24 08:12 Guaifenesin 600 Mg Tablet PO 1,200 mg BID SARI Administration Hydralazine HCl 10 mg 10/11/24 06:25 Hydralazine 10 Mg Tablet PO Q8H PRN SBP> or= 160 OR DBP> or= 110 Insulin Glargine-yfgn 20 unit 10/11/24 21:00 10/12/24 21:00 Insulin Glargine-Yfgn 300 Unit/3 Ml Pen SUBQ 20 unit HS SARI Administration Insulin Human Lispro 1 - 9 unit 10/11/24 08:00 10/13/24 08:11 Insulin Lispro 300 Unit/3 Ml Pen SUBQ 1 unit 0800,1200,1700,2100 SARI Administration Protocol Ketorolac Tromethamine 15 mg 10/12/24 08:26 10/12/24 08:59 Ketorolac 15 Mg/Ml Vial IVP 10/17/24 08:25 15 mg Q6HR PRN Administration Severe Pain (Level 7-10) Lamotrigine 62.5 mg 10/12/24 09:00 10/13/24 08:13 Lamotrigine 25 Mg Tablet PO 62.5 mg DAILY SARI Administration Ondansetron HCl 4 mg 10/11/24 05:39 Ondansetron Odt 4 Mg Tablet TL Q6HR PRN Nausea / Vomiting Ondansetron HCl 4 mg 10/11/24 05:39 10/11/24 06:05 Ondansetron 4 Mg/2 Ml Vial IVP 4 mg Q6HR PRN Administration Nausea / Vomiting Polyethylene Glycol 17 gm 10/12/24 18:09 10/12/24 18:22 Polyethylene Glycol 3350 17 Gm Packet PO 17 gm DAILY PRN Administration Bowel Protocol Prazosin HCl 2 mg 10/11/24 21:00 10/12/24 21:01 Prazosin 1 Mg Capsule PO 2 mg HS SARI Administration Prednisone 40 mg 10/13/24 12:00 Prednisone 20 Mg Tablet PO DAILYWM SARI Topiramate 25 mg 10/11/24 21:00 10/12/24 21:01 Topiramate 25 Mg Tablet PO 25 mg HS SARI Administration Objective Vital Signs/Intake & Output Reviewed Vital Signs: Yes Vital Signs: Vital Signs x48h Temp Pulse Pulse Resp BP Pulse Ox 10/13/24 07:52 36.7 C 87 22 100/60 90 L 10/13/24 07:34 100 H 22 10/13/24 05:35 36.4 C L 66 20 119/66 94 Intake & Output: Intake & Output 10/11/24 10/12/24 10/13/24 10/14/24 05:59 05:59 05:59 05:59 Intake Total 2790 / 2790 4537 / 4537 610 / 610 Output Total 400 / 400 3100 / 3100 Balance 2390 / 2390 1437 / 1437 610 / 610 Weight (kg) 165.6 kg Objective General Appearance: positive No acute distress and Alert Eyes Bilateral: positive Normal inspection ENT: positive ENT inspection nml Neck: positive Nml inspection Respiratory: positive Chest non-tender, No respiratory distress, Wheezes and Rhonchi Cardiovascular: positive Regular rate & rhythm Abdomen: positive Non-tender and No distention Skin: positive Color nml and No rash Extremities: positive Non-tender and No pedal edema Neurologic/Psychiatric: positive Oriented x3 and CN's nml (2-12) Lab Results 10/13/24 05:40 10/13/24 05:40 Other Labs: Lab Results x24hrs 10/13/24 10/13/24 10/12/24 Range/Units 07:51 05:40 20:34 WBC 15.7 H (4.8-10.8) x10^3/uL RBC 4.61 (4.20-5.40) 10^6/uL Hgb 13.3 (12.0-16.0) g/dL Hct 41.7 (37.0-47.0) % MCV 90.5 (81.0-99.0) fL MCH 28.9 (27.0-31.0) pg MCHC 31.9 L (32.0-36.0) g/dL RDW 14.4 (12.0-15.0) % Plt Count 321 (130-450) 10^3/uL MPV 11.5 H (7.9-10.8) fL Neut # (Auto) 12.6 H (1.5-6.6) 10^3/uL Lymph # (Auto) 2.3 (1.5-3.5) 10^3/uL [place] # (Auto) 0.7 (0.0-1.0) 10^3/uL Eos # (Auto) 0.0 (0.0-0.7) 10^3/uL Baso # (Auto) 0.0 (0.0-0.1) 10^3/uL Absolute Nucleated RBC 0.00 x10^3/uL Nucleated RBC % 0.0 /100WBC Sodium 139 (135-145) mmol/L Potassium 4.2 (3.5-4.5) mmol/L Chloride 106 (101-111) mmol/L Carbon Dioxide 27 (21-32) mmol/L Anion Gap 6.0 (6-13) BUN 16 (6-20) mg/dL Creatinine 0.6 (0.6-1.3) mg/dL Estimated GFR (MDRD) 114 (>89) Glucose 153 H (74-104) mg/dL POC Whole Bld Glucose 146 193 (70-100) mg/dL Calcium 9.4 (8.5-10.3) mg/dL Magnesium 2.3 (1.7-2.3) mg/dL 10/12/24 Range/Units 16:43 WBC (4.8-10.8) x10^3/uL RBC (4.20-5.40) 10^6/uL Hgb (12.0-16.0) g/dL Hct (37.0-47.0) % MCV (81.0-99.0) fL MCH (27.0-31.0) pg MCHC (32.0-36.0) g/dL RDW (12.0-15.0) % Plt Count (130-450) 10^3/uL MPV (7.9-10.8) fL Neut # (Auto) (1.5-6.6) 10^3/uL Lymph # (Auto) (1.5-3.5) 10^3/uL [place] # (Auto) (0.0-1.0) 10^3/uL Eos # (Auto) (0.0-0.7) 10^3/uL Baso # (Auto) (0.0-0.1) 10^3/uL Absolute Nucleated RBC x10^3/uL Nucleated RBC % /100WBC Sodium (135-145) mmol/L Potassium (3.5-4.5) mmol/L Chloride (101-111) mmol/L Carbon Dioxide (21-32) mmol/L Anion Gap (6-13) BUN (6-20) mg/dL Creatinine (0.6-1.3) mg/dL Estimated GFR (MDRD) (>89) Glucose (74-104) mg/dL POC Whole Bld Glucose 124 (70-100) mg/dL Calcium (8.5-10.3) mg/dL Magnesium (1.7-2.3) mg/dL Assessment/Plan Problem List (1) Acute hypoxic respiratory failure: Impression: Desaturation test was performed and patient got significantly weak and dyspneic with activity. Will hold for 1 more day (2) Asthma exacerbation: Impression: Asthma exacerbation. She has been a non-smoker for 4 months now. She states that she uses flavored vapes without any THC or nicotine. She is not using any nicotine products she uses THC edibles she does not smoke anything aside from the flavored vapes. I discussed with her that these may not be the best for her pulmonary health. Her home regimen for asthma consists only of albuterol. She has been somewhat noncompliant with primary care follow-up. Continue Pulmicort, as needed DuoNeb Transition to prednisone Will Escalate inhaler regimen at discharge Qualifiers: Asthma persistence: persistent Asthma severity: moderate Qualified Code(s): J45.41 - Moderate persistent asthma with (acute) exacerbation (3) Acute bronchitis: Impression: Wheezes and rhonchi on exam. Fever fatigue. Positive rhinovirus on viral panel. Chest x-ray shows mild peribronchial wall thickening a suggestive of bronchitis. I am treating her with azithromycin for anti-inflammatory effects as well as steroids. She has been treated with albuterol Atrovent nebulizer treatments and Pulmicort nebulizer treatments in addition to IV steroids. (4) Diabetes mellitus: Impression: Has been noncompliant with primary care follow-up. Home medications include metformin 1000 mg in the morning and 500 mg in the evening. She states this is for her PCOS she is also on glargine insulin 20 units twice daily at home. I have placed her on basal insulin here 10 units of glargine at at bedtime with sliding scale. I obtain hemoglobin A1c as this had not been done in quite some time. It was 6.2%. This indicates reasonably good control of her diabetes. She does not check her blood sugars at home. We will recommend perinatal educator referral on discharge. She will need a prescription for a glucometer on discharge. (5) Class 3 severe obesity with body mass index (BMI) of 45.0 to 49.9 in adult: Impression: Patient with elevated BMI. I do not have an outpatient record of her weights. (6) Tobacco abuse disorder: Impression: Quit smoking 4 months ago. She states that she vapes flavored things does not vape nicotine does not vape THC. She is not using any tobacco products at this time.
[2024-10-13] MEDS: predniSONE 20 MG TABLET PO SCH (12:17)
[2024-10-13] MEDS: IBUPROFEN 400 MG TABLET PO PRN (17:10)
[2024-10-14] MEDS: IPRATROPIUM/ALBUTEROL 3 ML NEB INH SCH (05:09)
[2024-10-14 06:19] LABS: BASOPHILS % (AUTO) 0.2 %; EOSINOPHILS % (AUTO) 0.3 %; HCT - HEMATOCRIT 38.6 % (37.0-47.0); HGB - HEMOGLOBIN 12.7 g/dL (12.0-16.0); LYMPHOCYTES # (AUTO) 4.2 10^3/uL (1.5-3.5); LYMPHOCYTES % (AUTO) 30.3 %; MEAN CORPUSCULAR HEMOGLOBIN 29.2 pg (27.0-31.0); MEAN CORPUSCULAR HGB CONC 32.9 g/dL (32.0-36.0); MEAN CORPUSCULAR VOLUME 88.7 fL (81.0-99.0); MEAN PLATELET VOLUME 11.6 fL (7.9-10.8); MONOCYTES # (AUTO) 0.8 10^3/uL (0.0-1.0); MONOCYTES % (AUTO) 5.5 %; NEUTROPHILS # (AUTO) 8.7 10^3/uL (1.5-6.6); NEUTROPHILS % (AUTO) 62.6 %; PLT - PLATELET COUNT 258 10^3/uL (130-450); RED BLOOD COUNT 4.35 10^6/uL (4.20-5.40); RED CELL DISTRIBUTION WIDTH 14.5 % (12.0-15.0)
[2024-10-14 06:39] LABS: CALCIUM 8.7 mg/dL (8.5-10.3); CREATININE 0.7 mg/dL (0.6-1.3); MAGNESIUM 2.2 mg/dL (1.7-2.3); POTASSIUM 3.4 mmol/L (3.5-4.5)
[2024-10-14 07:51] VITALS: O2SAT 93
[2024-10-14] MEDS: POTASSIUM CHLORIDE 20 MEQ TABLET PO ONE (08:07)
--- NOTE | 2024-10-14 12:16 | Discharge Summary ---
Discharge Summary Admit Date: 10/11/24 Discharge Date: 10/14/24 Discharging Provider: Daniel Jackson NP Primary Care Provider: None Code Status: Attempt Resuscitation DIAGNOSES Admission Diagnoses: Leukocytosis Asthma exacerbation Rhinovirus Tachycardia Discharge Diagnoses with Status of Each Condition: Acute respiratory failure with hypoxemia Resolved Asthma exacerbation Resolved Acute asthmatic bronchitis Resolved Rhinovirus Active Diabetes mellitus Chronic Obesity, morbid, BMI 50 or higher Chronic Leukocytosis Active Tobacco abuse disorder Chronic HPI History of Present Illness: 34 yo F with PMH of Asthma/COPD, KARINA, Tobacco use, DM type 2, Depression, PTSD, PCOS, Obesity presented to the ER via EMS with c/o 3 day h/o SOB, Fever, congestion. Pt has had Asthma since about age 2. She walks her dog/exercises regularly w/o need for inhaler. She has asthma symptoms 1-2x/month d/t URI viral symptoms and from allergies, especially in the Spring. She uses steroid inhaler, rescue inhaler and also has Duonebs for PRN use. She has never been hospitalized for Asthma before; no h/o intubation for asthma. Pt has had no known contact with any sick persons. 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 Pt began to have URI symptoms 3-4 days ago: chest congestion, cough with green sputum, F/C with measured temp up to 104.4F, coryza, sore throat, shortness of breath, fatigue, myalgias. She called 911 today for worsened Shortness of breath. EMS gave her nebulizers and O2 enroute. In the ER, BP 160/96, HR 124, pOx 90% RA-93% 2L NC O2, WBC 12.3, Glc 144, LA 2.3, Viral Resp panel: +Rhinovirus CXR: Perihilar Bronchitis Pt was given Albuterol inh, Decadron 10 mg IV, Zyprexa 5 mg IM in the ER. ER Physician reports continued diffuse wheezing. HOSPITAL COURSE Hospital Course: Patient was placed in observation and given high-dose steroid regimen as well as nebulizer therapy. A1c was checked and found to be 6.7. Patient is now weaned off of oxygen this morning, and ambulates without desaturation. She is being discharged home to continue her steroid regimen. I have added Pulmicort. She will need to establish yourself with a primary care provider and follow-up in the diabetes education clinic. She has been given a prescription for glucose monitoring supplies as she requires high doses of Lantus ALLERGIES Allergies Allergy/AdvReac Type Severity Reaction Status Date / Time aripiprazole (From Abilify) Allergy Severe Anaphylaxis Verified 10/11/24 13:58 bee venom protein (honey bee) Allergy Unknown Verified 10/11/24 02:46 chlorhexidine (From Allergy Hives Verified 10/11/24 02:46 Hibiclens) codeine Allergy Hives Verified 10/11/24 02:46 Latex, Natural Rubber Allergy Unknown Verified 10/11/24 02:46 Penicillins Allergy Hives Verified 10/11/24 02:46 procaine (From Novocain) Allergy Unknown Verified 10/11/24 02:46 shellfish derived Allergy Unknown Verified 10/11/24 02:46 Sulfa (Sulfonamide Allergy Hives Verified 10/11/24 02:46 Antibiotics) MEDICATIONS Ambulatory Orders Medication Instructions Recorded Confirmed cyanocobalamin (vitamin B-12) 2,000 mcg PO DAILY 10/11/24 10/11/24 1,000 mcg tablet (Vitamin B-12) insulin glargine 100 unit/mL (3 20 unit subcut BID 10/11/24 10/11/24 mL) subcutaneous pen (Basaglar KwikPen U-100 Insulin) insulin syringe-needle U-100 1 mL 10/11/24 10/11/24 31 gauge x 5/16" (Sure Comfort Insulin Syringe) lamotrigine 25 mg tablet 62.5 mg PO DAILY 10/11/24 10/11/24 metformin 500 mg tablet 1,000 mg PO QDBREAKFAST 10/11/24 10/11/24 metformin 500 mg tablet 500 mg PO QDDINNER 10/11/24 10/11/24 prazosin 2 mg capsule 2 mg PO HS 10/11/24 10/11/24 topiramate 25 mg tablet 25 mg PO HS 10/11/24 10/11/24 albuterol sulfate 90 mcg/actuation 1 inh inhalation QID PRN shortness 10/14/24 aerosol inhaler (Ventolin HFA) of breath or wheezing #8.5 grams budesonide 90 mcg/actuation breath 1 inh inhalation BID #1 ea 10/14/24 activated powder inhaler guaifenesin 600 mg tablet, 1,200 mg (2 x 600 mg) PO BID 10 10/14/24 extended release 12 hr (Mucinex) days #40 tabs prednisone 20 mg tablet 40 mg (2 x 20 mg) PO DAILYWM 2 10/14/24 days #4 tabs PHYSICAL EXAM AT DISCHARGE General Appearance: positive No acute distress and Other (Obese) Eyes Bilateral: positive Normal inspection and PERRL ENT: positive Other (Some swelling and tenderness in her submandibular lymph nodes) Neck: positive Nml inspection Respiratory: positive Chest non-tender and No respiratory distress Cardiovascular: positive Regular rate & rhythm Peripheral Pulses: positive 2+ Abdomen: positive Non-tender Skin: positive Color nml Extremities: positive Non-tender Neurologic/Psychiatric: positive Oriented x3 LABS 10/14/24 05:34 10/14/24 05:34 FOLLOW UP Follow Up: With PCP, diabetes education clinic TIME SPENT Time Spent in Discharge (Minutes): 35 Discharge Plan Discharge Patient Disposition: 01 Home, Self Care Condition: Stable Medically Cleared Date:: 10/14/24 Prescriptions: New guaifenesin [Mucinex] 600 mg Tablet Extended Release 12hr 1,200 mg PO BID 10 Days Qty: 40 0RF prednisone 20 mg Tablet 40 mg PO DAILYWM 2 Days Qty: 4 0RF budesonide 90 mcg/actuation aerosol powdr breath activated 1 inh inhalation BID Qty: 1 2RF albuterol sulfate [Ventolin HFA] 90 mcg/actuation HFA aerosol inhaler 1 inh inhalation QID PRN (Reason: shortness of breath or wheezing) Qty: 8.5 0RF Continued metformin 500 mg tablet 500 mg PO QDDINNER Patient Comments: TAKE 2 TABLETS BY MOUTH DAILY WITH BREAKFAST AND 1 TABLET NIGHTLY WITH DINNER FOR DIABETES topiramate 25 mg tablet 25 mg PO HS lamotrigine 25 mg tablet 62.5 mg PO DAILY (DME) insulin syringe-needle U-100 [Sure Comfort Insulin Syringe] 1 mL 31 gauge x 5/16 syringe MISCELLANEOUS Patient Comments: USE 1 SYRINGE TO INJECT INSULIN BEFORE MEALS UP TO 4 TIMES DAILY DIRECTED prazosin 2 mg capsule 2 mg PO HS Patient Comments: TAKE ONE CAPSULE BY MOUTH NIGHTLY AT BEDTIME FOR BLOOD PRESSURE AND NIGHTMARES insulin glargine [Basaglar KwikPen U-100 Insulin] 100 unit/mL (3 mL) insulin pen 20 unit SUBCUT BID Patient Comments: INJECT 20 UNITS SUBCUTANEOUSLY TWICE DAILY metformin 500 mg tablet 1,000 mg PO QDBREAKFAST cyanocobalamin (vitamin B-12) [Vitamin B-12] 1,000 mcg tablet 2,000 mcg PO DAILY Diet: Diabetic Health Concerns: You are a 34-year-old female with past medical history of asthma/COPD, tobacco use, type 2 diabetes, depression, PTSD, PCOS. You presented to the ER with shortness of breath, fever, congestion. You were admitted into the hospital for a acute asthma exacerbation. You were noted to be positive for rhinovirus. We put you on high-dose steroids as well as multiple nebulizers. I am prescribing a low-dose steroid inhaler for you to take at home. I am sending you home on a steroid pill, which she will take for a few days. I would like for you to establish yourself with a primary care provider and then to follow-up with the diabetes education clinic. I have written you a prescription for glucose monitoring supplies Plan of Treatment: Oral steroid Inhaled steroid Follow-up with PCP, diabetes clinic Print Language: Indonesian Patient Instructions: Asthma Stand Alone Forms: PCP List
== END 2024-10-14 12:50 | disposition home or self-care (01) ==
LOC: MS2 02:29 → ED 02:29 → MS2 07:06
PROVIDERS: ADMIT Internal Medicine; ATTEND Internal Medicine
DX: E28.2 Polycystic ovarian syndrome; J44.0 Chronic obstructive pulmonary disease with (acute) lower respiratory infection; E66.01 Morbid (severe) obesity due to excess calories; J45.42 Moderate persistent asthma with status asthmaticus; Z87.891 Personal history of nicotine dependence; F43.10 Post-traumatic stress disorder, unspecified; J20.6 Acute bronchitis due to rhinovirus; Z68.43 Body mass index [BMI] 50.0-59.9, adult; Z79.84 Long term (current) use of oral hypoglycemic drugs; J96.01 Acute respiratory failure with hypoxia; E11.9 Type 2 diabetes mellitus without complications; Z91.199 Patient's noncompliance with other medical treatment and regimen due to unspecified reason; R00.0 Tachycardia, unspecified; Z79.4 Long term (current) use of insulin